=== PATIENT | male | born 1985 | race African-American/Black ===

== ENCOUNTER 2017-11-03 01:10 | Emergency (ER) | payer SELFPAY ==
[~2017-11-03] VITALS: Ht 175.3 cm; Wt 83.9 kg
[2017-11-03 01:15] VITALS: BP 115/83
--- NOTE | 2017-11-03 01:21 | NUR ---
PT TO BED 9
--- NOTE | 2017-11-03 01:40 | NUR ---
31/M CAME IN ED, C/O 10/10 BL FEET PRESSURE-LIKE PAIN AND SWELLING, X3 WEEKS, WORSENING X1 DAY. PT REPORTS PAIN ON TOP OF L FOOT WHEN AMBULATING. SLIGHT SWELLING AND SLIGHT REDNESS NOTED ON TOE, +TENDERNESS, CAP REFILL<3S. APPROXIMATELY 1 INCH CUT NOTED ON L FOOT. PT WENT TO [facility] TODAY, WAS DX WITH DERMATITIS, RX BACITRACIN WHICH PT DID NOT FILL YET. PT DENIES MED HX, RX. NKA. ER MD MADE AWARE.
--- NOTE | 2017-11-03 02:40 | NUR ---
DR EVALUATING AT BEDSIDE
[2017-11-03] MEDS ORDERED: KETOROLAC 30 MG/ML VIAL IM ONE (02:45)
--- NOTE | 2017-11-03 03:10 | NUR ---
PT PROVIDED WITH HOMELESS RESOURCE PACKET AND BUS PASS FOR TRANSPORTATION.
[2017-11-03 03:19] VITALS: BP 111/65
--- NOTE | 2017-11-03 03:19 | NUR ---
Patient discharged with v/s stable. Written and verbal after care instructions given and explained. Patient alert, oriented and verbalized understanding of instructions. Ambulatory with crutches. All questions addressed prior to discharge. ID band removed. Patient advised to follow up with PMD. Rx of NAPROSYN given. Patient educated on indication of medication including possible reaction and side effects. Opportunity to ask questions provided and answered.
== END 2017-11-03 03:19 | disposition home or self-care (01) ==
LOC: MED 01:10
DX: M79.671 Pain in right foot (principal); M79.672 Pain in left foot; M79.1 Myalgia; Z59.0 Homelessness
CPT/HCPCS: 96372; 99283; J1885

== ENCOUNTER 2017-11-20 18:47 | Emergency (ER) | payer SELFPAY ==
[~2017-11-20] VITALS: Ht 175.3 cm; Wt 90.3 kg
[2017-11-20 18:57] VITALS: BP 136/84
--- NOTE | 2017-11-20 20:04 | NUR ---
PT AMBULATED TO ER BED 01
--- NOTE | 2017-11-20 20:10 | NUR ---
CAME IN WITH C/O BILATERAL FOOT, ANKLES, TOES FOR A WEEK, NO TRAUMA NOR INJURY, HE WALKS ALL DAY.
[2017-11-20 21:06] VITALS: BP 119/75
--- NOTE | 2017-11-20 21:12 | NUR ---
Patient discharged with v/s stable. Written and verbal after care instructions given and explained. Patient alert, oriented and verbalized understanding of instructions. Ambulatory with steady gait. All questions addressed prior to discharge. ID band removed. Patient advised to follow up with PMD. Rx of COLCHICINE 0.6MG, ALLOPURINOL 300MG, given. Patient educated on indication of medication including possible reaction and side effects. Opportunity to ask questions provided and answered.
== END 2017-11-20 21:12 | disposition home or self-care (01) ==
LOC: MED 18:47
DX: M10.072 Idiopathic gout, left ankle and foot (principal); M10.071 Idiopathic gout, right ankle and foot; M10.062 Idiopathic gout, left knee; M10.061 Idiopathic gout, right knee
CPT/HCPCS: 99283

== ENCOUNTER 2017-12-05 17:45 | Emergency (ER) | payer SELFPAY ==
[~2017-12-05] VITALS: Ht 175.3 cm; Wt 96.6 kg
[2017-12-05 18:00] VITALS: BP 112/64
--- NOTE | 2017-12-05 18:05 | NUR ---
pt to lobby awaiting avaiable room with steady gait. vss. nad.
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
--- NOTE | 2017-12-05 19:14 | NUR ---
REPORT RECIEVED FROM BIENVENIDO KNAPP. ASSUMED CARE OF PT.
[2017-12-05] MEDS: SILVER SULFADIAZINE 1% 50 GM JAR TP ONE (19:34)
[2017-12-05 19:47] VITALS: BP 118/69
--- NOTE | 2017-12-05 19:48 | NUR ---
Patient discharged with v/s stable. Written and verbal after care instructions given and explained. Patient alert, oriented and verbalized understanding of instructions. Ambulatory with steady gait. All questions addressed prior to discharge. ID band removed. Patient advised to follow up with PMD. Rx of BACITRACIN, TYLENOL given. Patient educated on indication of medication including possible reaction and side effects. Opportunity to ask questions provided and answered.
== END 2017-12-05 19:48 | disposition home or self-care (01) ==
LOC: MED 17:45
DX: T23.271A Burn of second degree of right wrist, initial encounter (principal); E07.9 Disorder of thyroid, unspecified; Z88.8 Allergy status to other drugs, medicaments and biological substances; Z91.013 Allergy to seafood; X13.1XXA Other contact with steam and other hot vapors, initial encounter; Y93.89 Activity, other specified; Y92.89 Other specified places as the place of occurrence of the external cause; Y99.8 Other external cause status
CPT/HCPCS: 16020; 99284

== ENCOUNTER 2017-12-08 12:54 | Emergency (ER) | payer MEDICAID ==
[~2017-12-08] VITALS: Ht 175.3 cm; Wt 85.3 kg
[2017-12-08 13:08] VITALS: BP 129/92
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
--- NOTE | 2017-12-08 13:29 | NUR ---
PT GIVEN DOG BITE REPORT FORM AT THIS TIME
[2017-12-08] MEDS ORDERED: KETOROLAC 60 MG/2 ML VIAL IM ONE (13:45)
[2017-12-08 14:17] VITALS: BP 129/92
--- NOTE | 2017-12-08 14:17 | NUR ---
Patient discharged with v/s stable. Written and verbal after care instructions given and explained. Patient alert, oriented and verbalized understanding of instructions. Ambulatory with steady gait. All questions addressed prior to discharge. ID band removed. Patient advised to follow up with PMD. Rx of NORCO AND MOTRIN given. Patient educated on indication of medication including possible reaction and side effects. Opportunity to ask questions provided and answered.
== END 2017-12-08 14:15 | disposition home or self-care (01) ==
LOC: MED 12:54
DX: M25.561 Pain in right knee (principal); K21.9 Gastro-esophageal reflux disease without esophagitis; M10.9 Gout, unspecified; M19.90 Unspecified osteoarthritis, unspecified site; Z91.013 Allergy to seafood; Z91.041 Radiographic dye allergy status
CPT/HCPCS: 96372; 99283; J1885

== ENCOUNTER 2017-12-18 22:46 | Emergency (ER) | payer MEDICAID ==
[~2017-12-18] VITALS: Ht 175.3 cm; Wt 85.3 kg
[2017-12-18 22:57] VITALS: BP 120/74
[2017-12-18] MEDS ORDERED: KETOROLAC 30 MG/ML VIAL IM ONE (23:55)
[2017-12-19] MEDS ORDERED: IBUPROFEN 600 MG TAB PO ONE (00:10)
[2017-12-19 00:44] VITALS: BP 120/74
== END 2017-12-19 00:48 | disposition home or self-care (01) ==
LOC: MED 22:46
DX: S46.912A Strain of unspecified muscle, fascia and tendon at shoulder and upper arm level, left arm, initial encounter (principal); K21.9 Gastro-esophageal reflux disease without esophagitis; E07.9 Disorder of thyroid, unspecified; F17.200 Nicotine dependence, unspecified, uncomplicated; Z88.8 Allergy status to other drugs, medicaments and biological substances; X58.XXXA Exposure to other specified factors, initial encounter; Y93.89 Activity, other specified; Y92.89 Other specified places as the place of occurrence of the external cause; Y99.8 Other external cause status
CPT/HCPCS: 73030; 99284; J1885

== ENCOUNTER 2017-12-21 23:38 | Emergency (ER) | payer MEDICAID ==
[~2017-12-21] VITALS: Ht 175.3 cm; Wt 89.6 kg
[2017-12-21 23:40] VITALS: BP 119/92
[2017-12-22] MEDS: IBUPROFEN 800 MG TAB PO ONE (03:09)
[2017-12-22] MEDS: HYDROcodone/APAP 10/325 MG 1 TAB TAB PO ONE (03:10)
[2017-12-22 03:30] VITALS: BP 119/92
== END 2017-12-22 03:30 | disposition home or self-care (01) ==
LOC: MED 23:38
DX: M25.512 Pain in left shoulder (principal); K21.9 Gastro-esophageal reflux disease without esophagitis; E07.9 Disorder of thyroid, unspecified; Z88.8 Allergy status to other drugs, medicaments and biological substances
CPT/HCPCS: 73030; 99284; Q0092

== ENCOUNTER 2018-01-29 08:50 | Emergency (ER) | payer OTHER, MEDICAID ==
[~2018-01-29] VITALS: Ht 177.8 cm; Wt 90.3 kg
[2018-01-29 08:56] VITALS: BP 116/68
[2018-01-29 10:11] VITALS: BP 105/64
== END 2018-01-29 10:11 | disposition home or self-care (01) ==
LOC: MED 08:50
DX: S90.32XA Contusion of left foot, initial encounter (principal); Z91.013 Allergy to seafood; Z88.8 Allergy status to other drugs, medicaments and biological substances; X58.XXXA Exposure to other specified factors, initial encounter; Y93.89 Activity, other specified; Y92.89 Other specified places as the place of occurrence of the external cause; Y99.8 Other external cause status
CPT/HCPCS: 99283

== ENCOUNTER 2018-02-02 07:05 | Emergency (ER) | payer OTHER, MEDICAID ==
[~2018-02-02] VITALS: Ht 177.8 cm; Wt 88.5 kg
[2018-02-02 07:13] VITALS: BP 120/88
[2018-02-02] MEDS ORDERED: NEOMYCIN/POLYMYXIN/BACITRACIN 0.9 GM/1 PKT TP ONE (07:39)
[2018-02-02 07:47] VITALS: BP 120/88
== END 2018-02-02 07:47 | disposition home or self-care (01) ==
LOC: MED 07:05
DX: L85.3 Xerosis cutis (principal); K21.9 Gastro-esophageal reflux disease without esophagitis; R03.0 Elevated blood-pressure reading, without diagnosis of hypertension; Z91.013 Allergy to seafood; Z88.8 Allergy status to other drugs, medicaments and biological substances
CPT/HCPCS: 99283

== ENCOUNTER 2018-02-14 07:46 | Emergency (ER) | payer OTHER, MEDICAID ==
[~2018-02-14] VITALS: Ht 177.8 cm; Wt 88.5 kg
[2018-02-14 07:50] VITALS: BP 136/78
--- NOTE | 2018-02-14 07:54 | NUR ---
PT AMBULATES TO BED 2 WITHOUT DIFFICULTY
--- NOTE | 2018-02-14 08:00 | NUR ---
C/O ALL 10 DIGITS TOE PAIN STARTED TODAY 09/12; - INJURY, INFLMATION, OR DIFFORMITY; ABLE TO AMBULATE TO BED 2 WITHOUT DIFFICULTY. DENIES N/V/D; SKIN IS PINK/WARM/DRY; AAOX4 WITH EVEN AND STEADY GAIT; LUNGS CLEAR BL; HR EVEN AND REGULAR; PT DENIES ANY FEVER, CP, SOB, OR COUGH AT THIS TIME; VSS; PATIENT POSITIONED FOR COMFORT; HOB ELEVATED; BEDRAILS UP X2; BED DOWN. ER MD MADE AWARE OF PT STATUS.
[2018-02-14 08:22] VITALS: BP 136/78
--- NOTE | 2018-02-14 08:24 | NUR ---
Patient discharged with v/s stable. Written and verbal after care instructions given and explained. Patient verbalized understanding. Ambulatory with steady gait. All questions addressed prior to discharge. Advised to follow up with PMD. Patient left without discharge paperwork.
== END 2018-02-14 08:24 | disposition home or self-care (01) ==
LOC: MED 07:46
DX: M79.674 Pain in right toe(s) (principal); M79.675 Pain in left toe(s); K21.9 Gastro-esophageal reflux disease without esophagitis; E07.9 Disorder of thyroid, unspecified; Z88.8 Allergy status to other drugs, medicaments and biological substances; Z91.018 Allergy to other foods
CPT/HCPCS: 99281

== ENCOUNTER 2018-02-23 19:48 | Emergency (ER) | payer OTHER, MEDICAID ==
[~2018-02-23] VITALS: Ht 177.8 cm; Wt 90.3 kg
--- NOTE | 2018-02-23 19:48 | NUR ---
Patient BIB [place] [employer] for pre-booking medical screening exam, transferred to bed 9. RN evaluating patient at bedside.
[2018-02-23 19:50] VITALS: BP 111/83
--- NOTE | 2018-02-23 19:59 | NUR ---
32 YO M BIB [facility] FOR PRE-BOOK. PT WAS TACKLED TO THE GROUP HAS A SMALL LACERATION TO RIGHT FORHEARD. PT DENIES N/V, LOC OR PAIN AT THIS TIME. BED IN LOWER LOCKED POSITION. ER MD MADE AWARE OF PT STATUS. WILL CONTINUE TO MONITOR.
--- NOTE | 2018-02-23 20:03 | NUR ---
Dr. Hicsk evaluating patient at bedside.
[2018-02-23 20:21] VITALS: BP 119/88
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
== END 2018-02-23 20:22 ==
LOC: MED 19:48
DX: S00.81XA Abrasion of other part of head, initial encounter (principal); K21.9 Gastro-esophageal reflux disease without esophagitis; Z91.013 Allergy to seafood; Z88.8 Allergy status to other drugs, medicaments and biological substances; W45.8XXA Other foreign body or object entering through skin, initial encounter; Y93.89 Activity, other specified; Y92.89 Other specified places as the place of occurrence of the external cause; Y99.8 Other external cause status
CPT/HCPCS: 99283

== ENCOUNTER 2018-02-24 19:43 | Emergency (ER) | payer OTHER, MEDICAID ==
[~2018-02-24] VITALS: Ht 177.8 cm; Wt 90.3 kg
[2018-02-24 19:55] VITALS: BP 124/82
--- NOTE | 2018-02-24 19:55 | NUR ---
TO BED # 6 AMBULATORY, REPORT GIVEN TO JONELLE FARIA
--- NOTE | 2018-02-24 20:09 | NUR ---
PT BIB SELF FOR L GREAT TOE PAIN X2 DAYS. PT REPORTS PAIN AT 7/10. NO REDNESS, EDEMA, OR DEFORMITY PRESENT. PT HAS STEADY GAIT, PT REPORTS TINGLING/BURNING FEELING IN TOE. PT REPORTS HE WAS TRYING TO STOP, HE WAS WEARING SANDALS, AND HIS TOE BENT BACKWARDS. PT STATES THAT WEARING SHOES AND WALKING INCREASES THE PAIN. ER MD TO SEE PT. SAFETY PRECAUTIONS IN PLACE. WILL CONTINUE TO MONITOR.
--- NOTE | 2018-02-24 20:11 | NUR ---
X-RAY AT BEDSIDE
[2018-02-24 21:05] VITALS: BP 122/92
== END 2018-02-24 21:05 | disposition home or self-care (01) ==
LOC: MED 19:43
DX: S93.502A Unspecified sprain of left great toe, initial encounter (principal); K21.9 Gastro-esophageal reflux disease without esophagitis; Z91.013 Allergy to seafood; Z88.8 Allergy status to other drugs, medicaments and biological substances; V27.3XXA Person boarding or alighting a motorcycle injured in collision with fixed or stationary object, initial encounter; Y93.55 Activity, bike riding; Y92.488 Other paved roadways as the place of occurrence of the external cause; Y99.8 Other external cause status
CPT/HCPCS: 73630; 99283; Q0092

== ENCOUNTER 2018-03-15 03:35 | Emergency (ER) | payer OTHER, MEDICAID ==
[~2018-03-15] VITALS: Ht 177.8 cm; Wt 84.0 kg
[2018-03-15 03:46] VITALS: BP 126/73
--- NOTE | 2018-03-15 03:50 | NUR ---
AMBULATED TO ER BED 4
--- NOTE | 2018-03-15 03:54 | NUR ---
Patient being evaluated by physician at bedside.
--- NOTE | 2018-03-15 03:55 | NUR ---
32/M PRESENTS TO ED, C/O PAIN ON BL SOLES OF FEET. DRY NOTED, SKIN INTACT, +CIRCULATION, +SENSATION, +ROM. PT REQUESTING FOR "INSOLES FOR MY FEET." PT ALSO HAS 5 GANESH ON TOP OF HEAD, APPROXIMATED WELL, NO S/S OF INFECTION AT THIS TIME. PT IS HOMELESS, POOR HYGIENE NOTED, AOX4, GCS 15, RR EVEN AND UNLABORED. ER MD AT BEDSIDE. DENIES MED HX OR RX.
--- NOTE | 2018-03-15 03:56 | NUR ---
PT DENIES BEING HOMELESS, STATES THAT HE DOES HAVE A HOME.
[2018-03-15] MEDS ORDERED: IBUPROFEN 800 MG TAB PO ONE (04:00)
--- NOTE | 2018-03-15 04:30 | NUR ---
PT GIVEN SANDWICH AND SNACKS
--- NOTE | 2018-03-15 05:00 | NUR ---
PT DENIES BEING HOMELESS. PT WITH APPROPRIATE CLOTHING FOR WEATHER. PT REFUSED BUS PASS, PT TO ARRANGE OWN TRANSPORTATION.
[2018-03-15 05:05] VITALS: BP 130/70
== END 2018-03-15 05:05 | disposition home or self-care (01) ==
LOC: EDBD → MED 03:35
DX: M79.671 Pain in right foot (principal); M79.672 Pain in left foot; K21.9 Gastro-esophageal reflux disease without esophagitis; E07.9 Disorder of thyroid, unspecified; Z88.8 Allergy status to other drugs, medicaments and biological substances; Z91.018 Allergy to other foods; Z59.0 Homelessness
CPT/HCPCS: 99282

== ENCOUNTER 2018-03-16 12:25 | Emergency (ER) | payer OTHER, MEDICAID ==
[~2018-03-16] VITALS: Ht 177.8 cm; Wt 88.0 kg
[2018-03-16 12:54] VITALS: BP 117/71
[2018-03-16 14:49] VITALS: BP 116/72
== END 2018-03-16 14:51 | disposition home or self-care (01) ==
LOC: MED 12:25
DX: M25.512 Pain in left shoulder (principal); K21.9 Gastro-esophageal reflux disease without esophagitis; E07.9 Disorder of thyroid, unspecified; Z88.8 Allergy status to other drugs, medicaments and biological substances; Z91.013 Allergy to seafood; W18.39XA Other fall on same level, initial encounter; Y93.89 Activity, other specified; Y92.89 Other specified places as the place of occurrence of the external cause; Y99.8 Other external cause status
CPT/HCPCS: 73030; 99283

== ENCOUNTER 2018-03-18 15:57 | Emergency (ER) | payer MEDICAID, OTHER ==
--- NOTE | 2018-03-18 16:00 | NUR ---
PT CALLED, NO RESPONSE
--- NOTE | 2018-03-18 16:15 | NUR ---
PT CALLED, NO RESPONSE.
--- NOTE | 2018-03-18 16:27 | NUR ---
PT CALLED, NO RESPONSE. PT SEEN WALKING OUTSIDE THE HOSPITAL OVER BY [facility] OFF CAMPUS PROPERTY PER ADMITTING.
== END 2018-03-18 16:27 | disposition left against medical advice (07) ==
LOC: EDBD → MED 15:57
DX: Z53.21 Procedure and treatment not carried out due to patient leaving prior to being seen by health care provider (principal)

== ENCOUNTER 2018-03-18 16:43 | Emergency (ER) | payer MEDICAID, OTHER ==
--- NOTE | 2018-03-18 16:47 | NUR ---
PT CALLED NO RESPONSE
--- NOTE | 2018-03-18 17:00 | NUR ---
PT CALLED, NO RESPONSE
--- NOTE | 2018-03-18 17:25 | NUR ---
PT CALLED, NO RESPONSE
--- NOTE | 2018-03-18 17:48 | NUR ---
PT CALLED, NO RESPONSE
--- NOTE | 2018-03-18 17:57 | NUR ---
PT CALLED, NO REPSONSE
--- NOTE | 2018-03-18 18:15 | NUR ---
PT CALLED, NO RESPONSE
== END 2018-03-18 18:15 | disposition left against medical advice (07) ==
LOC: EDBD → MED 16:43
DX: Z53.21 Procedure and treatment not carried out due to patient leaving prior to being seen by health care provider (principal)

== ENCOUNTER 2018-03-19 01:00 | Emergency (ER) | payer OTHER, MEDICAID ==
[~2018-03-19] VITALS: Ht 177.8 cm; Wt 90.3 kg
--- NOTE | 2018-03-19 01:05 | NUR ---
TO BED # 4 AMBULATORY, REPORT GIVEN TO ONEAL FARIA
--- NOTE | 2018-03-19 01:07 | NUR ---
PT TAKEN TO BED 5
--- NOTE | 2018-03-19 01:10 | NUR ---
Dr. Vizcarra evaluating patient at bedside.
[2018-03-19] MEDS ORDERED: ONDANSETRON 4 MG TAB PO ONE (01:15)
--- NOTE | 2018-03-19 01:20 | NUR ---
32/M PRESENTS TO ED, C/O 9/10 EPIGASTRIC PAIN, X2 DAYS. PT REPORTS N/V. DENIES FEVER. PT AOX4, GCS 15, RR EVEN AND UNLABORED. LUNG SOUNDS CLEAR BL. BS ACTIVE X4, ABD SOFT ROUND NONTENDER. DENIES MED HX OR RX.
[2018-03-19] MEDS: KETOROLAC 30 MG/ML VIAL IM ONE ×2 (01:21→01:22)
--- NOTE | 2018-03-19 01:23 | NUR ---
PT REFUSED TORADOL IM DESPITE EDUCATION, PT STATED "I DON'T WANT THAT. MAKES ME SLEEPY." ER MADE AWARE.
[2018-03-19] MEDS ORDERED: IBUPROFEN 800 MG TAB PO ONE (01:25)
[2018-03-19 01:32] LABS: APPEARANCE,URINE CLEAR (CLEAR); BILIRUBIN,URINE NEGATIVE (NEGATIVE); BLOOD, URINE NEGATIVE (NEGATIVE); COLOR,URINE YELLOW (YELLOW); LEUKOCYTE ESTERASE ,URINE NEGATIVE (NEGATIVE); NITRITE, URINE NEGATIVE (NEGATIVE); UGLUCOSE NEGATIVE (NEGATIVE)
[2018-03-19 01:39] LABS: BASOPHILS % (AUTO) 0.5 % (0.0-2.0); EOSINOPHILS # (AUTO) 0.1 K/uL (0-0.4); EOSINOPHILS % (AUTO) 1.9 % (0.0-4.0); HEMATOCRIT 40.8 % (36-52); HEMOGLOBIN 13.2 g/dL (12.0-18.0); LYMPHOCYTES # (AUTO) 1.7 K/uL (2.0-11.5); LYMPHOCYTES % (AUTO) 27.4 % (20.5-51.1); MEAN CORPUSCULAR HEMOGLOBIN 30 pg (27-31); MEAN CORPUSCULAR HGB CONC 33 g/dL (33-37); MEAN CORPUSCULAR VOLUME 93.4 fL (80-94); MONOCYTES # (AUTO) 0.6 K/uL (0.8-1.0); MONOCYTES % (AUTO) 9.4 % (1.7-9.3); NEUTROPHILS # (AUTO) 3.7 K/uL (1.8-7.7); NEUTROPHILS % (AUTO) 60.8 % (42.2-75.2); PLATELET COUNT (AUTO) 237 K/uL (140-450); RED BLOOD CELL COUNT(AUTO) 4.36 MIL/uL (4.20-6.10); RED CELL DISTRIBUTION WIDTH 14.5 % (11.6-13.7); WHITE BLOOD COUNT (AUTO) 6.1 K/uL (4.8-10.8)
[2018-03-19 01:47] LABS: ALBUMIN 3.5 g/dL (3.4-5.0); CARBON DIOXIDE 30.5 mmol/L (21-32); TOTAL BILIRUBIN 0.3 mg/dL (0.0-1.0)
[2018-03-19 01:57] LABS: ANION GAP 7.6 (8-16); POTASSIUM 4.1 mmol/L (3.5-5.1)
--- NOTE | 2018-03-19 02:10 | NUR ---
DISCHARGE PAPERWORK READY, PT OK TO BE DISCHARGED IN EARLY AM PER ER MD
[2018-03-19 06:35] VITALS: BP 138/84
--- NOTE | 2018-03-19 06:35 | NUR ---
Patient given written and verbal discharge instructions and verbalizes understanding. Given copies of tests performed during visit. Patient is awake, alert and oriented. Ambulatory with steady gait. Refuses offer of nursing home placement. Given list of available shelters in surrounding areas.
== END 2018-03-19 06:35 | disposition home or self-care (01) ==
LOC: EDBD → MED 01:00
DX: R10.9 Unspecified abdominal pain (principal); R11.2 Nausea with vomiting, unspecified; K21.9 Gastro-esophageal reflux disease without esophagitis; E07.9 Disorder of thyroid, unspecified; Z88.8 Allergy status to other drugs, medicaments and biological substances; Z91.018 Allergy to other foods
CPT/HCPCS: 36415; 80053; 81003; 83690; 85025; 99283; J1885; Q0162

== ENCOUNTER 2018-03-19 15:09 | Emergency (ER) | payer OTHER, MEDICAID ==
[~2018-03-19] VITALS: Ht 177.8 cm; Wt 90.3 kg
[2018-03-19 15:24] VITALS: BP 122/76
--- NOTE | 2018-03-19 15:28 | NUR ---
PATIENT TO LOBBY FOR NEXT AVAIL. BED. XR ORDERED
--- NOTE | 2018-03-19 17:25 | NUR ---
CALLED PT FROM [facility] @ [phone]. NO ANSWER.
--- NOTE | 2018-03-19 17:58 | NUR ---
CALLED TO A BED, NO ANSWER.VIJAYA HURTADO AWARE/DR. CAN AWARE
== END 2018-03-19 17:58 | disposition left against medical advice (07) ==
LOC: EDBD → MED 15:09
DX: M54.2 Cervicalgia (principal); M25.511 Pain in right shoulder; Z53.21 Procedure and treatment not carried out due to patient leaving prior to being seen by health care provider; W01.0XXA Fall on same level from slipping, tripping and stumbling without subsequent striking against object, initial encounter; Y93.89 Activity, other specified; Y92.89 Other specified places as the place of occurrence of the external cause; Y99.8 Other external cause status
CPT/HCPCS: 72040; 73030; 99281

== ENCOUNTER 2018-03-20 08:18 | Emergency (ER) | payer OTHER, MEDICAID ==
[~2018-03-20] VITALS: Ht 172.7 cm; Wt 75.7 kg
[2018-03-20 08:23] VITALS: BP 128/77
[2018-03-20 08:34] VITALS: BP 121/75
== END 2018-03-20 08:34 | disposition home or self-care (01) ==
LOC: EDBD → MED 08:18
DX: S01.01XD Laceration without foreign body of scalp, subsequent encounter (principal); K21.9 Gastro-esophageal reflux disease without esophagitis; E07.9 Disorder of thyroid, unspecified; Z88.8 Allergy status to other drugs, medicaments and biological substances; Z91.018 Allergy to other foods; X58.XXXD Exposure to other specified factors, subsequent encounter
CPT/HCPCS: 99283

== ENCOUNTER 2018-03-23 01:27 | Emergency (ER) | payer OTHER, MEDICAID ==
[~2018-03-23] VITALS: Ht 177.8 cm; Wt 93.0 kg
--- NOTE | 2018-03-23 01:39 | NUR ---
NO ANSWER FOR TRIAGE AT THIS TIME.
[2018-03-23 01:54] VITALS: BP 121/83
--- NOTE | 2018-03-23 02:00 | NUR ---
Pt brought to Chair E. Pt demanding physical therapy for his back and leg. Dr De Leon ordered Torodol and pt refused it. Still argumentative and demanding PT despite informing pt that must be ordered by the doctor, possibly arrangement needed by case management which is here during the day, and PT is only here during the day.
--- NOTE | 2018-03-23 02:01 | NUR ---
PT TAKEN TO CHAIR E
[2018-03-23] MEDS ORDERED: KETOROLAC 60 MG/2 ML VIAL IM ONE (02:35)
[2018-03-23 02:55] VITALS: BP 121/83
--- NOTE | 2018-03-23 02:55 | NUR ---
Patient discharged with v/s stable. Written and verbal after care instructions given and explained. Patient verbalized understanding. Ambulatory with steady gait. All questions addressed prior to discharge. Advised to follow up with PMD. PT WAS GIVEN RECOMMENDATION REFFERAL TO DR. [facility]. PT UNDRSTOOD THE OUTPATIENT CARE.
== END 2018-03-23 02:55 | disposition home or self-care (01) ==
LOC: MED 01:27
DX: M79.605 Pain in left leg (principal); K21.9 Gastro-esophageal reflux disease without esophagitis; E07.9 Disorder of thyroid, unspecified; Z88.8 Allergy status to other drugs, medicaments and biological substances; Z91.018 Allergy to other foods
CPT/HCPCS: 96372; 99281; 99283

== ENCOUNTER 2018-03-25 11:20 | Emergency (ER) | payer OTHER, MEDICAID ==
[~2018-03-25] VITALS: Ht 177.8 cm; Wt 90.7 kg
--- NOTE | 2018-03-25 11:37 | NUR ---
PT AMBULATED TO ER BED 03
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
[2018-03-25 11:41] VITALS: BP 126/88
--- NOTE | 2018-03-25 13:00 | NUR ---
Patient being evaluated by physician at bedside.
[2018-03-25] MEDS ORDERED: BACITRACIN OINT 500 UNITS/GM PKT TP ONE ×2 (13:20→13:25)
--- NOTE | 2018-03-25 13:20 | NUR ---
bus voucher given to pt
--- NOTE | 2018-03-25 13:20 | NUR ---
pt given verbal order for bacitracin ointment
[2018-03-25 13:22] VITALS: BP 121/87
--- NOTE | 2018-03-25 13:22 | NUR ---
Patient discharged with v/s stable. Written and verbal after care instructions given and explained. Patient alert, oriented and verbalized understanding of instructions. Ambulatory with steady gait. All questions addressed prior to discharge. ID band removed. Patient advised to follow up with PMD. Rx of bactroban given. Patient educated on indication of medication including possible reaction and side effects. Opportunity to ask questions provided and answered.
== END 2018-03-25 13:22 | disposition home or self-care (01) ==
LOC: MED 11:20
DX: L73.9 Follicular disorder, unspecified (principal); K21.9 Gastro-esophageal reflux disease without esophagitis; E07.9 Disorder of thyroid, unspecified; Z88.8 Allergy status to other drugs, medicaments and biological substances; Z91.018 Allergy to other foods
CPT/HCPCS: 99283

== ENCOUNTER 2018-03-29 14:41 | Emergency (ER) | payer OTHER, MEDICAID ==
[~2018-03-29] VITALS: Ht 177.8 cm; Wt 88.0 kg
[2018-03-29 14:49] VITALS: BP 143/62
[2018-03-29] MEDS ORDERED: KETOROLAC 60 MG/2 ML VIAL IM ONE (15:10)
[2018-03-29 15:40] VITALS: BP 140/59
== END 2018-03-29 15:40 | disposition home or self-care (01) ==
LOC: MED 14:41
DX: S42.034A Nondisplaced fracture of lateral end of right clavicle, initial encounter for closed fracture (principal); K21.9 Gastro-esophageal reflux disease without esophagitis; E07.9 Disorder of thyroid, unspecified; Z88.8 Allergy status to other drugs, medicaments and biological substances; Z91.018 Allergy to other foods; X58.XXXA Exposure to other specified factors, initial encounter; Y93.89 Activity, other specified; Y92.89 Other specified places as the place of occurrence of the external cause; Y99.8 Other external cause status
CPT/HCPCS: 96372; 99283; J1885

== ENCOUNTER 2018-03-30 20:45 | Emergency (ER) | payer OTHER, MEDICAID ==
[~2018-03-30] VITALS: Ht 177.8 cm; Wt 87.2 kg
[2018-03-30 21:31] VITALS: BP 130/60
--- NOTE | 2018-03-30 21:34 | NUR ---
TO LOBBY A/W BED, AMBULATORY, VSS ERMD NOTED
--- NOTE | 2018-03-31 01:25 | NUR ---
PT TO ER BED 12
--- NOTE | 2018-03-31 01:30 | NUR ---
32/M PRESENTS TO ED, C/O HAVING REPORTED SEIZURE ACTIVITY TODAY. NO SEIZURE ACTIVITY NOTED THROUGHOUT STAY. PT STATED THAT HE IS HOMELESS AND HE JUST NEEDS A PLACE TO STAY TONIGHT. PT DENIES CP, SOB, N/V/D. PT AOX4, GCS 15, RR EVEN AND UNLABORED.
--- NOTE | 2018-03-31 01:30 | NUR ---
ER AT BEDSIDE
--- NOTE | 2018-03-31 06:07 | NUR ---
PT RESTING IN BED AT THIS TIME. VSS. NO SIGNS OF ACUTE DISTRESS NOTED. WILL CONTINUE TO MONITOR.
--- NOTE | 2018-03-31 06:08 | NUR ---
PT WITH A RESIDENTIAL ADDRESS BUT CHOOSES TO GO TO DESTINATION OF OWN CHOOSING. PT WITH ALL BELONGINGS. PT WITH CLOTHES APPROPRIATE FOR WEATHER. PT OFFERED TO HAVE BREAKFAST BUT PT REFUSED. HOMELESS RESOURCE PACKET PROVIDED TO PT.
--- NOTE | 2018-03-31 06:15 | NUR ---
Patient discharged with v/s stable. No signs of acute distress. Written and verbal after care instructions given and explained. Homeless resource paper given. Obtained bus pass for patient. Patient verbalized understanding. Ambulatory with steady gait. All questions addressed prior to discharge. Advised to follow up with PMD.
[2018-03-31 06:22] VITALS: BP 117/22
== END 2018-03-31 06:15 | disposition home or self-care (01) ==
LOC: MED 20:45
DX: R56.9 Unspecified convulsions (principal); K21.9 Gastro-esophageal reflux disease without esophagitis; E07.9 Disorder of thyroid, unspecified; Z59.0 Homelessness; Z88.8 Allergy status to other drugs, medicaments and biological substances; Z91.018 Allergy to other foods
CPT/HCPCS: 99283

== ENCOUNTER 2018-04-01 13:48 | Emergency (ER) | payer MEDICAID, OTHER ==
--- NOTE | 2018-04-01 13:50 | NUR ---
CALLED NO RESPONSE
--- NOTE | 2018-04-01 14:20 | NUR ---
PATIENT CALLED X 1, IN BATHROOM AT THIS TIME
--- NOTE | 2018-04-01 14:27 | NUR ---
pt called again at this time, no response
--- NOTE | 2018-04-01 14:29 | NUR ---
PT STILL IN THE RESTROOM AT THIS TIME
--- NOTE | 2018-04-01 14:35 | NUR ---
PT REMAINS IN THE RESTROOM AT THIS TIME
== END 2018-04-01 14:40 | disposition left against medical advice (07) ==
LOC: MED 13:48
DX: R06.02 Shortness of breath (principal); Z53.21 Procedure and treatment not carried out due to patient leaving prior to being seen by health care provider

== ENCOUNTER 2018-04-04 23:40 | Emergency (ER) | payer OTHER, MEDICAID ==
[~2018-04-04] VITALS: Ht 170.2 cm; Wt 86.6 kg
[2018-04-04 23:50] VITALS: BP 130/64
--- NOTE | 2018-04-04 23:51 | NUR ---
PT TAKEN TO CHAIR A
--- NOTE | 2018-04-04 23:51 | NUR ---
ASSUMED CARE OF PT AT THIS TIME. C/O LEFT GREAT TOE PAIN X 3 DAYS. PT DENIES ANY TRAUMA AT THIS TIME. AAOX4 WITH EVEN AND STEADY GAIT; PATIENT STATES PAIN OF 7/10; VSS; PATIENT POSITIONED FOR COMFORT; ER MD MADE AWARE OF PT STATUS. WILL CONTINUE TO MONITOR.
--- NOTE | 2018-04-04 23:53 | NUR ---
Dr. Hernandez evaluating patient
[2018-04-04] MEDS ORDERED: IBUPROFEN 600 MG TAB PO ONE (23:55)
[2018-04-05 00:04] VITALS: BP 130/64
== END 2018-04-05 00:03 | disposition home or self-care (01) ==
LOC: MED 23:40
DX: M79.675 Pain in left toe(s) (principal); K21.9 Gastro-esophageal reflux disease without esophagitis; E07.9 Disorder of thyroid, unspecified; Z88.8 Allergy status to other drugs, medicaments and biological substances; Z91.018 Allergy to other foods
CPT/HCPCS: 99282

== ENCOUNTER 2018-04-14 23:17 | Emergency (ER) | payer OTHER, MEDICAID ==
[~2018-04-14] VITALS: Ht 177.8 cm; Wt 86.4 kg
[2018-04-14 23:25] VITALS: BP 119/60
--- NOTE | 2018-04-14 23:28 | NUR ---
TO LOBBY A/W BED AMBULATORY, PARMINDER MODI NOTED
--- NOTE | 2018-04-15 02:00 | NUR ---
Pt sitting in waiting room sleeping. No changes.
--- NOTE | 2018-04-15 04:00 | NUR ---
Pt sitting in waiting room sleeping. No changes.
--- NOTE | 2018-04-15 05:53 | NUR ---
PT TAKEN TO CHAIR E
--- NOTE | 2018-04-15 05:57 | NUR ---
Dr. De Leon evaluating patient at bedside.
[2018-04-15] MEDS ORDERED: KETOROLAC 60 MG/2 ML VIAL IM ONE (06:00)
[2018-04-15 06:35] VITALS: BP 115/58
== END 2018-04-15 06:35 | disposition home or self-care (01) ==
LOC: MED 23:17
DX: R10.9 Unspecified abdominal pain (principal); M25.512 Pain in left shoulder; M79.672 Pain in left foot; M54.5 Low back pain; K21.9 Gastro-esophageal reflux disease without esophagitis; E07.9 Disorder of thyroid, unspecified; Z88.8 Allergy status to other drugs, medicaments and biological substances; Z91.013 Allergy to seafood
CPT/HCPCS: 81002; 96372; 99283; J1885

== ENCOUNTER 2018-04-25 21:01 | Emergency (ER) | payer OTHER, MEDICAID ==
[~2018-04-25] VITALS: Ht 175.3 cm; Wt 90.3 kg
[2018-04-25 21:01] VITALS: BP 137/76
--- NOTE | 2018-04-25 21:01 | NUR ---
Sim husain in [facility] - 04/25/18 at 2141 by MEDDCV PATIENT TAKEN TO IZZY Nicholson
--- NOTE | 2018-04-25 21:30 | NUR ---
PATIENT TAKEN TO ER CHAIR E.
[2018-04-25 21:35] VITALS: BP 137/76
--- NOTE | 2018-04-25 21:35 | NUR ---
PATIENT IS A 32 Y/O MALE WHO PRESENTS TO THE ED C/O MED REFILL. PT STATES THAT HE RAN OUT OF FLEXERIL. PT REPORTS 5/10 ACHING BODY PAIN AT THIS TIME. PT DENIES CP, SOB, N/V/D. PT AWAKE AND ALERT, RR EVEN/UNLABORED. PT REPOSITIONED FOR COMFORT, BED IN LOWEST POSITION. ER MD DR. COLBY NOTIFIED. WILL CONTINUE TO MONITOR.
--- NOTE | 2018-04-25 22:16 | NUR ---
Patient discharged with v/s stable. Written and verbal after care instructions given and explained. Patient alert, oriented and verbalized understanding of instructions. Ambulatory with steady gait. All questions addressed prior to discharge. ID band removed. Patient advised to follow up with PMD. Rx of FLEXERIL given. Patient educated on indication of medication including possible reaction and side effects. Opportunity to ask questions provided and answered.
== END 2018-04-25 22:16 | disposition home or self-care (01) ==
LOC: MED 21:01
DX: M79.10 Myalgia, unspecified site (principal); K21.9 Gastro-esophageal reflux disease without esophagitis; E07.9 Disorder of thyroid, unspecified; Z88.8 Allergy status to other drugs, medicaments and biological substances; Z91.012 Allergy to eggs; Z91.013 Allergy to seafood
CPT/HCPCS: 99283

== ENCOUNTER 2018-04-28 12:04 | Emergency (ER) | payer OTHER, MEDICAID ==
[~2018-04-28] VITALS: Ht 177.8 cm; Wt 90.3 kg
[2018-04-28 12:22] VITALS: BP 140/78
--- NOTE | 2018-04-28 13:20 | NUR ---
PATIENT PRESENTS TO ED FOR MEDICINE REFILL: FLEXERIL AND IBUPROFEN. DENIES ANY PROBLEM AT THIS TIME. SKIN IS PINK/WARM/DRY; AAOX4 WITH EVEN AND STEADY GAIT. PT DENIES ANY FEVER, CP, SOB, OR COUGH AT THIS TIME; PATIENT STATES PAIN OF 0/10 AT THIS TIME. VSS. PATIENT POSITIONED FOR COMFORT; HOB ELEVATED; BEDRAILS UP X2; BED DOWN. ER MD MADE AWARE OF PT STATUS.
[2018-04-28 13:43] VITALS: BP 132/73
--- NOTE | 2018-04-28 13:44 | NUR ---
Patient discharged with v/s stable. Written and verbal after care instructions given and explained. Patient alert, oriented and verbalized understanding of instructions. Ambulatory with steady gait. All questions addressed prior to discharge. ID band removed. Patient advised to follow up with PMD. Rx of FLEXERIL AND VALIUM given. Patient educated on indication of medication including possible reaction and side effects. Opportunity to ask questions provided and answered.
== END 2018-04-28 13:44 | disposition home or self-care (01) ==
LOC: MED 12:04
DX: K21.9 Gastro-esophageal reflux disease without esophagitis (principal); Z76.0 Encounter for issue of repeat prescription; E07.9 Disorder of thyroid, unspecified; Z91.013 Allergy to seafood; Z88.8 Allergy status to other drugs, medicaments and biological substances
CPT/HCPCS: 99283

== ENCOUNTER 2018-04-29 19:06 | Emergency (ER) | payer OTHER, MEDICAID ==
[~2018-04-29] VITALS: Ht 177.8 cm; Wt 90.3 kg
[2018-04-29 19:39] VITALS: BP 105/50
--- NOTE | 2018-04-29 21:11 | NUR ---
PT AMBULATED TO BED 12
--- NOTE | 2018-04-29 21:14 | NUR ---
PT GIVEN CUP FOR URINE SAMPLE AT THIS TIME
--- NOTE | 2018-04-29 21:41 | NUR ---
PT BIB SELF C/O EPIGASTRIC ABD PAIN 09/12 STARTING TODAY. DENIES NVD. STATES "I JUST WANT SOME FOOD AND A PLACE TO SLEEP". ABD SOFT, FLAT, NONTENDER. LBM TODAY. GIVEN HOMELESS PACKET AND MEAL.
--- NOTE | 2018-04-29 22:07 | NUR ---
PT MEGAN PO CHALLENGE
--- NOTE | 2018-04-29 22:37 | NUR ---
Patient discharged with v/s stable. Written and verbal after care instructions given and explained. Patient alert, oriented and verbalized understanding of instructions. Ambulatory with steady gait. All questions addressed prior to discharge. ID band removed. Patient advised to follow up with PMD. Rx of MYLANTA given. Patient educated on indication of medication including possible reaction and side effects. Opportunity to ask questions provided and answered. HOMELESS WAIVER SIGNED. MEAL AND HYGEINE PRODUCTS GIVEN TO PT.
== END 2018-04-29 22:07 | disposition home or self-care (01) ==
LOC: MED 19:06
DX: R10.13 Epigastric pain (principal); F10.10 Alcohol abuse, uncomplicated; F17.200 Nicotine dependence, unspecified, uncomplicated; K21.9 Gastro-esophageal reflux disease without esophagitis; Z91.013 Allergy to seafood; Z88.8 Allergy status to other drugs, medicaments and biological substances; Y90.9 Presence of alcohol in blood, level not specified
CPT/HCPCS: 99282

== ENCOUNTER 2018-05-03 01:58 | Emergency (ER) | payer OTHER, MEDICAID ==
[~2018-05-03] VITALS: Ht 177.8 cm; Wt 90.7 kg
[2018-05-03 02:02] VITALS: BP 124/77
--- NOTE | 2018-05-03 02:09 | NUR ---
PT TAKEN TO BED 11
--- NOTE | 2018-05-03 02:10 | NUR ---
ASSUMED CARE OF PT AT THIS TIME. C/O DEHYDRATION AND "NOT FEELING WELL" X 1 DAY. AAOX4 WITH EVEN AND STEADY GAIT; PATIENT STATES PAIN OF 0/10; VSS; PATIENT POSITIONED FOR COMFORT; HOB ELEVATED; BEDRAILS UP X2; BED DOWN. ER MD MADE AWARE OF PT STATUS. WILL CONTINUE TO MONITOR.
[2018-05-03 02:30] LABS: BASOPHILS % (AUTO) 0.4 % (0.0-2.0); EOSINOPHILS # (AUTO) 0.1 K/uL (0-0.4); HEMATOCRIT 43.2 % (36-52); HEMOGLOBIN 13.9 g/dL (12.0-18.0); LYMPHOCYTES # (AUTO) 1.4 K/uL (2.0-11.5); MEAN CORPUSCULAR HEMOGLOBIN 30 pg (27-31); MEAN CORPUSCULAR HGB CONC 32 g/dL (33-37); MEAN CORPUSCULAR VOLUME 93.8 fL (80-94); MONOCYTES # (AUTO) 0.4 K/uL (0.8-1.0); MONOCYTES % (AUTO) 5.8 % (1.7-9.3); NEUTROPHILS # (AUTO) 5.3 K/uL (1.8-7.7); NEUTROPHILS % (AUTO) 72.8 % (42.2-75.2); PLATELET COUNT (AUTO) 195 K/uL (140-450); RED CELL DISTRIBUTION WIDTH 14.2 % (11.6-13.7); WHITE BLOOD COUNT (AUTO) 7.2 K/uL (4.8-10.8)
[2018-05-03 02:40] VITALS: BP 124/77
--- NOTE | 2018-05-03 02:40 | NUR ---
Patient given written and verbal discharge instructions and verbalizes understanding. Given copies of tests performed during visit. Patient is awake, alert and oriented. Ambulatory with steady gait. Refuses offer of intermediate placement. PT REFUSES ALL RESOURCES; PT D/C IN CLEAN/DRY CLOTHES.
== END 2018-05-03 02:40 | disposition home or self-care (01) ==
LOC: MED 01:58
DX: E86.0 Dehydration (principal); K21.9 Gastro-esophageal reflux disease without esophagitis; Z91.013 Allergy to seafood; Z88.8 Allergy status to other drugs, medicaments and biological substances; Z59.0 Homelessness
CPT/HCPCS: 36415; 85025; 99283

== ENCOUNTER 2018-05-07 00:35 | Emergency (ER) | payer MEDICAID, OTHER ==
[~2018-05-07] VITALS: Ht 175.3 cm; Wt 84.0 kg
[2018-05-07 00:45] VITALS: BP 122/83
--- NOTE | 2018-05-07 00:49 | NUR ---
PT AMBULATED BACK TO THE LOBBY, PT VSS
--- NOTE | 2018-05-07 04:20 | NUR ---
PATIENT LEFT WITHOUT BEING SEEN BY DR. CAN. PT CALLED X3 IN LOBBY AND IN PARKING LOT. NO ANSWER. NO FURTHER CARE PROVIDED FOR PATIENT.
== END 2018-05-07 04:20 | disposition left against medical advice (07) ==
LOC: MED 00:35
DX: M79.671 Pain in right foot (principal); M79.672 Pain in left foot; Z53.21 Procedure and treatment not carried out due to patient leaving prior to being seen by health care provider

== ENCOUNTER 2018-05-09 13:07 | Emergency (ER) | payer OTHER, MEDICAID ==
[~2018-05-09] VITALS: Ht 177.8 cm; Wt 88.5 kg
--- NOTE | 2018-05-09 13:21 | NUR ---
PT TO ER BED 3
[2018-05-09 13:26] VITALS: BP 137/94
--- NOTE | 2018-05-09 13:30 | NUR ---
PATIENT PRESENTS TO ED WITH C/O LEFT SIDE OF TEETH ACHING AFTER ONE TOOTH PULLED OUT A WEEK AGO, TREATED WITH ANTIBIOTIC AND TYLENOL, DID NOT WORK, COULD NOT SLEEP DUE TO THE PAIN. PATIENT STATES PAIN OF 8/10 AT THIS TIME; VSS; PATIENT POSITIONED FOR COMFORT; HOB ELEVATED; BEDRAILS UP X2; BED DOWN. ER MD MADE AWARE OF PT STATUS.
--- NOTE | 2018-05-09 13:45 | NUR ---
Patient being evaluated by physician at bedside.
[2018-05-09] MEDS ORDERED: LIDOCAINE VISCOUS 2% 20 ML UDC PO ONE (14:05)
--- NOTE | 2018-05-09 14:10 | NUR ---
PT TOOK HIS OWN MEDICATION TYLENOL #3 BY HIMSELF, ED MD MADE AWARE.
[2018-05-09] MEDS ORDERED: LIDOCAINE VISCOUS 2% 20 ML UDC ONE (14:22)
[2018-05-09 15:25] VITALS: BP 137/94
--- NOTE | 2018-05-09 15:26 | NUR ---
Patient discharged with v/s stable. Written and verbal after care instructions given and explained. Patient alert, oriented and verbalized understanding of instructions. Ambulatory with steady gait. All questions addressed prior to discharge. ID band removed. Patient advised to follow up with PMD. Rx of VISCOUS LIDOCAINE 1% given. Patient educated on indication of medication including possible reaction and side effects. Opportunity to ask questions provided and answered.
--- NOTE | 2018-05-09 15:27 | NUR ---
PT ASKED FOR BUS TOKEN---HOUSE [facility] CALLED FOR REQUEST
== END 2018-05-09 15:26 | disposition home or self-care (01) ==
LOC: MED 13:07
DX: R51 Headache (principal); R22.0 Localized swelling, mass and lump, head; K21.9 Gastro-esophageal reflux disease without esophagitis; Z88.8 Allergy status to other drugs, medicaments and biological substances; Z91.013 Allergy to seafood
CPT/HCPCS: 99283

== ENCOUNTER 2018-05-20 21:09 | Emergency (ER) | payer OTHER, MEDICAID ==
[~2018-05-20] VITALS: Ht 175.3 cm; Wt 81.6 kg
[2018-05-20 22:12] VITALS: BP 138/87
--- NOTE | 2018-05-20 22:14 | NUR ---
PT AMBULATD TO CHAIR E WITH VSS.
[2018-05-20 22:20] VITALS: BP 138/87
--- NOTE | 2018-05-20 22:20 | NUR ---
PT IS A 32 Y/O MALE WHO PRESENTS TO THE ED C/O BILAT FOOT PAIN. PT STATES THAT IT HAS BEEN GOING ON X2 DAYS. PT REPORTS 10/10 ACHING BILAT FOOT PAIN THAT DOES NOT RADIATE. NO OBVIOUS TRAUMA/DEFORMITY, CMS INTACT. PT DENIES CP, SOB, N/V/D. PT AWAKE AND ALERT, RR EVEN/UNLABORED. PT REPOSITIONED FOR COMFORT, BED IN LOWEST POSITION. ER MD DR. RAE NOTIFIED. WILL CONTINUE TO MONITOR.
--- NOTE | 2018-05-20 22:45 | NUR ---
PATIENT EXPRESSING WISH TO GET BED. PT EDUCATED ON ED PROCESS ON ACUITY LEVEL.
--- NOTE | 2018-05-20 22:55 | NUR ---
PATIENT LEFT WITHOUT BEING SEEN BY ER PROVIDER. NO FURTHER CARE PROVIDED FOR PATIENT.
== END 2018-05-20 21:53 | disposition left against medical advice (07) ==
LOC: MED 21:09
DX: M79.671 Pain in right foot (principal); M79.672 Pain in left foot; Z53.21 Procedure and treatment not carried out due to patient leaving prior to being seen by health care provider

== ENCOUNTER 2018-05-30 15:38 | Emergency (ER) | payer OTHER, MEDICAID ==
[~2018-05-30] VITALS: Ht 175.3 cm; Wt 88.5 kg
[2018-05-30 15:41] VITALS: BP 134/92
--- NOTE | 2018-05-30 16:04 | NUR ---
Patient ambulated to bed 11.
--- NOTE | 2018-05-30 16:17 | NUR ---
PATIENT PRESENTS TO ED WITH C/O BILAT OUTER FOOT PAIN 10/10 SHARP/SPASM, NON RADIATING PAIN WHEN WALKING X +1 YEAR, AND LOWER BACK PAIN. DENIES FEVER, N/V/D, BURNING ON URINATION. NO INJURY OR SWELLING NOTED. HX OF TCA & SLIP AND FALL IN MARCH 2018 PER PT. AAOX4 WITH EVEN AND STEADY GAIT. VSS; PATIENT POSITIONED FOR COMFORT; HOB ELEVATED; BEDRAILS UP X1; BED DOWN. ER MD MADE AWARE OF PT STATUS.
--- NOTE | 2018-05-30 16:18 | NUR ---
SEEN BY LY
[2018-05-30 17:39] VITALS: BP 128/77
--- NOTE | 2018-05-30 17:40 | NUR ---
Patient discharged with v/s stable. Written and verbal after care instructions given and explained. Patient alert, oriented and verbalized understanding of instructions. Ambulatory with steady gait. All questions addressed prior to discharge. ID band removed. Patient advised to follow up with PMD. Rx of PEPCID given. Patient educated on indication of medication including possible reaction and side effects. Opportunity to ask questions provided and answered. HOMELESS PACKET, HYGIENE PACKET & HOMELESS RESOURCES PACKET GIVEN UPON DISCHARGE.
== END 2018-05-30 17:40 | disposition home or self-care (01) ==
LOC: MED 15:38
DX: M79.671 Pain in right foot (principal); M79.672 Pain in left foot; Z91.013 Allergy to seafood; Z88.8 Allergy status to other drugs, medicaments and biological substances
CPT/HCPCS: 99283

== ENCOUNTER 2018-06-02 04:20 | Emergency (ER) | payer OTHER, MEDICAID ==
[~2018-06-02] VITALS: Ht 175.3 cm; Wt 87.5 kg
[2018-06-02 04:31] VITALS: BP 117/56
--- NOTE | 2018-06-02 04:40 | NUR ---
C/O OF RIGHT HEAD LACERATION, BLEEDING CONTROLLED, LOC X 4, NO VISUAL DISTURBANCES, PATIENT IS STABLE AND ABLE TO AMBULATE. VSS. ED MD AT BEDSIDE.
[2018-06-02 05:05] VITALS: BP 117/56
--- NOTE | 2018-06-02 05:06 | NUR ---
Patient discharged with v/s stable. Written and verbal after care instructions given and explained. Patient verbalized understanding. Ambulatory with steady gait. All questions addressed prior to discharge. Advised to follow up with PMD.
== END 2018-06-02 05:06 | disposition home or self-care (01) ==
LOC: MED 04:20
DX: S01.81XA Laceration without foreign body of other part of head, initial encounter (principal); Z88.8 Allergy status to other drugs, medicaments and biological substances; W19.XXXA Unspecified fall, initial encounter; Y93.89 Activity, other specified; Y92.89 Other specified places as the place of occurrence of the external cause; Y99.8 Other external cause status
CPT/HCPCS: 90471; 90715; 99283

== ENCOUNTER 2018-06-04 20:37 | Emergency (ER) | payer OTHER, MEDICAID ==
[~2018-06-04] VITALS: Ht 175.3 cm; Wt 89.8 kg
[2018-06-04 20:58] VITALS: BP 128/80
--- NOTE | 2018-06-04 20:58 | NUR ---
TO CHAIR E, AMBULATORY.
--- NOTE | 2018-06-04 21:05 | NUR ---
PT IS A 32 Y/O MALE WHO PRESENTS TO THE ED C/O NUMBNESS. PT STATES THAT HE WAS WALKING WHEN HIS FEET STARTED TO HURT. PT REPORTS 10/10 ACHING PAIN THAT DOES NOT RADIATE. NUMBNESS ON HIS BILATERAL FEET AND TOES. PT DENIES TX/INJURY. PT AWAKE AND ALERT, RR EVEN/UNLABORED. PT REPOSITIONED FOR COMFORT, BED IN LOWEST POSITION. ER PROVIDER NOTIFIED. WILL CONTINUE TO MONITOR.
[2018-06-04 21:40] VITALS: BP 119/85
--- NOTE | 2018-06-04 21:40 | NUR ---
Patient left without discharge paperwork. Pt walked out of ED before being able to give RX. Unable to give homeless packet and food. ER provider notified. Rx of IBUPROFEN 600MG given.
== END 2018-06-04 21:40 | disposition home or self-care (01) ==
LOC: MED 20:37
DX: M79.672 Pain in left foot (principal); R20.2 Paresthesia of skin; Z91.013 Allergy to seafood; Z88.8 Allergy status to other drugs, medicaments and biological substances
CPT/HCPCS: 99282

== ENCOUNTER 2018-06-05 18:56 | Emergency (ER) | payer OTHER, MEDICAID ==
[~2018-06-05] VITALS: Ht 177.8 cm; Wt 89.8 kg
[2018-06-05 19:10] VITALS: BP 125/71
--- NOTE | 2018-06-05 19:13 | NUR ---
TO LOBBY A/W BED, PARMINDER MODI NOTED
--- NOTE | 2018-06-05 19:27 | NUR ---
PT AMBULATED TO ER BED 11
--- NOTE | 2018-06-05 19:30 | NUR ---
32 Y/O M PRESENTED TO ED WITH C/O ABDOMINAL PAIN. PER PT BELIEVES HE HAS THE STOAMCH FLU, JUST HAS STOAMCH CRAMPS WITH NO PAIN. DENIES N/V/D. SYMPTOMS HAS LASTED 15 HOURS. EPIGASTRIC AREA TENDER TO TOUCH. SIDERAIL X1 UP, FOR JEREMY. NOTIFIED. WILL CONTINUE TO MONITOR.
[2018-06-05] MEDS ORDERED: KETOROLAC 60 MG/2 ML VIAL IM ONE (20:25)
[2018-06-05] MEDS ORDERED: ONDANSETRON 4 MG ODT PO ONE (20:25)
--- NOTE | 2018-06-05 20:41 | NUR ---
PT RETURN FROM XRAY
--- NOTE | 2018-06-05 20:53 | NUR ---
PT REFUSED TORADOL, STATES " I DONT NEED IT".
--- NOTE | 2018-06-05 21:20 | NUR ---
Patient discharged with v/s stable. Written and verbal after care instructions given and explained. Patient alert, oriented and verbalized understanding of instructions. Ambulatory with steady gait. All questions addressed prior to discharge. ID band removed. Patient advised to follow up with PMD. Rx of ZOFRAN ODT, LACTULOSE, MOTRIN given. Patient educated on indication of medication including possible reaction and side effects. Opportunity to ask questions provided and answered.
[2018-06-05 21:22] VITALS: BP 103/54
== END 2018-06-05 21:20 | disposition home or self-care (01) ==
LOC: MED 18:56
DX: R10.9 Unspecified abdominal pain (principal); R51 Headache; Z91.013 Allergy to seafood; Z88.8 Allergy status to other drugs, medicaments and biological substances
CPT/HCPCS: 74022; 99283; J1885; Q0162

== ENCOUNTER 2018-06-09 04:26 | Emergency (ER) | payer OTHER, MEDICAID ==
[~2018-06-09] VITALS: Ht 175.3 cm; Wt 86.6 kg
[2018-06-09 04:33] VITALS: BP 135/90
--- NOTE | 2018-06-09 04:33 | NUR ---
PT AMBULATED TO BED 11.
--- NOTE | 2018-06-09 04:35 | NUR ---
PT C/O THROBBING HEADACHE ON THE LEFT SIDE, 5/10 PAIN, NO VISUAL DISTURBANCES, PERRLA 3MM, NO N/V. PT HAS NOT TAKEN ANY PREVIOUS MEDICATIONS. ALLERGY TO IODINE. ER MD AWARE. PATIENT SITTING CALMLY IN THE CHAIR. WILL CONTINUE TO MONITOR.
[2018-06-09] MEDS ORDERED: KETOROLAC 60 MG/2 ML VIAL IM ONE (04:45)
--- NOTE | 2018-06-09 05:11 | NUR ---
PT TAKEN TO GET A CT BY WHEELCHAIR BY RT.
--- NOTE | 2018-06-09 05:45 | NUR ---
PT REFUSED MEAL, BUS PASS. PT WEARING APPROPRIATE CLOTHING FOR WEATHER. REFUSED THE HOMELESS RESOURCE PACKET.
[2018-06-09 05:47] VITALS: BP 135/90
--- NOTE | 2018-06-09 05:47 | NUR ---
Patient discharged with v/s stable.Verbal after care instructions given and explained. Patient left without written paperwork and rx. Patient alert, oriented and verbalized understanding of instructions. Ambulatory with steady gait. All questions addressed prior to discharge. ID band removed. Patient advised to follow up with PMD.Opportunity to ask questions provided and answered.
== END 2018-06-09 05:47 | disposition home or self-care (01) ==
LOC: MED 04:26
DX: R51 Headache (principal); R03.0 Elevated blood-pressure reading, without diagnosis of hypertension; Z88.8 Allergy status to other drugs, medicaments and biological substances; Z91.013 Allergy to seafood
CPT/HCPCS: 70450; 96372; 99284; J1885

== ENCOUNTER 2018-06-09 20:58 | Emergency (ER) | payer MEDICAID, OTHER ==
--- NOTE | 2018-06-09 21:19 | NUR ---
PATIENT LEFT WITHOUT BEING SEEN BY DR. RAE. NO FURTHER CARE PROVIDED FOR PATIENT.
== END 2018-06-09 21:19 | disposition left against medical advice (07) ==
LOC: MED 20:58
DX: Z53.21 Procedure and treatment not carried out due to patient leaving prior to being seen by health care provider (principal)

== ENCOUNTER 2018-06-10 00:33 | Emergency (ER) | payer OTHER, MEDICAID ==
[~2018-06-10] VITALS: Ht 175.3 cm; Wt 90.7 kg
[2018-06-10 00:39] VITALS: BP 116/68
--- NOTE | 2018-06-10 00:41 | NUR ---
to chair E ambulatory.
--- NOTE | 2018-06-10 00:46 | NUR ---
PT C/O 03/15 ACHING HEADACHE STARTING TODAY. DENIES N/V/D. A/OX4, PERRLA 3 MM. DENIES TRAUMA TO HEAD.
--- NOTE | 2018-06-10 00:46 | NUR ---
PT REFUSING HOMELESS RESOURCES. Refuses offer of [facility] placement. Given list of available shelters in surrounding areas.
--- NOTE | 2018-06-10 00:46 | NUR ---
Dr. Hicks evaluating patient
[2018-06-10] MEDS ORDERED: KETOROLAC 30 MG/ML VIAL IM ONE (00:50)
[2018-06-10 01:00] VITALS: BP 116/68
[2018-06-10] MEDS ORDERED: IBUPROFEN 800 MG TAB PO ONE (01:00)
== END 2018-06-10 01:10 | disposition home or self-care (01) ==
LOC: MED 00:33
DX: R51 Headache (principal); Z91.013 Allergy to seafood; Z88.8 Allergy status to other drugs, medicaments and biological substances
CPT/HCPCS: 99282; J1885

== ENCOUNTER 2018-06-10 15:54 | Emergency (ER) | payer OTHER, MEDICAID ==
[~2018-06-10] VITALS: Ht 175.3 cm; Wt 88.1 kg
[2018-06-10 16:00] VITALS: BP 101/83
--- NOTE | 2018-06-10 16:06 | NUR ---
PT AMBULATED TO LOBBY AT THIS TIME.
--- NOTE | 2018-06-10 16:33 | NUR ---
PATIENT PRESENTS TO ED WITH AMBULATORY WITH STEADY GAIT; C/O BILATERAL FEET PAIN X "LONG TIME" THROAT PAIN WELL BOTH 10/10 FULL CLEAR SPEECH, NO DROOLING, NO MUFFLED VOICE NOTED .. DENIES N/V/D; SKIN IS PINK/WARM/DRY; AAOX4 WITH EVEN AND STEADY GAIT; LUNGS CLEAR BL; HR EVEN AND REGULAR; PT DENIES ANY FEVER, CP, SOB, OR COUGH AT THIS TIME; PATIENT STATES PAIN OF 10/10 AT THIS TIME; VSS; PATIENT POSITIONED FOR COMFORT; HOB ELEVATED; BEDRAILS UP X2; BED DOWN. ER MD MADE AWARE OF PT STATUS.
[2018-06-10] MEDS ORDERED: FAMOTIDINE 20 MG TAB PO ONE (17:00)
[2018-06-10] MEDS ORDERED: DICYCLOMINE HCL LIQUID 20 MG, ALUMINUM HYD/MAG/SIMETHICONE 30 ML, LIDOCAINE VISCOUS 2% ... PO ONE ×3 (17:00)
--- NOTE | 2018-06-10 17:44 | NUR ---
PT AMBULATED TO BED 9
--- NOTE | 2018-06-10 17:45 | NUR ---
LABS COMPLETED BY PHLEBOTOMY
[2018-06-10 17:46] LABS: BASOPHILS % (AUTO) 0.5 % (0.0-2.0); EOSINOPHILS # (AUTO) 0.1 K/uL (0-0.4); EOSINOPHILS % (AUTO) 0.9 % (0.0-4.0); HEMATOCRIT 39.5 % (36-52); LYMPHOCYTES # (AUTO) 2.1 K/uL (2.0-11.5); LYMPHOCYTES % (AUTO) 37.2 % (20.5-51.1); MEAN CORPUSCULAR HEMOGLOBIN 31 pg (27-31); MEAN CORPUSCULAR HGB CONC 33 g/dL (33-37); MEAN CORPUSCULAR VOLUME 93.8 fL (80-94); MONOCYTES # (AUTO) 0.4 K/uL (0.8-1.0); MONOCYTES % (AUTO) 6.5 % (1.7-9.3); NEUTROPHILS # (AUTO) 3.1 K/uL (1.8-7.7); NEUTROPHILS % (AUTO) 54.9 % (42.2-75.2); PLATELET COUNT (AUTO) 209 K/uL (140-450); RED BLOOD CELL COUNT(AUTO) 4.21 MIL/uL (4.20-6.10); RED CELL DISTRIBUTION WIDTH 14.1 % (11.6-13.7); WHITE BLOOD COUNT (AUTO) 5.6 K/uL (4.8-10.8)
[2018-06-10 18:00] VITALS: BP 105/85
--- NOTE | 2018-06-10 18:01 | NUR ---
AMBULATORY TO AND FROM RESTROOM---PT WILL NOT REMAIN IN ROOM ; OCCASIONAL REDIRECTION REQUIRED
[2018-06-10 18:20] LABS: POTASSIUM 3.5 mmol/L (3.5-5.1)
[2018-06-10 18:24] LABS: ANION GAP 15.9 (8-16); CARBON DIOXIDE 25.6 mmol/L (21-32)
[2018-06-10 18:25] LABS: ALBUMIN 3.6 g/dL (3.4-5.0); CREATININE 0.9 mg/dL (0.7-1.3); TOTAL BILIRUBIN 0.3 mg/dL (0.0-1.0)
--- NOTE | 2018-06-10 18:30 | NUR ---
PT LEFT AND STATES HE WOULD BE BACK LATER FOR HIS RESULTS. PT ADVISED NOT TO LEAVE
--- NOTE | 2018-06-10 18:33 | NUR ---
PT AMBULATED OUT OF THE ER WITH STEADY GAIT---WHEN ASKED IF HE WAS LEAVING PT RESPONDED HE WILL RETURN FOR RESULTS. NOTIFIED
--- NOTE | 2018-06-10 21:57 | NUR ---
PATIENT ELOPED FROM FACILITY. DISCHARGE INSTRUCTIONS NOT GIVEN TO PATIENT. DR. RAE NOTIFIED.
== END 2018-06-10 21:57 | disposition left against medical advice (07) ==
LOC: MED 15:54
DX: J02.9 Acute pharyngitis, unspecified (principal); G89.29 Other chronic pain; R07.89 Other chest pain; R10.9 Unspecified abdominal pain; R05 Cough; M79.671 Pain in right foot; M79.672 Pain in left foot
CPT/HCPCS: 36415; 71045; 73630; 80053; 83690; 84484; 85025; 87081; 93005; 99284; Q0092

== ENCOUNTER 2018-06-13 18:04 | Emergency (ER) | payer OTHER, MEDICAID ==
[~2018-06-13] VITALS: Ht 175.3 cm; Wt 89.8 kg
[2018-06-13 18:10] VITALS: BP 141/83
--- NOTE | 2018-06-13 18:14 | NUR ---
Patient ambulated to chair E. RN evaluating patient at bedside.
--- NOTE | 2018-06-13 18:20 | NUR ---
PT IS A 32 Y/O MALE WHO PRESENTS TO THE ED C/O BILATERAL SHOULDER PAIN X2 MONTHS. NO OBVIOUS TRAUMA/DEFORMITY. PT REPORTS 8/10 ACHING BILATERAL SHOULDER PAIN, CMS INTACT. PT DENIES CP, SOB, N/V/D. PT AWAKE AND ALERT, RR EVEN/UNLABORED. PT REPOSITIONED FOR COMFORT, SITTING IN CHAIR E. ER PROVIDER NOTIFIED. WILL CONTINUE TO MONITOR. PT STATES THAT HE HAS A HOME. HX DENIES
--- NOTE | 2018-06-13 18:30 | NUR ---
IZZY TINSLEY EVALUATING PATIENT.
[2018-06-13 18:42] VITALS: BP 152/82
--- NOTE | 2018-06-13 18:42 | NUR ---
Patient discharged with v/s stable. Written and verbal after care instructions given and explained. Patient alert, oriented and verbalized understanding of instructions. Ambulatory with steady gait. All questions addressed prior to discharge. ID band removed. Patient advised to follow up with PMD. Rx of TYENOL WITH CODEINE NO.3 given. Patient educated on indication of medication including possible reaction and side effects. Opportunity to ask questions provided and answered.
== END 2018-06-13 18:42 | disposition home or self-care (01) ==
LOC: MED 18:04
DX: M25.512 Pain in left shoulder (principal); M25.511 Pain in right shoulder; Z91.013 Allergy to seafood; Z88.8 Allergy status to other drugs, medicaments and biological substances
CPT/HCPCS: 99283

== ENCOUNTER 2018-06-14 17:25 | Emergency (ER) | payer OTHER, MEDICAID ==
[~2018-06-14] VITALS: Ht 175.3 cm; Wt 89.8 kg
[2018-06-14 17:48] VITALS: BP 138/90
--- NOTE | 2018-06-14 17:55 | NUR ---
WAIT IN LOBBY.VSS
--- NOTE | 2018-06-14 18:13 | NUR ---
PT TO CHAIR D
--- NOTE | 2018-06-14 18:24 | NUR ---
PT MOVED TO BED 7
--- NOTE | 2018-06-14 18:30 | NUR ---
PT BIB SELF TO THE ED WITH THE CHIEF C/O ABDOMINAL PAIN X TODAY. DENIES ANY N/V/D. DENIES BURNING OR FREQUENCY OF URINATION. HAD BM YESTERDAY. ABDOMEN SOFT, ROUND AND NON-TENDER. ACTIVE BOWEL SOUND. DENIES ANY OTHER POBLEM. REPORTS ABD PAIN OF 8/10 AT THIS TIME. ER MD AWARE.
--- NOTE | 2018-06-14 19:03 | NUR ---
REPORT GIVEN TO CHANNEL REBUILDER RN FOR CONTINUITY OF CARE.
--- NOTE | 2018-06-14 19:07 | NUR ---
RECEIVED REPORT FROM BIENVENIDO ESTRADA.
[2018-06-14] MEDS ORDERED: ALUMINUM HYD/MAG/SIMETHICONE 30 ML UDC PO ONE (19:45)
--- NOTE | 2018-06-14 19:50 | NUR ---
LAB AT BEDSIDE.
[2018-06-14 20:12] LABS: BASOPHILS % (AUTO) 0.5 % (0.0-2.0); EOSINOPHILS # (AUTO) 0.1 K/uL (0-0.4); EOSINOPHILS % (AUTO) 1.6 % (0.0-4.0); HEMATOCRIT 42.3 % (36-52); HEMOGLOBIN 14.3 g/dL (12.0-18.0); LYMPHOCYTES # (AUTO) 2.6 K/uL (2.0-11.5); LYMPHOCYTES % (AUTO) 34.3 % (20.5-51.1); MEAN CORPUSCULAR HEMOGLOBIN 32 pg (27-31); MEAN CORPUSCULAR HGB CONC 34 g/dL (33-37); MEAN CORPUSCULAR VOLUME 93.4 fL (80-94); MONOCYTES # (AUTO) 0.6 K/uL (0.8-1.0); MONOCYTES % (AUTO) 8.1 % (1.7-9.3); NEUTROPHILS # (AUTO) 4.1 K/uL (1.8-7.7); NEUTROPHILS % (AUTO) 55.5 % (42.2-75.2); PLATELET COUNT (AUTO) 208 K/uL (140-450); RED BLOOD CELL COUNT(AUTO) 4.53 MIL/uL (4.20-6.10); RED CELL DISTRIBUTION WIDTH 13.7 % (11.6-13.7); WHITE BLOOD COUNT (AUTO) 7.4 K/uL (4.8-10.8)
[2018-06-14 20:22] LABS: ANION GAP 10.6 (8-16); CARBON DIOXIDE 27.3 mmol/L (21-32); POTASSIUM 3.9 mmol/L (3.5-5.1)
[2018-06-14 20:28] LABS: ALBUMIN 3.6 g/dL (3.4-5.0); TOTAL BILIRUBIN 0.3 mg/dL (0.0-1.0)
[2018-06-14 21:00] VITALS: BP 127/74
--- NOTE | 2018-06-14 21:00 | NUR ---
Patient discharged with v/s stable. Written and verbal after care instructions given and explained. Patient alert, oriented and verbalized understanding of instructions. Ambulatory with steady gait. All questions addressed prior to discharge. ID band removed. Patient advised to follow up with PMD. Rx of TYLENOL given. Patient educated on indication of medication including possible reaction and side effects. Opportunity to ask questions provided and answered.
== END 2018-06-14 21:00 | disposition home or self-care (01) ==
LOC: MED 17:25
DX: R10.9 Unspecified abdominal pain (principal); Z88.8 Allergy status to other drugs, medicaments and biological substances; Z91.013 Allergy to seafood
CPT/HCPCS: 36415; 80053; 81002; 83690; 85025; 99283

== ENCOUNTER 2018-06-16 16:04 | Emergency (ER) | payer OTHER, MEDICAID ==
[~2018-06-16] VITALS: Ht 172.7 cm; Wt 90.7 kg
--- NOTE | 2018-06-16 16:07 | NUR ---
PT CALLED FOR TRIAGE, NOT IN ER LOBBY.
[2018-06-16 16:24] VITALS: BP 147/96
--- NOTE | 2018-06-16 16:27 | NUR ---
PT SENT TO LOBBY TO WAIT FOR AVAILABLE BED.
--- NOTE | 2018-06-16 18:45 | NUR ---
PT AMBULATED TO BED 01.
--- NOTE | 2018-06-16 18:55 | NUR ---
BIB SELF. PT C/O "FUNGAL" RASH ON HANDS AND FEET X 6 DAYS. PT STATES SHARP PAIN TO FEET WHEN AMBULATING. DENIES TRAUMA OR INJURY. AFEBRILE. NO N/V/D. HOB UP. BED SIDE RAILS UP X1. ON LOW BED POSITION, LOCKED. ER MADE AWARE OF PT STATUS.
--- NOTE | 2018-06-16 19:08 | NUR ---
RECEIVED REPORT FROM BIENVENIDO HERNANDEZ.
--- NOTE | 2018-06-16 19:28 | NUR ---
PATIENT MOVED TO ER CHAIR E.
--- NOTE | 2018-06-16 20:44 | NUR ---
PATIENT STATES THAT HE HAS A HOME ADDRESS.
[2018-06-16 20:45] VITALS: BP 142/84
--- NOTE | 2018-06-16 20:45 | NUR ---
Patient discharged with v/s stable. Written and verbal after care instructions given and explained. Patient alert, oriented and verbalized understanding of instructions. Ambulatory with steady gait. All questions addressed prior to discharge. ID band removed. Patient advised to follow up with PMD. Rx of WHITE PETROLEUM TOPICAL OINTMENT given. Patient educated on indication of medication including possible reaction and side effects. Opportunity to ask questions provided and answered.
== END 2018-06-16 20:45 | disposition home or self-care (01) ==
LOC: MED 16:04
DX: L85.3 Xerosis cutis (principal); Z88.8 Allergy status to other drugs, medicaments and biological substances; Z91.013 Allergy to seafood
CPT/HCPCS: 99283

== ENCOUNTER 2018-06-18 03:03 | Emergency (ER) | payer OTHER, MEDICAID ==
[~2018-06-18] VITALS: Ht 175.3 cm; Wt 88.6 kg
[2018-06-18 03:12] VITALS: BP 124/76
--- NOTE | 2018-06-18 03:28 | NUR ---
PT TO ED C/O ABD PAIN X TODAY WITH NAUSEA. PER PT "I PASSED GAS AND THEN IT STARTED HURTING I JUST WOKE UP" ABD IS SOFT NON TENDER. BOWEL SOUNDS ACTIVE. PT PLACED INTO CHAIR, PENDING MD FUNK.
--- NOTE | 2018-06-18 03:45 | NUR ---
PT TOLERATED PO CHALLENGE WELL. NO EPISODES OF VOMITTING.
[2018-06-18 04:35] VITALS: BP 126/81
== END 2018-06-18 04:35 | disposition home or self-care (01) ==
LOC: MED 03:03
DX: R10.30 Lower abdominal pain, unspecified (principal); Z59.0 Homelessness; Z88.8 Allergy status to other drugs, medicaments and biological substances; Z91.013 Allergy to seafood
CPT/HCPCS: 74018; 99283

== ENCOUNTER 2018-06-20 14:51 | Emergency (ER) | payer OTHER, MEDICAID ==
[~2018-06-20] VITALS: Ht 175.3 cm; Wt 89.1 kg
[2018-06-20 15:07] VITALS: BP 133/63
--- NOTE | 2018-06-20 15:12 | NUR ---
PATIENT AMBULATED TO BED 9 AT THIS TIME.
--- NOTE | 2018-06-20 15:26 | NUR ---
32 Y MALE BIB SELF C/O LT FOOT PAIN X2 DAYS. PT REPORTS CONSTANT SHARP PAIN AT 10/10 THAT RADIATES TO TOES WHEN AMBULATING. PALPABLE PEDAL PULSE, -ECCHYMOSIS, -SWELLING -REDNESS. +ROM WITH PAIN. VSS AT THIS TIME. AA0X4. BED IS DOWN, LOCKED, BED RAIL X1, ERMD NOTIFIED. MEDHX:DENIES RX:DENIES
--- NOTE | 2018-06-20 16:10 | NUR ---
ROOPA WRAP PLACED, ORTHO IMMOBILIZER PLACED BY MACK ALEGRE. PT VERBALIZES UNDERSTANDING OF USE. CAP REFILL <3 SECONDS.
[2018-06-20 16:20] VITALS: BP 134/62
== END 2018-06-20 16:20 | disposition home or self-care (01) ==
LOC: MED 14:51
DX: M79.672 Pain in left foot (principal); M79.675 Pain in left toe(s); Z91.013 Allergy to seafood; Z88.8 Allergy status to other drugs, medicaments and biological substances
CPT/HCPCS: 99282; 99283

== ENCOUNTER 2018-06-22 15:56 | Emergency (ER) | payer OTHER, MEDICAID ==
[~2018-06-22] VITALS: Ht 175.3 cm; Wt 88.5 kg
[2018-06-22 16:00] VITALS: BP 118/93
--- NOTE | 2018-06-22 16:07 | NUR ---
PT BIB SELF COMPLAINING OF RT SHOULDER PAIN X2 HOURS. PT STATES THAT DOOR CLOSED ON SHOULDER. PT REPORTS CONSTANT NON-RADIATING SHARP PAIN IN RT SHOULDER AT 9/10. +CMS, NO SWELLING, BRUISING, EYRTHEMA, OR DEFORMITY PRESENT. VSS. ER MD TO SEE PY.
[2018-06-22] MEDS ORDERED: ACETAMINOPHEN 325 MG TAB PO ONE (16:35)
[2018-06-22 16:53] VITALS: BP 134/78
== END 2018-06-22 16:53 | disposition home or self-care (01) ==
LOC: MED 15:56
DX: M25.511 Pain in right shoulder (principal); Z91.013 Allergy to seafood; Z88.8 Allergy status to other drugs, medicaments and biological substances; W20.8XXA Other cause of strike by thrown, projected or falling object, initial encounter; Y93.89 Activity, other specified; Y92.89 Other specified places as the place of occurrence of the external cause; Y99.8 Other external cause status
CPT/HCPCS: 99282

== ENCOUNTER 2018-06-25 18:49 | Emergency (ER) | payer OTHER, MEDICAID ==
[~2018-06-25] VITALS: Ht 175.3 cm; Wt 88.5 kg
[2018-06-25 19:15] VITALS: BP 145/71
--- NOTE | 2018-06-25 19:15 | NUR ---
VISUAL ACUITY BOTH EYE 20/30 , RT EYE 20/30 , LEFT EYE 20/40
--- NOTE | 2018-06-25 19:17 | NUR ---
TO LOBBY A/W BED, AMBULATORY.
--- NOTE | 2018-06-25 19:30 | NUR ---
PT AMBULATED TO ED BED 07.
[2018-06-25] MEDS ORDERED: KETOROLAC 60 MG/2 ML VIAL IM ONE (21:20)
[2018-06-25] MEDS ORDERED: IBUPROFEN 800 MG TAB PO ONE (21:25)
[2018-06-25 21:55] VITALS: BP 140/70
--- NOTE | 2018-06-25 21:55 | NUR ---
Patient discharged with v/s stable. Written and verbal after care instructions given and explained. Patient alert, oriented and verbalized understanding of instructions. Ambulatory with steady gait. All questions addressed prior to discharge. ID band removed. Patient advised to follow up with PMD. Rx of MOTRIN AND KETORALAC given. Patient educated on indication of medication including possible reaction and side effects. Opportunity to ask questions provided and answered.
== END 2018-06-25 21:55 | disposition home or self-care (01) ==
LOC: MED 18:49
DX: H10.9 Unspecified conjunctivitis (principal); R51 Headache; Z91.013 Allergy to seafood; Z88.8 Allergy status to other drugs, medicaments and biological substances
CPT/HCPCS: 99283; J1885

== ENCOUNTER 2018-07-04 04:42 | Emergency (ER) | payer OTHER, MEDICAID ==
[~2018-07-04] VITALS: Ht 175.3 cm; Wt 90.3 kg
[2018-07-04 04:47] VITALS: BP 127/80
--- NOTE | 2018-07-04 04:52 | NUR ---
PT TAKEN TO CHAIR E
--- NOTE | 2018-07-04 04:55 | NUR ---
PT BIB SELF C/O SOAR THROAT. PT STATES 7/10 SHARP PAIN, CONSTANTLY X24 HOURS. NO REDNESS, SWELLING OR DISCHARGE NOTED TO TONSILS. AIRWAY PATENT. PT SPEAKING IN COMPLETE SENTENCES, CLEAR SPEECH. DENIES N/V/D, PT ACTING APPROPRIATLY. ER MD AWARE OF PT STATUS. SAFETY PRECAUTIONS IN PLACE. PMH: DENIES RX: DENIES
--- NOTE | 2018-07-04 05:00 | NUR ---
Dr. Vizcarra evaluating patient
--- NOTE | 2018-07-04 05:05 | NUR ---
Patient discharged with v/s stable. Written and verbal after care instructions given and explained. Patient alert, oriented and verbalized understanding of instructions. Ambulatory with steady gait. All questions addressed prior to discharge. ID band removed. Patient advised to follow up with PMD. Rx of Cepacol Sensations Cooling Lozenge given. Patient educated on indication of medication including possible reaction and side effects. Opportunity to ask questions provided and answered.
[2018-07-04 05:09] VITALS: BP 125/78
== END 2018-07-04 05:05 | disposition home or self-care (01) ==
LOC: MED 04:42
DX: J02.8 Acute pharyngitis due to other specified organisms (principal); B97.89 Other viral agents as the cause of diseases classified elsewhere; Z88.8 Allergy status to other drugs, medicaments and biological substances; Z91.018 Allergy to other foods
CPT/HCPCS: 99282

== ENCOUNTER 2018-07-06 17:29 | Emergency (ER) | payer OTHER, MEDICAID ==
[~2018-07-06] VITALS: Ht 175.3 cm; Wt 90.7 kg
[2018-07-06 17:46] VITALS: BP 119/74
--- NOTE | 2018-07-06 18:20 | NUR ---
CALLED PT, NOT IN LOBBY, PER ADMITTING STAFF PT STATED HE WOULD RETURN IN 7 OR 8 MINUTES
--- NOTE | 2018-07-06 18:23 | NUR ---
PT AMBULATED TO CHAIR C AT THIS TIME
--- NOTE | 2018-07-06 18:24 | NUR ---
C/O RT SHOULDER PAIN, AND NECK PAIN SINCE APRIL. PT REPORTS ACHY PAIN AT 10/10 THAT TURNS INTO SHARP PAIN WITH HEAD MOVEMENT. THINKS IT MIGHT BE FROM FALL HE HAD IN APRIL. FULL ROM, +CMS MEDHX:DENIES RX:DENIES
--- NOTE | 2018-07-06 19:00 | NUR ---
PATIENT LEFT WITHOUT BEING SEEN BY ER PROVIDER. NO FURTHER CARE PROVIDED FOR PATIENT.
== END 2018-07-06 19:00 | disposition left against medical advice (07) ==
LOC: MED 17:29
DX: M25.511 Pain in right shoulder (principal); M54.2 Cervicalgia; Z53.21 Procedure and treatment not carried out due to patient leaving prior to being seen by health care provider

== ENCOUNTER 2018-07-17 23:11 | Emergency (ER) | payer OTHER, MEDICAID ==
[~2018-07-17] VITALS: Ht 175.3 cm; Wt 86.2 kg
[2018-07-17 23:19] VITALS: BP 131/83
--- NOTE | 2018-07-17 23:19 | NUR ---
PT TAKEN TO BED 12
--- NOTE | 2018-07-17 23:56 | NUR ---
Dr. Hicks evaluating patient at bedside.
--- NOTE | 2018-07-18 00:40 | NUR ---
PT IS HOMELESS, 2 SANDWICHES PROVIDED, BUS PASS PROVIDED, PT WITH CLOTHING APPROPRIATE FOR WEATHER. HOMELESS RESOURCE PACKET PROVIDED.
[2018-07-18 00:41] VITALS: BP 123/79
--- NOTE | 2018-07-18 00:41 | NUR ---
PT DISCHARGED WITH VSS, WRITTEN AND VERBAL INSTRUCTIONS EXPLAINED AND GIVEN. RX TYLENOL WITH CODEINE #3 GIVEN WITH EDUCATION. NO ADDITIONAL QUESTIONS. ID BAND REMOVED. PT VERBALIZED UNDERSTANDING. PT AMBULATORY WITH STEADY GAIT.
== END 2018-07-18 00:41 | disposition home or self-care (01) ==
LOC: MED 23:11
DX: M54.5 Low back pain (principal); Z91.013 Allergy to seafood; Z88.8 Allergy status to other drugs, medicaments and biological substances
CPT/HCPCS: 99283

== ENCOUNTER 2018-07-18 19:45 | Emergency (ER) | payer OTHER, MEDICAID ==
[~2018-07-18] VITALS: Ht 175.3 cm; Wt 86.2 kg
[2018-07-18 20:01] VITALS: BP 122/61
--- NOTE | 2018-07-18 20:03 | NUR ---
PT AMBULATED TO CHAIR C WITH VSS.
--- NOTE | 2018-07-18 20:07 | NUR ---
PT IS A 32 Y/O MALE WHO PRESENTS TO THE ED C/O LOW BACK PAIN X1 DAY. PT STATEST THAT PAIN IS ON AMBULATION AND POSITION CHANGE. PT DENIES TX/INJURY. PT REPORTS 10/10 ACHING LOW BACK PAIN THAT DOES NOT RADIATE. PT DENIES CP, SOB, N/V/D. PT AWAKE AND ALERT, RR EVEN/UNLABORED. PT REPOSITIONED FOR COMFORT, SITTING IN CHAIR. ER PROVIDER NOTIFIED. WILL CONTINUE TO MONITOR.
[2018-07-18] MEDS ORDERED: KETOROLAC 30 MG/ML VIAL IM ONE (20:50)
[2018-07-18 21:00] VITALS: BP 119/72
--- NOTE | 2018-07-18 21:00 | NUR ---
Patient discharged with v/s stable. Written and verbal after care instructions given and explained. Patient alert, oriented and verbalized understanding of instructions. Ambulatory with steady gait. All questions addressed prior to discharge. ID band removed. Patient advised to follow up with PMD. Rx of FLEXERIL 10MG AND IBUPROFEN 600MG given. Patient educated on indication of medication including possible reaction and side effects. Opportunity to ask questions provided and answered.
== END 2018-07-18 21:00 | disposition home or self-care (01) ==
LOC: MED 19:45
DX: M54.5 Low back pain (principal); Z91.013 Allergy to seafood; Z88.8 Allergy status to other drugs, medicaments and biological substances
CPT/HCPCS: 99283; J1885

== ENCOUNTER 2018-07-22 06:51 | Emergency (ER) | payer OTHER, MEDICAID ==
[~2018-07-22] VITALS: Ht 172.7 cm; Wt 91.8 kg
[2018-07-22 07:10] VITALS: BP 139/89
[2018-07-22] MEDS ORDERED: IBUPROFEN 600 MG TAB PO ONE (07:25)
--- NOTE | 2018-07-22 07:43 | NUR ---
PT BIB SELF C/O COUGH AND SORE THROAT X1 DAY. PT REPORTS 5/10 THROAT PAIN THAT INCREASES WITH SWALLOWING AND COUGHING. PT REPORTS DRY COUGH. RR EVEN, NON-LABORED, BREATH SOUNDS CLEAR THROUGHOUT. VSS. ER MD TO SEE PT. MEDHX:DENIES RX:DENIES
[2018-07-22 07:47] VITALS: BP 139/89
--- NOTE | 2018-07-22 07:47 | NUR ---
Patient discharged with v/s stable. Written and verbal after care instructions given and explained. Patient alert, oriented and verbalized understanding of instructions. Ambulatory with steady gait. All questions addressed prior to discharge. ID band removed. Patient advised to follow up with PMD. Rx of ACETAMINOPHEN AND CHLORASEPTIC SPRAY given. Patient educated on indication of medication including possible reaction and side effects. Opportunity to ask questions provided and answered. Addendum: 07/22/18 at 0757 by DORIAN PT PROVIDED FOOD IN TO GO BAG, BUS PASS, AND PRESCRIPTION SAVINGS CARD. PT IN WHEATHER APPROPRIATE CLOTHING.
== END 2018-07-22 07:47 | disposition home or self-care (01) ==
LOC: MED 06:51
DX: J02.9 Acute pharyngitis, unspecified (principal); Z91.013 Allergy to seafood; Z88.8 Allergy status to other drugs, medicaments and biological substances
CPT/HCPCS: 99282

== ENCOUNTER 2018-07-23 18:04 | Emergency (ER) | payer OTHER, MEDICAID ==
[~2018-07-23] VITALS: Ht 175.3 cm; Wt 90.7 kg
[2018-07-23 19:02] VITALS: BP 127/74
--- NOTE | 2018-07-23 19:09 | NUR ---
ORDERED XR LT. TOE. PATIENT TO LOBBY
--- NOTE | 2018-07-23 20:25 | NUR ---
PATIENT AMBULATED TO ER CHAIR A.
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
--- NOTE | 2018-07-23 20:45 | NUR ---
PATIENT MEDICATED WITH TYLENOL 500MG PER ORDER FROM YOLANDE PINON PT TOLERATED WELL.
[2018-07-23] MEDS ORDERED: ACETAMINOPHEN EXTRA STRENGTH 500 MG TAB PO ONE (20:55)
[2018-07-23 21:04] VITALS: BP 128/88
--- NOTE | 2018-07-23 21:04 | NUR ---
Patient discharged with v/s stable. Patient given homeless resources/packet, food and bus pass from housekeeper head. Written and verbal after care instructions given and explained. Patient alert, oriented and verbalized understanding of instructions. Ambulatory with steady gait. All questions addressed prior to discharge. ID band removed. Patient advised to follow up with PMD. Rx of ACETAMINOPHEN 325MG given. Patient educated on indication of medication including possible reaction and side effects. Opportunity to ask questions provided and answered.
[2018-07-23] MEDS ORDERED: ACETAMINOPHEN EXTRA STRENGTH 500 MG TAB ONE (21:06)
== END 2018-07-23 21:04 | disposition home or self-care (01) ==
LOC: MED 18:04
DX: S90.112A Contusion of left great toe without damage to nail, initial encounter (principal); Z88.8 Allergy status to other drugs, medicaments and biological substances; Z91.013 Allergy to seafood; W22.8XXA Striking against or struck by other objects, initial encounter; Y93.89 Activity, other specified; Y92.89 Other specified places as the place of occurrence of the external cause; Y99.8 Other external cause status
CPT/HCPCS: 73660; 99283

== ENCOUNTER 2018-07-25 01:00 | Emergency (ER) | payer OTHER, MEDICAID ==
[~2018-07-25] VITALS: Ht 175.3 cm; Wt 95.3 kg
[2018-07-25 01:09] VITALS: BP 142/84
--- NOTE | 2018-07-25 01:15 | NUR ---
PT TO ED WITH C/O ABD PAIN X "A FEW HOURS''. PT DENIES N/V. BOWEL SOUNDS ACTIVE. ABD IS SOFT NON TENDER. NO DEFORMITES OR OBVIOUS MASSES OR DISTENTION NOTED. PT PLACED INTO CHAIR, PENDING MD FUNK.
[2018-07-25] MEDS ORDERED: DICYCLOMINE 20 MG/2 ML VIAL IM ONE (01:35)
[2018-07-25] MEDS ORDERED: LIDOCAINE VISCOUS 2% 20 ML UDC PO ONE (01:35)
[2018-07-25] MEDS ORDERED: ACETAMINOPHEN 325 MG TAB PO ONE (01:35)
[2018-07-25] MEDS ORDERED: ALUMINUM HYD/MAG/SIMETHICONE 30 ML UDC PO ONE (01:35)
--- NOTE | 2018-07-25 01:44 | NUR ---
PT DECLINED BENTYL ADMIN. ER AWARE.
[2018-07-25 02:00] LABS: BASOPHILS % (AUTO) 0.8 % (0.0-2.0); EOSINOPHILS # (AUTO) 0.1 K/uL (0-0.4); EOSINOPHILS % (AUTO) 1.3 % (0.0-4.0); HEMATOCRIT 42.3 % (36-52); LYMPHOCYTES # (AUTO) 1.6 K/uL (2.0-11.5); LYMPHOCYTES % (AUTO) 29.3 % (20.5-51.1); MEAN CORPUSCULAR HEMOGLOBIN 31 pg (27-31); MEAN CORPUSCULAR HGB CONC 33 g/dL (33-37); MEAN CORPUSCULAR VOLUME 93.8 fL (80-94); MONOCYTES # (AUTO) 0.5 K/uL (0.8-1.0); MONOCYTES % (AUTO) 9.3 % (1.7-9.3); NEUTROPHILS # (AUTO) 3.2 K/uL (1.8-7.7); NEUTROPHILS % (AUTO) 59.3 % (42.2-75.2); PLATELET COUNT (AUTO) 208 K/uL (140-450); RED BLOOD CELL COUNT(AUTO) 4.51 MIL/uL (4.20-6.10); RED CELL DISTRIBUTION WIDTH 14.3 % (11.6-13.7); WHITE BLOOD COUNT (AUTO) 5.5 K/uL (4.8-10.8)
[2018-07-25 02:17] LABS: ALBUMIN 3.6 g/dL (3.4-5.0); ANION GAP 13.7 (8-16); CARBON DIOXIDE 25.1 mmol/L (21-32); CREATININE 0.9 mg/dL (0.7-1.3); POTASSIUM 3.8 mmol/L (3.5-5.1); TOTAL BILIRUBIN 0.3 mg/dL (0.0-1.0)
[2018-07-25 02:33] VITALS: BP 134/76
== END 2018-07-25 02:33 | disposition home or self-care (01) ==
LOC: MED 01:00
DX: R10.13 Epigastric pain (principal); Z88.8 Allergy status to other drugs, medicaments and biological substances; Z91.013 Allergy to seafood
CPT/HCPCS: 36415; 80053; 83690; 85025; 99284; J0500

== ENCOUNTER 2018-07-26 19:11 | Emergency (ER) | payer OTHER, MEDICAID ==
[~2018-07-26] VITALS: Ht 172.7 cm; Wt 90.7 kg
[2018-07-26 19:18] VITALS: BP 134/100
--- NOTE | 2018-07-26 19:18 | NUR ---
PT TAKEN TO CHAIR E
--- NOTE | 2018-07-26 19:20 | NUR ---
PT CAME INTO ER WITH C/O DIARRHEA X 1 DAY. PT STATED HE HAS SOME ABDOMINAL DISCOMFORT. PT WAS IN ER YESTERDAY FOR THE SAME CHIEF COMPLAINT. PT STATES HE HAS NO RELIEF. PT IS A/OX4. ER MD MADE AWARE OF STATUS, SAFETY MEASURES IN PLACE.
--- NOTE | 2018-07-26 19:29 | NUR ---
PA GENESIS WITH PT
[2018-07-26] MEDS ORDERED: LOPERAMIDE 2 MG CAP PO ONE (19:35)
[2018-07-26 19:55] VITALS: BP 134/100
--- NOTE | 2018-07-26 19:55 | NUR ---
Patient discharged with v/s stable. Written and verbal after care instructions given and explained. Patient alert, oriented and verbalized understanding of instructions. Ambulatory with steady gait. All questions addressed prior to discharge. ID band removed. Patient advised to follow up with PMD. Rx of LOPERAMIDE WAS given. Patient educated on indication of medication including possible reaction and side effects. Opportunity to ask questions provided and answered.
--- NOTE | 2018-07-26 19:55 | NUR ---
PT RECIEVED A BUS PASS, AND A MEAL.
== END 2018-07-26 19:55 | disposition home or self-care (01) ==
LOC: MED 19:11
DX: R19.7 Diarrhea, unspecified (principal); R10.9 Unspecified abdominal pain; Z91.013 Allergy to seafood; Z88.8 Allergy status to other drugs, medicaments and biological substances
CPT/HCPCS: 99282

== ENCOUNTER 2018-07-27 22:40 | Emergency (ER) | payer OTHER, MEDICAID ==
[~2018-07-27] VITALS: Ht 175.3 cm; Wt 90.3 kg
[2018-07-27 22:45] VITALS: BP 129/84
--- NOTE | 2018-07-27 22:49 | NUR ---
TO LOBBY AWAITING BED IN ED. VSS.
--- NOTE | 2018-07-28 04:50 | NUR ---
PT ambulated to room 12.
--- NOTE | 2018-07-28 04:51 | NUR ---
32 y/o M presented to ED with c/o chronic lower back pain since year 2012. denies injury. 10/13 sharp and intermintent. Per pt "when i lift boxes it hurts." denies hematuria and dysuira. no follow up with PCP for chronic pain. denies n/v/d. ERMD made aware. Will continue to monitor.
--- NOTE | 2018-07-28 04:57 | NUR ---
DR. CAN BEDSIDE EVALUATING PT
[2018-07-28 05:06] VITALS: BP 125/82
--- NOTE | 2018-07-28 05:06 | NUR ---
Patient discharged with v/s stable. Written and verbal after care instructions given and explained. Patient alert, oriented and verbalized understanding of instructions. Ambulatory with steady gait. All questions addressed prior to discharge. ID band removed. Patient advised to follow up with PMD. Rx of MOTRIN AND VALIUM WAS given. Patient educated on indication of medication including possible reaction and side effects. Opportunity to ask questions provided and answered.
== END 2018-07-28 05:06 | disposition home or self-care (01) ==
LOC: MED 22:40
DX: M54.5 Low back pain (principal); Z91.013 Allergy to seafood; Z88.8 Allergy status to other drugs, medicaments and biological substances
CPT/HCPCS: 81002; 99283

== ENCOUNTER 2018-07-29 18:03 | Emergency (ER) | payer OTHER, MEDICAID ==
[~2018-07-29] VITALS: Ht 172.7 cm; Wt 90.7 kg
[2018-07-29 18:22] VITALS: BP 116/87
--- NOTE | 2018-07-29 21:45 | NUR ---
NO ANSWER @ [id number]. PATIENT LEFT WITHOUT BEING SEEN BY DR. WARREN. NO FURTHER CARE PROVIDED FOR PATIENT.
--- NOTE | 2018-07-29 21:45 | NUR ---
CALLED FOR PT IN THE LOBBY AND OUTSIDE AND HE DID NOT RESPOND.
--- NOTE | 2018-07-29 22:09 | NUR ---
CALLED FOR PT SECOND TIME WITH NO RESPONSE.
== END 2018-07-29 21:44 | disposition left against medical advice (07) ==
LOC: MED 18:03
DX: R10.9 Unspecified abdominal pain (principal); Z53.21 Procedure and treatment not carried out due to patient leaving prior to being seen by health care provider

== ENCOUNTER 2018-07-30 23:18 | Emergency (ER) | payer OTHER, MEDICAID ==
[~2018-07-30] VITALS: Ht 172.7 cm; Wt 90.7 kg
[2018-07-30 23:30] VITALS: BP 126/77
--- NOTE | 2018-07-31 00:02 | NUR ---
PT TAKEN TO BED 12
--- NOTE | 2018-07-31 00:26 | NUR ---
32/M c/o abdominal pain starting today. Pt also c/o N/V/D today. No active vomiting noted. Pt states diarrhea started today. Pt AOX4, abd soft, non tender, active bowel sounds x 4 quadrants.
--- NOTE | 2018-07-31 01:28 | NUR ---
DR WARREN AT BEDSIDE.
[2018-07-31] MEDS ORDERED: NACL 0.9% 1,000 ML IV ONE (02:15)
[2018-07-31] MEDS ORDERED: DICYCLOMINE HCL LIQUID 10 MG/5 ML UDC PO ONE (02:15)
[2018-07-31] MEDS ORDERED: KETOROLAC 30 MG/ML VIAL IVP ONE (02:15)
[2018-07-31 02:27] LABS: BASOPHILS % (AUTO) 0.6 % (0.0-2.0); EOSINOPHILS # (AUTO) 0.1 K/uL (0-0.4); EOSINOPHILS % (AUTO) 1.4 % (0.0-4.0); HEMATOCRIT 43.6 % (36-52); HEMOGLOBIN 14.6 g/dL (12.0-18.0); LYMPHOCYTES # (AUTO) 1.7 K/uL (2.0-11.5); LYMPHOCYTES % (AUTO) 32.9 % (20.5-51.1); MEAN CORPUSCULAR HEMOGLOBIN 31 pg (27-31); MEAN CORPUSCULAR HGB CONC 34 g/dL (33-37); MEAN CORPUSCULAR VOLUME 93.6 fL (80-94); MONOCYTES # (AUTO) 0.3 K/uL (0.8-1.0); MONOCYTES % (AUTO) 6.1 % (1.7-9.3); NEUTROPHILS # (AUTO) 3.1 K/uL (1.8-7.7); PLATELET COUNT (AUTO) 212 K/uL (140-450); RED BLOOD CELL COUNT(AUTO) 4.65 MIL/uL (4.20-6.10); RED CELL DISTRIBUTION WIDTH 14.3 % (11.6-13.7); WHITE BLOOD COUNT (AUTO) 5.2 K/uL (4.8-10.8)
[2018-07-31 02:37] LABS: ANION GAP 16.6 (8-16); CARBON DIOXIDE 23.5 mmol/L (21-32); POTASSIUM 4.1 mmol/L (3.5-5.1)
[2018-07-31 02:43] LABS: ALBUMIN 3.6 g/dL (3.4-5.0); TOTAL BILIRUBIN 0.3 mg/dL (0.0-1.0)
[2018-07-31 03:05] VITALS: BP 132/82
--- NOTE | 2018-07-31 03:05 | NUR ---
Patient discharged with v/s stable. Written and verbal after care instructions given and explained. Patient alert, oriented and verbalized understanding of instructions. Ambulatory with steady gait. All questions addressed prior to discharge. ID band removed. Patient advised to follow up with PMD. Rx of BENTYL given. Patient educated on indication of medication including possible reaction and side effects. Opportunity to ask questions provided and answered.
== END 2018-07-31 03:05 | disposition home or self-care (01) ==
LOC: MED 23:18
DX: A08.4 Viral intestinal infection, unspecified (principal); Z91.013 Allergy to seafood; Z88.8 Allergy status to other drugs, medicaments and biological substances
CPT/HCPCS: 36415; 80053; 83690; 85025; 96361; 96374; 99283; J1885; J7030

== ENCOUNTER 2018-08-01 14:26 | Emergency (ER) | payer OTHER, MEDICAID ==
[~2018-08-01] VITALS: Ht 170.2 cm; Wt 91.7 kg
--- NOTE | 2018-08-01 14:33 | NUR ---
PT TO ER BED 4
--- NOTE | 2018-08-01 14:35 | NUR ---
PATIENT PRESENTS TO ED WITH C/O SOB AND NON RADIATING MID CHEST PAIN 7/10 X THIS MORNING. DENIES N/V. LUNGS CLEAR BL; NO ACCESSORY MUSCLE USE 96% ON RA. PATIENT STATES PAIN OF 7/10 AT THIS TIME; VSS; PATIENT POSITIONED FOR COMFORT; HOB ELEVATED; BEDRAILS UP X1; BED DOWN. PENDING ER MD EVALUATION.
[2018-08-01 14:36] VITALS: BP 147/76
--- NOTE | 2018-08-01 14:42 | NUR ---
vss. pt resting comfortably in bed. Respirations even and unlabored. Denies any pain at this time.
--- NOTE | 2018-08-01 15:00 | NUR ---
Patient given written and verbal discharge instructions and verbalizes understanding. Patient is awake, alert and oriented. Ambulatory with steady gait. Given list of available shelters in surrounding areas. Food bag given. Bus pass provided.
[2018-08-01 15:08] VITALS: BP 127/86
== END 2018-08-01 15:00 | disposition home or self-care (01) ==
LOC: MED 14:26
DX: J30.9 Allergic rhinitis, unspecified (principal); J45.909 Unspecified asthma, uncomplicated; Z76.0 Encounter for issue of repeat prescription; Z88.8 Allergy status to other drugs, medicaments and biological substances; Z91.013 Allergy to seafood
CPT/HCPCS: 99283

== ENCOUNTER 2018-08-02 18:26 | Emergency (ER) | payer OTHER, MEDICAID ==
--- NOTE | 2018-08-02 18:45 | NUR ---
PATIENT LEFT WITHOUT BEING SEEN BY DR. AGEE. PT CALLED AT 18:45, 18:55, AND 19:05 NO FURTHER CARE PROVIDED FOR PATIENT.
== END 2018-08-02 18:55 | disposition left against medical advice (07) ==
LOC: MED 18:26
DX: R06.02 Shortness of breath (principal); R07.89 Other chest pain; Z53.21 Procedure and treatment not carried out due to patient leaving prior to being seen by health care provider

== ENCOUNTER 2018-08-02 19:42 | Emergency (ER) | payer OTHER, MEDICAID ==
[~2018-08-02] VITALS: Ht 172.7 cm; Wt 90.7 kg
[2018-08-02 19:54] VITALS: BP 144/87
--- NOTE | 2018-08-02 19:56 | NUR ---
PT AMBULATED TO LOBBY.
--- NOTE | 2018-08-02 20:16 | NUR ---
PATIENT LEFT WITHOUT BEING SEEN BY DR. RAMIREZ. NO FURTHER CARE PROVIDED FOR PATIENT.
== END 2018-08-02 20:17 | disposition left against medical advice (07) ==
LOC: MED 19:42
DX: R07.1 Chest pain on breathing (principal); Z76.0 Encounter for issue of repeat prescription; Z53.21 Procedure and treatment not carried out due to patient leaving prior to being seen by health care provider

== ENCOUNTER 2018-08-05 04:45 | Emergency (ER) | payer OTHER, MEDICAID ==
[~2018-08-05] VITALS: Ht 175.3 cm; Wt 90.7 kg
[2018-08-05 04:49] VITALS: BP 111/76
--- NOTE | 2018-08-05 04:49 | NUR ---
to bed # 12 ambulatory
--- NOTE | 2018-08-05 04:50 | NUR ---
32 YO MALE COMES TO ED FOR C/O BILAT FLANK PAIN. PT STATES PAIN IS 10/10 RADIATING TO ELBOWS. PT DENIES FEVER CHILLS. PT IRRITABLE STATES, "READ MY ID BAND THAT IS MY NAME, ISN'T THAT WHAT YOU GET PAID FOR?" PT VOIDING, STATES PAIN UPON URINATION WELL. LUNGS CLEAR EVEN UNLABORED, ABD SOFT NON DISTENDED. PT DENIES N/V/D. SKIN WARM DRY INTACT. NO OTHER S/S OF DISTRESS NOTED. WILL CONTINUE TO OBSERVE. ALLERGY: SHELLFISH Addendum: 08/05/18 at 0558 by MNGEMMAUT DRESSING TO R FOREARM NOTED, X3 STITCHES IN PLACE SEROSANG DRAINAGE NOTED.
--- NOTE | 2018-08-05 05:33 | NUR ---
Dr. De Leon evaluating patient at bedside.
[2018-08-05] MEDS ORDERED: IBUPROFEN 800 MG TAB PO ONE (05:40)
[2018-08-05] MEDS ORDERED: NACL 0.9% 1,000 ML IV SCH (05:48)
[2018-08-05] MEDS ORDERED: KETOROLAC 30 MG/ML VIAL IVP ONE (05:50)
--- NOTE | 2018-08-05 05:58 | NUR ---
Labs drawn and walked down to lab.
[2018-08-05 06:04] LABS: BASOPHILS % (AUTO) 0.4 % (0.0-2.0); EOSINOPHILS % (AUTO) 0.2 % (0.0-4.0); HEMATOCRIT 41.5 % (36-52); HEMOGLOBIN 13.8 g/dL (12.0-18.0); LYMPHOCYTES # (AUTO) 1.4 K/uL (2.0-11.5); LYMPHOCYTES % (AUTO) 19.2 % (20.5-51.1); MEAN CORPUSCULAR HEMOGLOBIN 31 pg (27-31); MEAN CORPUSCULAR HGB CONC 33 g/dL (33-37); MEAN CORPUSCULAR VOLUME 93.6 fL (80-94); MONOCYTES # (AUTO) 0.4 K/uL (0.8-1.0); MONOCYTES % (AUTO) 6.2 % (1.7-9.3); NEUTROPHILS # (AUTO) 5.3 K/uL (1.8-7.7); PLATELET COUNT (AUTO) 184 K/uL (140-450); RED BLOOD CELL COUNT(AUTO) 4.43 MIL/uL (4.20-6.10); RED CELL DISTRIBUTION WIDTH 14.3 % (11.6-13.7); WHITE BLOOD COUNT (AUTO) 7.2 K/uL (4.8-10.8)
--- NOTE | 2018-08-05 06:09 | NUR ---
PT TAKEN TO CT
--- NOTE | 2018-08-05 06:09 | NUR ---
Sim husain in [facility] - 08/05/18 at 0609 by GABRIELLA PT TAKEN TO BED 12
[2018-08-05 06:14] LABS: CARBON DIOXIDE 26.1 mmol/L (21-32); POTASSIUM 4.1 mmol/L (3.5-5.1)
[2018-08-05 06:19] LABS: TOTAL BILIRUBIN 0.6 mg/dL (0.0-1.0)
--- NOTE | 2018-08-05 06:19 | NUR ---
PT RETURN FROM CT
[2018-08-05 07:12] VITALS: BP 132/68
== END 2018-08-05 07:18 | disposition home or self-care (01) ==
LOC: MED 04:45
DX: S30.1XXA Contusion of abdominal wall, initial encounter (principal); J45.909 Unspecified asthma, uncomplicated; Z88.8 Allergy status to other drugs, medicaments and biological substances; Z91.013 Allergy to seafood; V03.99XA Pedestrian with other conveyance injured in collision with car, pick-up truck or van, unspecified whether traffic or nontraffic accident, initial encounter; Y93.89 Activity, other specified; Y92.89 Other specified places as the place of occurrence of the external cause; Y99.8 Other external cause status
CPT/HCPCS: 36415; 74176; 80053; 83690; 85025; 96374; 99284; J1885; J7030

== ENCOUNTER 2018-08-06 07:17 | Emergency (ER) | payer OTHER, MEDICAID ==
[~2018-08-06] VITALS: Ht 175.3 cm; Wt 91.6 kg
[2018-08-06 07:23] VITALS: BP 135/87
--- NOTE | 2018-08-06 07:58 | NUR ---
pt stating left forearm lac repair wants cleaned; pruritus also left hip/ llq ecchymosis has not noticed at time of incident denies blood in stool
[2018-08-06 08:30] VITALS: BP 135/87
--- NOTE | 2018-08-06 08:30 | NUR ---
Patient discharged with v/s stable. Written and verbal after care instructions given and explained. Patient alert, oriented and verbalized understanding of instructions. Ambulatory with steady gait. All questions addressed prior to discharge. ID band removed. Patient advised to follow up with PMD. Rx of BACITRACIN OINTMENT given. Patient educated on indication of medication including possible reaction and side effects. Opportunity to ask questions provided and answered. PT ADMITS WILL F/U WITH [facility] FOR SUTURE REMOVAL; REQUESTED BUS PASS--HOUSE SUP NOTIFIED
== END 2018-08-06 08:30 | disposition home or self-care (01) ==
LOC: MED 07:17
DX: S50.812A Abrasion of left forearm, initial encounter (principal); J45.909 Unspecified asthma, uncomplicated; Z88.8 Allergy status to other drugs, medicaments and biological substances; Z91.013 Allergy to seafood; V89.2XXA Person injured in unspecified motor-vehicle accident, traffic, initial encounter; Y93.89 Activity, other specified; Y92.89 Other specified places as the place of occurrence of the external cause; Y99.8 Other external cause status
CPT/HCPCS: 99283

== ENCOUNTER 2018-08-08 07:00 | Emergency (ER) | payer OTHER, MEDICAID ==
[~2018-08-08] VITALS: Ht 175.3 cm; Wt 91.6 kg
[2018-08-08 07:09] VITALS: BP 148/88
--- NOTE | 2018-08-08 07:14 | NUR ---
PT AMBULATED TO ED BED 04
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
[2018-08-08] MEDS ORDERED: BACITRACIN OINT 500 UNITS/GM PKT TP ONE (07:50)
--- NOTE | 2018-08-08 08:11 | NUR ---
PT'S WOUND HAS BEEN CLEANED AND PLACED BACITRACIN OINTMENT ON WITH NON-ADHERENT PADS COVERED.
[2018-08-08 08:13] VITALS: BP 135/78
--- NOTE | 2018-08-08 08:14 | NUR ---
Patient discharged with v/s stable. Written and verbal after care instructions given and explained. Patient verbalized understanding. Ambulatory with steady gait. All questions addressed prior to discharge.
== END 2018-08-08 08:14 | disposition home or self-care (01) ==
LOC: MED 07:00
DX: S51.812A Laceration without foreign body of left forearm, initial encounter (principal); S30.1XXA Contusion of abdominal wall, initial encounter; J45.909 Unspecified asthma, uncomplicated; Z91.013 Allergy to seafood; Z88.8 Allergy status to other drugs, medicaments and biological substances; V03.99XA Pedestrian with other conveyance injured in collision with car, pick-up truck or van, unspecified whether traffic or nontraffic accident, initial encounter; Y93.89 Activity, other specified; Y92.89 Other specified places as the place of occurrence of the external cause; Y99.8 Other external cause status
CPT/HCPCS: 99283

== ENCOUNTER 2018-08-11 05:02 | Emergency (ER) | payer OTHER, MEDICAID ==
[~2018-08-11] VITALS: Ht 175.3 cm; Wt 91.6 kg
[2018-08-11 05:03] VITALS: BP 132/78
--- NOTE | 2018-08-11 05:03 | NUR ---
TO BED # 09 AMBULATORY
--- NOTE | 2018-08-11 05:05 | NUR ---
PT BIB SELF C/O LEFT INNER ARM WOUND. PT STATES HE NEEDS A DRESSING CHANGED. --CLEAR GREEN DISCHARGE, MILD REDNESS AND PINK, NO SWELLING. STRONG RADIAL PULSES WNL BL. CAP REFIL <2. PT IN BED; POSITIONED FOR COMFORT. PENDING ER MD FUNK.
[2018-08-11] MEDS ORDERED: BACITRACIN OINT 500 UNITS/GM PKT TP ONE (05:40)
--- NOTE | 2018-08-11 06:00 | NUR ---
WOUND DRESSING TO LEFT INNER FOREARM, TOPICAL BACITRACIN, NON-ADHERENT PAD, GAUZE ROLL, AND ROOPA WARPPING. STRONG RADIAL PULSES WNL BL. PT STATES "IT FEELS CLEAN". +AROM.
[2018-08-11 06:05] VITALS: BP 142/65
--- NOTE | 2018-08-11 06:05 | NUR ---
Patient discharged with v/s stable. Patient states he is ready to go home now, states 0/10 pain to left arm after dressing was applied. Written and verbal after care instructions given and explained. Patient alert, oriented and verbalized understanding of instructions. Ambulatory with steady gait. All questions addressed prior to discharge. ID band removed. Patient advised to follow up with PMD. Rx of Tylenol with Codeine given. Patient educated on indication of medication including possible reaction and side effects. Opportunity to ask questions provided and answered.
== END 2018-08-11 06:05 | disposition home or self-care (01) ==
LOC: MED 05:02
DX: S51.802D Unspecified open wound of left forearm, subsequent encounter (principal); R10.9 Unspecified abdominal pain; Z91.013 Allergy to seafood; Z88.8 Allergy status to other drugs, medicaments and biological substances; X58.XXXD Exposure to other specified factors, subsequent encounter
CPT/HCPCS: 99283

== ENCOUNTER 2018-08-11 20:01 | Emergency (ER) | payer OTHER, MEDICAID ==
[~2018-08-11] VITALS: Ht 175.3 cm; Wt 90.7 kg
[2018-08-11 20:05] VITALS: BP 144/65
--- NOTE | 2018-08-11 20:05 | NUR ---
TO BED # 01 AMBULATORY
[2018-08-11 21:30] VITALS: BP 138/66
== END 2018-08-11 21:30 | disposition home or self-care (01) ==
LOC: MED 20:01
DX: S51.812D Laceration without foreign body of left forearm, subsequent encounter (principal); Z91.013 Allergy to seafood; Z88.8 Allergy status to other drugs, medicaments and biological substances; X58.XXXD Exposure to other specified factors, subsequent encounter
CPT/HCPCS: 99281

== ENCOUNTER 2018-08-15 02:10 | Emergency (ER) | payer OTHER, MEDICAID ==
[~2018-08-15] VITALS: Ht 175.3 cm; Wt 89.8 kg
[2018-08-15 02:22] VITALS: BP 127/78
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
--- NOTE | 2018-08-15 02:43 | NUR ---
X-Ray at bedside.
[2018-08-15] MEDS ORDERED: PANTOPRAZOLE 40 MG TABEC PO ONE (02:45)
[2018-08-15] MEDS ORDERED: IBUPROFEN 600 MG TAB PO ONE (03:20)
--- NOTE | 2018-08-15 03:46 | NUR ---
US AT BEDSIDE.
--- NOTE | 2018-08-15 04:20 | NUR ---
Patient discharged with v/s stable. Patient states he feels ready to go home, and pain is 2/10 at this time; states coping. Written and verbal after care instructions given and explained. Patient alert, oriented and verbalized understanding of instructions. Ambulatory with steady gait. All questions addressed prior to discharge. ID band removed. Patient advised to follow up with PMD. Rx of Prilosec, and Tylenol given. Patient educated on indication of medication including possible reaction and side effects. Opportunity to ask questions provided and answered.
[2018-08-15 04:22] VITALS: BP 134/69
== END 2018-08-15 04:20 | disposition home or self-care (01) ==
LOC: MED 02:10
DX: K21.9 Gastro-esophageal reflux disease without esophagitis (principal); R05 Cough; M25.532 Pain in left wrist; Z59.0 Homelessness; Z91.013 Allergy to seafood; Z88.8 Allergy status to other drugs, medicaments and biological substances
CPT/HCPCS: 71045; 73110; 93971; 99284; Q0092

== ENCOUNTER 2018-08-15 22:37 | Emergency (ER) | payer OTHER, MEDICAID ==
--- NOTE | 2018-08-15 23:10 | NUR ---
PATIENT LEFT WITHOUT BEING SEEN BY DR. RAE. NO FURTHER CARE PROVIDED FOR PATIENT.
== END 2018-08-15 23:09 | disposition left against medical advice (07) ==
LOC: MED 22:37
DX: Z53.21 Procedure and treatment not carried out due to patient leaving prior to being seen by health care provider (principal)

== ENCOUNTER 2018-08-29 21:36 | Emergency (ER) | payer OTHER, MEDICAID ==
[~2018-08-29] VITALS: Ht 175.3 cm; Wt 88.5 kg
[2018-08-29 21:40] VITALS: BP 152/76
--- NOTE | 2018-08-29 21:45 | NUR ---
PT AMBULATED W/ STEADY GAIT TO CHAIR D.
[2018-08-29] MEDS ORDERED: BACITRACIN OINT 500 UNITS/GM PKT TP ONE (21:55)
--- NOTE | 2018-08-29 22:08 | NUR ---
pts wound was covered on bacitracin then a non adherent gauze pad was placed on pts wound roll gauze was placed to wrap wound
--- NOTE | 2018-08-29 22:14 | NUR ---
Patient discharged with v/s stable. Written and verbal after care instructions given and explained. Patient alert, oriented and verbalized understanding of instructions. Ambulatory with steady gait. All questions addressed prior to discharge. ID band removed. Patient advised to follow up with PMD. Rx of BACITRACIN given. Patient educated on indication of medication including possible reaction and side effects. Opportunity to ask questions provided and answered. PT PROVIDED WITH SANDWICH, BUS PASS AND NOTE TO BE CLEARED FOR WORK PER PT REQUEST.
[2018-08-29 22:17] VITALS: BP 145/75
== END 2018-08-29 22:17 | disposition home or self-care (01) ==
LOC: MED 21:36
DX: R23.4 Changes in skin texture (principal); Z91.013 Allergy to seafood; Z88.8 Allergy status to other drugs, medicaments and biological substances
CPT/HCPCS: 99283

== ENCOUNTER 2018-09-01 22:16 | Emergency (ER) | payer OTHER, MEDICAID ==
[~2018-09-01] VITALS: Ht 175.3 cm; Wt 90.7 kg
[2018-09-01 22:20] VITALS: BP 106/69
--- NOTE | 2018-09-01 22:22 | NUR ---
TO LOBBY A/W BED AMBULATORY
--- NOTE | 2018-09-01 22:53 | NUR ---
PT PRESENTS TO ED REQUESTING A DRESSING TO HEALING LEFT ARM ABRASION. PT STATES "I JUST STARTED A JOB, IT'S INDUSTRIAL WITH A LOT OF DUST AND I THINK THE BANDAGE HELPS ME SO I DON'T GET AN INFECTION." PT HAS NO OTHER MEDICAL COMPLAINTS AT THIS TIME. DENIES PAIN.
--- NOTE | 2018-09-01 23:00 | NUR ---
Dr. Hernandez examining patient.
[2018-09-01 23:04] VITALS: BP 106/69
--- NOTE | 2018-09-01 23:04 | NUR ---
Patient discharged by Dr. Hernandez with v/s stable. Written and verbal after care instructions given and explained by Dr. Hernandez. Ambulatory with steady gait.
== END 2018-09-01 23:04 | disposition home or self-care (01) ==
LOC: MED 22:16
DX: S50.312D Abrasion of left elbow, subsequent encounter (principal); V03.90XD Pedestrian on foot injured in collision with car, pick-up truck or van, unspecified whether traffic or nontraffic accident, subsequent encounter; Z91.013 Allergy to seafood; Z88.8 Allergy status to other drugs, medicaments and biological substances
CPT/HCPCS: 99281

== ENCOUNTER 2018-09-02 21:54 | Emergency (ER) | payer OTHER, MEDICAID ==
[~2018-09-02] VITALS: Ht 175.3 cm; Wt 90.7 kg
[2018-09-02 22:06] VITALS: BP 125/67
--- NOTE | 2018-09-02 22:06 | NUR ---
TO BED # 07 AMBULATORY
--- NOTE | 2018-09-02 22:15 | NUR ---
PT VERBALLY DISCHARGED FROM BED [address] URIAS. PT WAS VERBALLY COMBATIVE TOWARD PATIENTS IN ADJACENT ROOMS. HE WAS INSTRUCTED TO LEAVE ER. PT WALKED TO LOBBY AND TOOK FOOD FROM ANOTHER PT THAT WAS LEAVING. PD CALLED. NO FURTHER TREATMENT.
== END 2018-09-02 22:15 | disposition home or self-care (01) ==
LOC: MED 21:54
DX: R10.9 Unspecified abdominal pain (principal); M79.602 Pain in left arm; Z53.21 Procedure and treatment not carried out due to patient leaving prior to being seen by health care provider; V03.99XA Pedestrian with other conveyance injured in collision with car, pick-up truck or van, unspecified whether traffic or nontraffic accident, initial encounter; Y93.89 Activity, other specified; Y92.89 Other specified places as the place of occurrence of the external cause; Y99.8 Other external cause status
CPT/HCPCS: 99281

== ENCOUNTER 2018-09-16 22:27 | Emergency (ER) | payer OTHER, MEDICAID ==
[~2018-09-16] VITALS: Ht 175.3 cm; Wt 90.7 kg
[2018-09-16 22:39] VITALS: BP 121/81
--- NOTE | 2018-09-16 22:39 | NUR ---
TO CHAIR E AMBULATORY
--- NOTE | 2018-09-16 22:55 | NUR ---
Dr. Hicks examining patient.
--- NOTE | 2018-09-16 22:55 | NUR ---
PT BIB SELF C/O "SEIZURE IN MY SLEEP A LONG TIME AGO AND NOW I FEEL SLEEPY". PT IS AWAKE AND ALERT X4, NO OBVIOUS SIGNS OF TRAUMA, PERRL. PT SITTING IN CHAIR, VSS, ER MD AWARE OF PT STATUS.
--- NOTE | 2018-09-16 23:00 | NUR ---
PT STANDING UP AND DANCING, AWAKE AND ALERT.
[2018-09-16 23:12] VITALS: BP 121/81
--- NOTE | 2018-09-16 23:12 | NUR ---
Patient discharged with v/s stable. Written and verbal after care instructions given and explained. Patient verbalized understanding. Ambulatory with steady gait. All questions addressed prior to discharge. Advised to follow up with PMD. PROVIDED WITH PSYCHIATRIC AND PCP FOLLOW UP.
== END 2018-09-16 23:12 | disposition home or self-care (01) ==
LOC: MED 22:27
DX: R56.9 Unspecified convulsions (principal); F12.10 Cannabis abuse, uncomplicated; Z91.013 Allergy to seafood; Z88.8 Allergy status to other drugs, medicaments and biological substances
CPT/HCPCS: 99281

== ENCOUNTER 2018-09-21 01:47 | Emergency (ER) | payer OTHER, MEDICAID ==
--- NOTE | 2018-09-21 02:14 | NUR ---
NO ANSWER FOR SRINIVASAN AT 0214.
--- NOTE | 2018-09-21 02:50 | NUR ---
PATIENT LEFT WITHOUT BEING SEEN BY DR. DYER. CALLED X3. NO RESPONSE. NO FURTHER CARE PROVIDED FOR PATIENT.
== END 2018-09-21 02:50 | disposition left against medical advice (07) ==
LOC: MED 01:47
DX: R10.9 Unspecified abdominal pain (principal); Z53.21 Procedure and treatment not carried out due to patient leaving prior to being seen by health care provider

== ENCOUNTER 2018-09-24 22:58 | Emergency (ER) | payer OTHER, MEDICAID ==
[~2018-09-24] VITALS: Ht 175.3 cm; Wt 90.7 kg
[2018-09-24 23:19] VITALS: BP 126/80
--- NOTE | 2018-09-24 23:24 | NUR ---
PT WAS SEEN LEAVING THE PREMESIS AT THIS TIME. PATIENT LEFT WITHOUT BEING SEEN BY DR. RAE. NO FURTHER CARE PROVIDED FOR PATIENT.
== END 2018-09-24 23:24 | disposition left against medical advice (07) ==
LOC: MED 22:58
DX: R07.9 Chest pain, unspecified (principal); Z53.21 Procedure and treatment not carried out due to patient leaving prior to being seen by health care provider
CPT/HCPCS: 71045; 99281; Q0092

== ENCOUNTER 2018-09-24 23:55 | Emergency (ER) | payer OTHER, MEDICAID ==
[~2018-09-24] VITALS: Ht 175.3 cm; Wt 90.7 kg
[2018-09-25 00:01] VITALS: BP 133/56
--- NOTE | 2018-09-25 00:59 | NUR ---
PT AMBULATED TO BED 9
--- NOTE | 2018-09-25 01:00 | NUR ---
ASSUMED CARE OF PT AT THIS TIME. C/O SUB-STERNAL, NON-RADIATING CP X 12 DAYS. NO RESPIRATORY DISTRESS NOTED...PT EATING A MEAL AT THIS TIME. AAOX4 WITH EVEN AND STEADY GAIT; PATIENT STATES PAIN OF 9/10; VSS; PATIENT POSITIONED FOR COMFORT; HOB ELEVATED; BEDRAILS UP X2; BED DOWN. ER MD MADE AWARE OF PT STATUS. WILL CONTINUE TO MONITOR.
[2018-09-25] MEDS ORDERED: IBUPROFEN 800 MG TAB PO ONE (01:25)
[2018-09-25 02:30] VITALS: BP 132/56
== END 2018-09-25 02:29 | disposition home or self-care (01) ==
LOC: MED 23:55
DX: R07.89 Other chest pain (principal); Z88.8 Allergy status to other drugs, medicaments and biological substances; Z91.013 Allergy to seafood
CPT/HCPCS: 71045; 99283; Q0092

== ENCOUNTER 2018-09-26 03:03 | Emergency (ER) | payer OTHER, MEDICAID ==
[~2018-09-26] VITALS: Ht 170.2 cm; Wt 99.8 kg
[2018-09-26 03:08] VITALS: BP 120/67
--- NOTE | 2018-09-26 03:13 | NUR ---
PT PRESENTS W/C/O "I CAN'T BREATH." PT SPEAKING IN FULL SENTENCES. NAD NOTED. RR EVEN/UNLABORED. LUNGS CLEAR BILAT. SKIN WARM AND DRY TO TOUCH. PT STATES HE DID NOT FILL RX HE GOT EARLIER. PT AMBULATORY. NO ACCESSORRY MUSCLE USE. DR. ALEXIS ASSESSED PT. ALL NEEDS MET AT THIS TIME.
[2018-09-26 03:15] VITALS: BP 120/67
--- NOTE | 2018-09-26 03:15 | NUR ---
Patient discharged with v/s stable. Written and verbal after care instructions given and explained. Patient alert, oriented and verbalized understanding of instructions. Ambulatory with steady gait. All questions addressed prior to discharge. ID band removed. Patient advised to follow up with PMD. Rx of FLONASE given. Patient educated on indication of medication including possible reaction and side effects. Opportunity to ask questions provided and answered.
== END 2018-09-26 03:15 | disposition home or self-care (01) ==
LOC: MED 03:03
DX: J30.9 Allergic rhinitis, unspecified (principal); R07.89 Other chest pain; Z91.013 Allergy to seafood; Z88.8 Allergy status to other drugs, medicaments and biological substances
CPT/HCPCS: 99283

== ENCOUNTER 2018-09-30 21:50 | Emergency (ER) | payer OTHER, MEDICAID ==
[~2018-09-30] VITALS: Ht 175.3 cm; Wt 88.5 kg
[2018-09-30 21:52] VITALS: BP 125/77
--- NOTE | 2018-09-30 21:55 | NUR ---
TO LOBBY A/W BED, AMBULATORY
--- NOTE | 2018-09-30 22:03 | NUR ---
PT RETURN FROM [facility] TO IZZY HARKINS
--- NOTE | 2018-09-30 22:24 | NUR ---
PT TAKEN TO CHAIR E
--- NOTE | 2018-09-30 22:25 | NUR ---
ASSUMED CARE OF PT AT THIS TIME. C/O DIFFICULTY BREATHING X 2 DAYS. NO RESPIRATORY DISTRESS NOTED AT THIS TIME...PT SPEAKS IN FULL SENTENCES. AAOX4 WITH EVEN AND STEADY GAIT; PATIENT STATES PAIN OF 0/10; VSS; PATIENT POSITIONED FOR COMFORT; HOB ELEVATED; BEDRAILS UP X2; BED DOWN. ER MD MADE AWARE OF PT STATUS. WILL CONTINUE TO MONITOR.
[2018-09-30 22:35] VITALS: BP 125/77
== END 2018-09-30 22:35 | disposition home or self-care (01) ==
LOC: MED 21:50
DX: R06.02 Shortness of breath (principal); J45.909 Unspecified asthma, uncomplicated; Z76.0 Encounter for issue of repeat prescription; Z91.013 Allergy to seafood; Z88.8 Allergy status to other drugs, medicaments and biological substances
CPT/HCPCS: 71046; 99283

== ENCOUNTER 2018-10-01 23:57 | Emergency (ER) | payer OTHER, MEDICAID ==
[~2018-10-01] VITALS: Ht 175.3 cm; Wt 88.5 kg
--- NOTE | 2018-10-01 23:57 | NUR ---
PT WAS AGITATED AND YELLING IN THE LOBBY, DISTURBING PEOPLE IN THE LOBBY, WHEN STAFF TRIED TO TALK TO HIM, PT BECAME UPSET, USING [place] AND THREATENING THEM. PT'S AGITATION INCREASED AND LEFT OUT THE BUILDING. PT REFUSED TO TALK TO ANY FURTHER PERSONAL AT THIS TIME. SECURITY WAS NOTIFIED.
[2018-10-02 00:15] VITALS: BP 132/72
--- NOTE | 2018-10-02 00:22 | NUR ---
PT TRIAGED, SENT BACK TO LOBBY AWAITING BED AVAILABILITY. SPOKE TO DR MAE REGARDING PT, NO NEED FOR EKG AT THIS TIME.
[2018-10-02] MEDS ORDERED: DICYCLOMINE HCL LIQUID 20 MG, ALUMINUM HYD/MAG/SIMETHICONE 30 ML, LIDOCAINE VISCOUS 2% ... PO ONE ×3 (00:35)
--- NOTE | 2018-10-02 01:15 | NUR ---
PT CALLED IN TO CHAIR B TO BE GIVEN MEDICATION ORDERED, PT REFUSED MEDICATION UNLESS SEEN BY MD FIRST. EXPLAINED TO PT THAT THIS IS MD ORDER AND PT STARTED YELLING INAPPROPRIATE WORDS TOWARDS STAFF. ASKED TO GO BACK TO LOBBY AND CONTINUED TO YELL. SECURITY CALLED AT THIS TIME.
--- NOTE | 2018-10-02 01:30 | NUR ---
PATIENT LEFT WITHOUT BEING SEEN BY DR. MAE. NO FURTHER CARE PROVIDED FOR PATIENT.
--- NOTE | 2018-10-02 01:34 | NUR ---
Sim husain in [facility] - 10/02/18 at 0143 by [email or web address] SILVINO BARRON REQUEST A BUS PASS, TURNER OFF MADE AWARE
== END 2018-10-01 23:59 | disposition left against medical advice (07) ==
LOC: MED 23:57
DX: R10.13 Epigastric pain (principal); Z53.21 Procedure and treatment not carried out due to patient leaving prior to being seen by health care provider

== ENCOUNTER 2018-10-02 20:31 | Emergency (ER) | payer OTHER, MEDICAID ==
[~2018-10-02] VITALS: Ht 170.2 cm; Wt 81.6 kg
[2018-10-02 20:35] VITALS: BP 134/82
--- NOTE | 2018-10-02 20:35 | NUR ---
PATIENT TRIAGED AT THIS TIME. PT KEPT IN TRIAGE PER ER MD AND LINING SETTER.
--- NOTE | 2018-10-02 20:36 | NUR ---
DR. URIAS EVALUATING PATIENT.
[2018-10-02 20:40] VITALS: BP 134/82
--- NOTE | 2018-10-02 20:40 | NUR ---
PT IS A 32 Y/O MALE WHO PRESENTS TO THE ED C/O ATYPICAL CHEST PAIN. PER PATIENT SYMPTOMS STARTED X1 DAY TODAY. .PT REPORTS 10/10 ACHING PAIN WITH HICCUPS THAT DO NOT STOP. PT DENIES SOB, N/V/D. PT AWAKE AND ALERT, RR EVEN/UNLABORED. PT REPOSITIONED FOR COMFORT, PT SITTING IN TRIAGE. ER MD DR. URIAS NOTIFIED. WILL CONTINUE TO MONITOR. DENIES PMH ALLERGIES--IODINE, SHELLFISH
--- NOTE | 2018-10-02 20:45 | NUR ---
PATIENT D/C BY DR. URIAS. GIVEN RX OF PEPCID 20MG. ALL QUESTIONS ADDDRESSED, ID BAND REMOVED. ESCORTED BY SECURITY OUT OF ED.
== END 2018-10-02 20:45 | disposition home or self-care (01) ==
LOC: MED 20:31
DX: R07.89 Other chest pain (principal); K21.9 Gastro-esophageal reflux disease without esophagitis; J45.909 Unspecified asthma, uncomplicated; Z91.013 Allergy to seafood; Z88.8 Allergy status to other drugs, medicaments and biological substances
CPT/HCPCS: 93005; 99283

== ENCOUNTER 2018-11-10 20:37 | Emergency (ER) | payer OTHER, MEDICAID ==
[~2018-11-10] VITALS: Ht 175.3 cm; Wt 83.9 kg
[2018-11-10 21:01] VITALS: BP 124/84
--- NOTE | 2018-11-10 21:05 | NUR ---
PT AMBULATED TO BED 12.
[2018-11-10 21:15] VITALS: BP 115/77
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
--- NOTE | 2018-11-10 22:40 | NUR ---
Dr. Gutiérrez examining patient.
[2018-11-10] MEDS ORDERED: ONDANSETRON 4 MG ODT PO ONE (22:55)
[2018-11-10 23:43] LABS: BASOPHILS % (AUTO) 0.6 % (0.0-2.0); EOSINOPHILS % (AUTO) 0.8 % (0.0-4.0); HEMATOCRIT 44.8 % (36-52); HEMOGLOBIN 14.8 g/dL (12.0-18.0); LYMPHOCYTES # (AUTO) 1.3 K/uL (2.0-11.5); LYMPHOCYTES % (AUTO) 24.3 % (20.5-51.1); MEAN CORPUSCULAR HEMOGLOBIN 31 pg (27-31); MEAN CORPUSCULAR HGB CONC 33 g/dL (33-37); MEAN CORPUSCULAR VOLUME 94.4 fL (80-94); MONOCYTES # (AUTO) 0.4 K/uL (0.8-1.0); MONOCYTES % (AUTO) 7.7 % (1.7-9.3); NEUTROPHILS # (AUTO) 3.6 K/uL (1.8-7.7); NEUTROPHILS % (AUTO) 66.6 % (42.2-75.2); PLATELET COUNT (AUTO) 209 K/uL (140-450); RED BLOOD CELL COUNT(AUTO) 4.75 MIL/uL (4.20-6.10); RED CELL DISTRIBUTION WIDTH 13.6 % (11.6-13.7); WHITE BLOOD COUNT (AUTO) 5.5 K/uL (4.8-10.8)
[2018-11-10 23:44] LABS: ANION GAP 14.3 (8-16); CARBON DIOXIDE 24.4 mmol/L (21-32); CHLORIDE 103 mmol/L (98-107); CREATININE 1.1 mg/dL (0.7-1.3); GFR ARICAN-AMERICAN 99 mL/min (>90); GLUCOSE 97 mg/dL (74-106); POTASSIUM 3.7 mmol/L (3.5-5.1); SODIUM SERUM 138 mmol/L (136-145); UREA NITROGEN, BLOOD 13 mg/dL (7-18)
[2018-11-10 23:50] LABS: ALBUMIN 3.8 g/dL (3.4-5.0); ASPARTATE AMINOTRANSFERASE 22 U/L (15-37); TOTAL BILIRUBIN 0.4 mg/dL (0.0-1.0)
[2018-11-10 23:51] LABS: ACETAMINOPHEN < 0.5 ug/ml (10-30); SALICYLATE < 2.8 mg/dL (2.8-20.0)
--- NOTE | 2018-11-11 01:10 | NUR ---
PATIENT ELOPED FROM FACILITY. DISCHARGE INSTRUCTIONS NOT GIVEN TO PATIENT. DR. LANDA NOTIFIED.
== END 2018-11-11 01:10 | disposition left against medical advice (07) ==
LOC: MED 20:37
DX: T18.9XXA Foreign body of alimentary tract, part unspecified, initial encounter (principal); J45.909 Unspecified asthma, uncomplicated; Z88.8 Allergy status to other drugs, medicaments and biological substances; Z91.013 Allergy to seafood; X58.XXXA Exposure to other specified factors, initial encounter; Y93.89 Activity, other specified; Y92.89 Other specified places as the place of occurrence of the external cause; Y99.8 Other external cause status
CPT/HCPCS: 36415; 74022; 80053; 85025; 93005; 99284; G0480; G0482; Q0162

== ENCOUNTER 2018-11-14 21:51 | Emergency (ER) | payer OTHER, MEDICAID ==
[~2018-11-14] VITALS: Ht 172.7 cm; Wt 83.9 kg
[2018-11-14 22:20] VITALS: BP 136/75
--- NOTE | 2018-11-14 22:24 | NUR ---
PT AMBULATED TO LOBBY. STATES UNBALE TO GIVE URINE AT THIS TIME.
--- NOTE | 2018-11-14 23:25 | NUR ---
CALLED PT FROM LOBBY, NO RESPONSE, LWBS
--- NOTE | 2018-11-14 23:35 | NUR ---
PT CALLED FROM THE LOBBY,NO RESPONSE. LWBS
--- NOTE | 2018-11-14 23:36 | NUR ---
PATIENT LEFT WITHOUT BEING SEEN BY DR. RAE. NO FURTHER CARE PROVIDED FOR PATIENT.
== END 2018-11-14 23:25 | disposition left against medical advice (07) ==
LOC: MED 21:51
DX: F14.90 Cocaine use, unspecified, uncomplicated (principal); Z53.21 Procedure and treatment not carried out due to patient leaving prior to being seen by health care provider

== ENCOUNTER 2018-11-14 23:41 | Emergency (ER) | payer OTHER, MEDICAID ==
[~2018-11-14] VITALS: Ht 172.7 cm; Wt 83.9 kg
[2018-11-14 23:51] VITALS: BP 138/64
--- NOTE | 2018-11-14 23:55 | NUR ---
PT AMBULATED TO LOBBY.
--- NOTE | 2018-11-15 00:44 | NUR ---
Dr. Hicks examining patient.
--- NOTE | 2018-11-15 00:47 | NUR ---
PT C/O CHEST PAIN, DENIES ANY OTHER PAIN. NO RESPIRATORY DISTRESS, VSS. PT LAYING IN BED WITH EYES CLOSED.
--- NOTE | 2018-11-15 01:18 | NUR ---
RECEIVED REPORT FROM BIENVENIDO COVINGTON. PT IN BED RESTING, VSS, NO C/O PAIN AT THIS TIME. WILL CONTINUE TO MONITOR.
[2018-11-15 03:25] VITALS: BP 138/64
== END 2018-11-15 03:25 | disposition home or self-care (01) ==
LOC: MED 23:43
DX: R11.10 Vomiting, unspecified (principal); F15.90 Other stimulant use, unspecified, uncomplicated; J45.909 Unspecified asthma, uncomplicated; Z76.5 Malingerer [conscious simulation]; Z88.8 Allergy status to other drugs, medicaments and biological substances; Z91.013 Allergy to seafood
CPT/HCPCS: 99281

== ENCOUNTER 2018-11-18 23:31 | Emergency (ER) | payer OTHER, MEDICAID ==
[~2018-11-18] VITALS: Ht 172.7 cm; Wt 83.9 kg
[2018-11-18 23:40] VITALS: BP 109/72
--- NOTE | 2018-11-18 23:40 | NUR ---
PT AMBULATED TO BED #1
--- NOTE | 2018-11-18 23:52 | NUR ---
PT DENIES THAT HE IS HAVING GENITAL ITCHING
--- NOTE | 2018-11-18 23:52 | NUR ---
33/M PRESENTS TO ED, C/O BUE ITCHING, X2 DAYS. MINIMAL AMOUNT SMALL PAPULAR BUMPS NOTED ON BUE, WITHOUT ERYTHEMA. PT DENIES PAIN. DENIES FEVER. PT AWAKE AND ALERT, SKIN NORMAL WARM AND DRY, RR EVEN AND UNLABORED. HX ARTHRITIS
--- NOTE | 2018-11-19 00:17 | NUR ---
RECEIVED REPORT FROM BIENVENIDO NO. PT IN BED RESTING, STABLE AT THIS TIME, WILL CONTINEU TO MONITOR.
--- NOTE | 2018-11-19 01:00 | NUR ---
Patient discharged with v/s stable. Written and verbal after care instructions given and explained. Patient alert, oriented and verbalized understanding of instructions. Ambulatory with steady gait. All questions addressed prior to discharge. ID band removed. Patient advised to follow up with PMD. Rx of prednisone and benadryl given. Patient educated on indication of medication including possible reaction and side effects. Opportunity to ask questions provided and answered.
[2018-11-21 06:11] LABS: CHLAMYDIA TRACHOMATIS AMP DNA Negative (Negative)
== END 2018-11-19 01:00 | disposition home or self-care (01) ==
LOC: MED 23:31
DX: R21 Rash and other nonspecific skin eruption (principal); J45.909 Unspecified asthma, uncomplicated; M19.90 Unspecified osteoarthritis, unspecified site; Z88.8 Allergy status to other drugs, medicaments and biological substances; Z91.013 Allergy to seafood
CPT/HCPCS: 36415; 81002; 87491; 99283

== ENCOUNTER 2018-11-22 19:48 | Emergency (ER) | payer OTHER, MEDICAID ==
[~2018-11-22] VITALS: Ht 172.7 cm; Wt 88.0 kg
[2018-11-22 20:04] VITALS: BP 122/80
--- NOTE | 2018-11-22 20:08 | NUR ---
PT AA0X4. VSS
--- NOTE | 2018-11-22 23:42 | NUR ---
PT AMBULATED TO CHAIR B.
--- NOTE | 2018-11-22 23:50 | NUR ---
PT CAME INTO ER WITH C/O NOT BEING ABLE TO SLEEP X 2 NIGHTS. PATIENT STATES "I DONT WANT TO EXPLAIN WHY BECAUSE NO ONE EVER UNDERSTANDS"AND CONTINOUS BODY ACHES. PAIN 7/10 AT THIS TIME. ER MD MADE AWARE OF STATUS. SAFETY MEASURES IN PLACE. PMH- ASTHMA
[2018-11-23] VITALS: BP 122/80
--- NOTE | 2018-11-23 | NUR ---
Patient discharged with v/s stable. Written and verbal after care instructions given and explained. Patient alert, oriented and verbalized understanding of instructions. Ambulatory with steady gait. All questions addressed prior to discharge. ID band removed. Patient advised to follow up with PMD. Rx of DIPHENHYDRAMINE WAS given. Patient educated on indication of medication including possible reaction and side effects. Opportunity to ask questions provided and answered. PT WAS GIVEN INFORMATION/RESOURCES TO FOLLOW UP WITH PER PT REQUEST.
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
--- NOTE | 2018-11-23 00:06 | NUR ---
DAVON BARRON WAS CALLED. IZZY CHAVEZ AND [place] SUPERVSOR MADE AWARE,
--- NOTE | 2018-11-23 00:10 | NUR ---
PT LEFT ER TO DAVON HARKINS IN ROUTE.
== END 2018-11-23 | disposition home or self-care (01) ==
LOC: MED 19:48
DX: G47.00 Insomnia, unspecified (principal); J45.909 Unspecified asthma, uncomplicated; Z91.013 Allergy to seafood; Z88.8 Allergy status to other drugs, medicaments and biological substances
CPT/HCPCS: 99282

== ENCOUNTER 2018-11-25 05:26 | Emergency (ER) | payer OTHER, MEDICAID ==
[~2018-11-25] VITALS: Ht 172.7 cm; Wt 86.2 kg
--- NOTE | 2018-11-25 06:06 | NUR ---
Dr. Hicks examining patient.
--- NOTE | 2018-11-25 06:06 | NUR ---
DR RAE IN TRIAGE WITH PT EVALUATING.
[2018-11-25 06:21] VITALS: BP 124/83
--- NOTE | 2018-11-25 06:21 | NUR ---
51 Y/O MALE PRESENTS TO ED WITH C/O ATYPICAL CP. NON-RADIATING. NO N/V. NO SOB. VSS. DR RAE AT CHAIRSIDE IN TRIAGE EVALUATING.
[2018-11-25 06:30] VITALS: BP 124/83
--- NOTE | 2018-11-25 06:30 | NUR ---
DISCHARGE PAPERS GIVEN TO PT. VSS, NO DISTRESS OF ANY TYPE NOTED. INSTRUCTED TO F/U WITH PCP AND WHEN TO RETURN TO ER. ALL QUESTIONS ANSWERED.
== END 2018-11-25 06:06 | disposition home or self-care (01) ==
LOC: MED 05:26
DX: R07.9 Chest pain, unspecified (principal); J45.909 Unspecified asthma, uncomplicated; F17.210 Nicotine dependence, cigarettes, uncomplicated; Z88.8 Allergy status to other drugs, medicaments and biological substances; Z91.013 Allergy to seafood
CPT/HCPCS: 99281

== ENCOUNTER 2018-12-01 19:28 | Emergency (ER) | payer OTHER, MEDICAID ==
[~2018-12-01] VITALS: Ht 175.3 cm; Wt 89.8 kg
[2018-12-01 19:41] VITALS: BP 147/87
[2018-12-01] MEDS ORDERED: HYDROcodone/APAP 5/325 MG 1 TAB TAB PO ONE (20:00)
[2018-12-01 20:58] VITALS: BP 147/87
== END 2018-12-01 20:58 | disposition home or self-care (01) ==
LOC: MED 19:28
DX: M19.041 Primary osteoarthritis, right hand (principal); M19.042 Primary osteoarthritis, left hand; J45.909 Unspecified asthma, uncomplicated; F17.210 Nicotine dependence, cigarettes, uncomplicated; F12.90 Cannabis use, unspecified, uncomplicated; Z91.013 Allergy to seafood; Z88.8 Allergy status to other drugs, medicaments and biological substances
CPT/HCPCS: 99283

== ENCOUNTER 2018-12-02 03:40 | Emergency (ER) | payer OTHER, MEDICAID ==
[~2018-12-02] VITALS: Ht 175.3 cm; Wt 85.7 kg
[2018-12-02 04:41] VITALS: BP 121/88
[2018-12-02 06:22] VITALS: BP 118/84
== END 2018-12-02 07:05 | disposition left against medical advice (07) ==
LOC: MED 03:40
DX: J02.9 Acute pharyngitis, unspecified (principal); Z53.21 Procedure and treatment not carried out due to patient leaving prior to being seen by health care provider

== ENCOUNTER 2018-12-08 14:47 | Emergency (ER) | payer OTHER, MEDICAID ==
[~2018-12-08] VITALS: Ht 175.3 cm; Wt 83.9 kg
[2018-12-08 14:50] VITALS: BP 105/80
[2018-12-08] MEDS ORDERED: KETOROLAC 60 MG/2 ML VIAL IM ONE (16:10)
[2018-12-08 17:05] VITALS: BP 120/76
== END 2018-12-08 17:05 | disposition home or self-care (01) ==
LOC: MED 14:47
DX: R07.89 Other chest pain (principal); R05 Cough; M79.651 Pain in right thigh; M79.652 Pain in left thigh; J45.909 Unspecified asthma, uncomplicated; F14.10 Cocaine abuse, uncomplicated; F15.10 Other stimulant abuse, uncomplicated; Z88.8 Allergy status to other drugs, medicaments and biological substances; Z91.013 Allergy to seafood
CPT/HCPCS: 96372; 99283; J1885

== ENCOUNTER 2018-12-09 16:31 | Emergency (ER) | payer OTHER, MEDICAID ==
[~2018-12-09] VITALS: Ht 172.7 cm; Wt 86.6 kg
[2018-12-09 16:36] VITALS: BP 102/67
--- NOTE | 2018-12-09 16:40 | NUR ---
PT TAKEN TO CHAIR B.
--- NOTE | 2018-12-09 16:48 | NUR ---
PT WAS SEEN YESTERDAY FOR SAME SYMPTOMS AND WAS PRESCRIBED MOTRIN. PT REQUESTING MUSCLE RELAXERS BECAUSE HE IS HAVING "MUSCLE SPASMS." PT DENIES ANY INJURY OR TRAUMA. C/O BILATERAL LEG PAIN. VSS.
[2018-12-09 16:51] VITALS: BP 102/67
--- NOTE | 2018-12-09 16:51 | NUR ---
PT DISCHARGED BY DR. URIAS AND WAS GIVEN RX OF NAPROSYN 500MG. NO FURHTER CARE PROVIDED.
== END 2018-12-09 16:50 | disposition home or self-care (01) ==
LOC: MED 16:31
DX: M79.661 Pain in right lower leg (principal); M79.662 Pain in left lower leg; J45.909 Unspecified asthma, uncomplicated; F17.210 Nicotine dependence, cigarettes, uncomplicated; Z76.5 Malingerer [conscious simulation]; Z91.013 Allergy to seafood; Z88.8 Allergy status to other drugs, medicaments and biological substances
CPT/HCPCS: 99282

== ENCOUNTER 2018-12-11 21:11 | Emergency (ER) | payer OTHER, MEDICAID ==
[~2018-12-11] VITALS: Ht 175.3 cm; Wt 83.9 kg
[2018-12-11 21:47] VITALS: BP 118/74
--- NOTE | 2018-12-11 21:53 | NUR ---
PT AMBULATES BACK TO LOBBY WITH STEADY GAIT.
--- NOTE | 2018-12-11 22:30 | NUR ---
PT CALLED. NO RESPONSE.
--- NOTE | 2018-12-11 22:45 | NUR ---
PT CALLED. NO RESPONSE.
--- NOTE | 2018-12-11 23:00 | NUR ---
PT CALLED NO RESPONSE. PT LWBS AT 2239
== END 2018-12-11 22:30 | disposition left against medical advice (07) ==
LOC: MED 21:11
DX: M79.674 Pain in right toe(s) (principal); M79.675 Pain in left toe(s); Z53.21 Procedure and treatment not carried out due to patient leaving prior to being seen by health care provider

== ENCOUNTER 2018-12-12 18:38 | Emergency (ER) | payer OTHER, MEDICAID ==
[~2018-12-12] VITALS: Ht 175.3 cm; Wt 83.9 kg
[2018-12-12 18:56] VITALS: BP 134/91
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
--- NOTE | 2018-12-12 19:09 | NUR ---
ENDORSE CARE TO PM SHIFT RN.
[2018-12-12] MEDS ORDERED: DICYCLOMINE HCL LIQUID 20 MG, ALUMINUM HYD/MAG/SIMETHICONE 30 ML, LIDOCAINE VISCOUS 2% ... PO ONE ×3 (19:35)
[2018-12-12] MEDS ORDERED: ONDANSETRON 4 MG ODT PO ONE (19:35)
--- NOTE | 2018-12-12 20:27 | NUR ---
PT MOVED TO CHAIR B
[2018-12-12 20:56] LABS: BASOPHILS % (AUTO) 0.5 % (0.0-2.0); EOSINOPHILS # (AUTO) 0.1 K/uL (0-0.4); EOSINOPHILS % (AUTO) 1.9 % (0.0-4.0); HEMATOCRIT 42.9 % (36-52); HEMOGLOBIN 14.2 g/dL (12.0-18.0); LYMPHOCYTES # (AUTO) 1.8 K/uL (2.0-11.5); LYMPHOCYTES % (AUTO) 26.4 % (20.5-51.1); MEAN CORPUSCULAR HEMOGLOBIN 31 pg (27-31); MEAN CORPUSCULAR HGB CONC 33 g/dL (33-37); MONOCYTES # (AUTO) 0.5 K/uL (0.8-1.0); MONOCYTES % (AUTO) 6.9 % (1.7-9.3); NEUTROPHILS # (AUTO) 4.5 K/uL (1.8-7.7); NEUTROPHILS % (AUTO) 64.3 % (42.2-75.2); PLATELET COUNT (AUTO) 211 K/uL (140-450); RED BLOOD CELL COUNT(AUTO) 4.51 MIL/uL (4.20-6.10); RED CELL DISTRIBUTION WIDTH 14.1 % (11.6-13.7)
[2018-12-12] MEDS ORDERED: ACETAMINOPHEN 325 MG TAB PO ONE (21:15)
[2018-12-12 21:20] LABS: POTASSIUM 3.9 mmol/L (3.5-5.1)
[2018-12-12 21:21] LABS: ALBUMIN 3.7 g/dL (3.4-5.0); ANION GAP 10.8 (8-16); CARBON DIOXIDE 30.1 mmol/L (21-32); CREATININE 0.8 mg/dL (0.7-1.3); TOTAL BILIRUBIN 0.2 mg/dL (0.0-1.0)
[2018-12-12 22:06] VITALS: BP 131/96
--- NOTE | 2018-12-12 22:06 | NUR ---
PT DISCHARGED WITH PAPERWORK. RX GABAPENTIN. EDUCATED PT REGARDING MEDICATIONS AND S/E. EDUCATED PT REGARDING D/C DIAGNOSIS AND INSTRUCTIONS. PT VERBALIZED UNDERSTANDING OF TEACHING. TOLD PT TO FOLLOW UP WITH PCP AND WHEN TO RETURN TO ED. PT VSS. ALL QUESTIONS ANSWERED.
== END 2018-12-12 22:06 | disposition home or self-care (01) ==
LOC: MED 18:38
DX: M79.671 Pain in right foot (principal); M79.672 Pain in left foot; K08.89 Other specified disorders of teeth and supporting structures; R11.0 Nausea; J45.909 Unspecified asthma, uncomplicated; Z91.013 Allergy to seafood; Z88.8 Allergy status to other drugs, medicaments and biological substances
CPT/HCPCS: 36415; 80053; 83690; 85025; 99284; Q0162

== ENCOUNTER 2018-12-15 22:24 | Emergency (ER) | payer OTHER, MEDICAID ==
[~2018-12-15] VITALS: Ht 172.7 cm; Wt 83.9 kg
--- NOTE | 2018-12-15 22:44 | NUR ---
PT WAS CALLED, NO ANSWER, LWBS
[2018-12-15 22:53] VITALS: BP 162/102
--- NOTE | 2018-12-15 22:54 | NUR ---
PT GIVEN CUPS OF WATER AND JUICE.
--- NOTE | 2018-12-15 22:55 | NUR ---
PT TRIAGED, SENT BACK TO LOBBY, AWAITING FOR BED
--- NOTE | 2018-12-15 23:58 | NUR ---
CALLED FOR PT IN ER LOBBY, NO ANSWER IN ER LOBBY, OUTSIDE OF ER LOBBY AND IN ER RESTROOMS.
--- NOTE | 2018-12-16 | NUR ---
PATIENT LEFT WITHOUT BEING SEEN BY DR. RAE. NO FURTHER CARE PROVIDED FOR PATIENT.
--- NOTE | 2018-12-16 | NUR ---
CALLED FOR PT IN ER LOBBY, NO ANSWER IN ER LOBBY, OUTSIDE OF ER LOBBY AND IN ER RESTROOMS.
--- NOTE | 2018-12-16 00:08 | NUR ---
CALLED FOR PT IN ER LOBBY, NO ANSWER IN ER LOBBY, OUTSIDE OF ER LOBBY AND IN ER RESTROOMS.
--- NOTE | 2018-12-16 00:15 | NUR ---
PT CAME BACK TO THE ERMEGENCY DEPARTMENT. ERMD MADE AWARE OF STATUS.
--- NOTE | 2018-12-16 00:20 | NUR ---
PT CAME INTO ER WITH C/O OF DEHYDRATION TODAY.0/10 PAIN LEVEL AT THIS TIME. PT IS A/OX4. ERMD MADE AWARE OF STATUS. SAFETY MEASURES IN PLACE.
[2018-12-16 00:28] VITALS: BP 162/102
--- NOTE | 2018-12-16 00:28 | NUR ---
Patient discharged with v/s stable. Written and verbal after care instructions given and explained. Patient verbalized understanding. Ambulatory with steady gait. All questions addressed prior to discharge. Advised to follow up with PMD. PT WAS EDUCATED TO MAKE SURE TO DRINK PLENTY OF FLUIDS, INCLUDING WATER.
== END 2018-12-16 00:28 | disposition home or self-care (01) ==
LOC: MED 22:24
DX: Z00.00 Encounter for general adult medical examination without abnormal findings (principal); J45.909 Unspecified asthma, uncomplicated; F17.210 Nicotine dependence, cigarettes, uncomplicated; Z88.8 Allergy status to other drugs, medicaments and biological substances; Z91.013 Allergy to seafood
CPT/HCPCS: 99281

== ENCOUNTER 2018-12-17 21:01 | Emergency (ER) | payer OTHER, MEDICAID ==
--- NOTE | 2018-12-17 21:14 | NUR ---
PT CALLED IN LOBBY AND OUTSIDE WITH NO ANSWER.
--- NOTE | 2018-12-17 21:32 | NUR ---
PT CALLED IN LOBBY AND OUTSIDE WITH NO ANSWER.
--- NOTE | 2018-12-17 21:32 | NUR ---
PATIENT LEFT WITHOUT BEING SEEN BY DR. COLBY. NO FURTHER CARE PROVIDED FOR PATIENT.
== END 2018-12-17 21:32 | disposition left against medical advice (07) ==
LOC: MED 21:01
DX: J34.89 Other specified disorders of nose and nasal sinuses (principal); Z53.21 Procedure and treatment not carried out due to patient leaving prior to being seen by health care provider

== ENCOUNTER 2018-12-20 11:08 | Emergency (ER) | payer OTHER, MEDICAID ==
[~2018-12-20] VITALS: Ht 175.3 cm; Wt 90.3 kg
[2018-12-20 11:12] VITALS: BP 131/79
[2018-12-20] MEDS ORDERED: hydrOXYzine HCL 25 MG TAB PO ONE (11:25)
[2018-12-20] MEDS ORDERED: ALBUTEROL SULFATE/IPRATROPIU 3 ML SOL IH ONE (11:25)
[2018-12-20 12:40] VITALS: BP 127/71
== END 2018-12-20 12:40 | disposition home or self-care (01) ==
LOC: MED 11:08
DX: R05 Cough (principal); R11.10 Vomiting, unspecified; F17.210 Nicotine dependence, cigarettes, uncomplicated; F14.90 Cocaine use, unspecified, uncomplicated; F15.90 Other stimulant use, unspecified, uncomplicated; J45.909 Unspecified asthma, uncomplicated; Z59.0 Homelessness; Z91.013 Allergy to seafood; Z88.8 Allergy status to other drugs, medicaments and biological substances
CPT/HCPCS: 71046; 94640; 99283; J7620

== ENCOUNTER 2018-12-22 12:57 | Emergency (ER) | payer OTHER, MEDICAID ==
[~2018-12-22] VITALS: Ht 175.3 cm; Wt 90.7 kg
[2018-12-22 13:07] VITALS: BP 124/88
== END 2018-12-22 13:48 | disposition home or self-care (01) ==
LOC: MED 12:57
DX: R05 Cough (principal); R11.0 Nausea; R68.83 Chills (without fever); Z76.0 Encounter for issue of repeat prescription; Z91.013 Allergy to seafood; Z88.8 Allergy status to other drugs, medicaments and biological substances
CPT/HCPCS: 99281

== ENCOUNTER 2018-12-24 18:51 | Emergency (ER) | payer OTHER, MEDICAID ==
[~2018-12-24] VITALS: Ht 175.3 cm; Wt 90.7 kg
[2018-12-24 19:25] VITALS: BP 140/80
--- NOTE | 2018-12-24 19:35 | NUR ---
PT TRIAGED, SENT BACK TO LOBBY AWAITING FOR BED
--- NOTE | 2018-12-24 19:55 | NUR ---
33 Y/O MALE PRESENTS TO ED WITH C/O BILAT FOOT PAIN >6 MONTHS. 08/13 PAIN. VSS. SITTING IN CHAIR WIHOUT DISTRESS OF ANY KIND AT THIS TIME. BILAT FEET, NO REDNESS, NO EDEMA, NO BRUISING, NO OPEN MARY. ER MD AWARE. CONTINUE TO MONITOR.
--- NOTE | 2018-12-24 19:55 | NUR ---
PT AMBULATED TO [facility].
[2018-12-24 21:08] VITALS: BP 135/81
--- NOTE | 2018-12-24 21:08 | NUR ---
DISCHARGE PAPERS GIVEN TO PT. RX OF IBUPROFEN GIVEN. SIDE EFFECTS EXPLAINED. PT STATES RELIEFE. 0/10 PAIN WITH VSS. INSTRUCTED TO F/U WITH A PCP. PROVIDED WITH NUMBER TO CALL AND SET UP A PRIMARY CARE PROVIDER. INSTRUCTED ON WHEN TO RETURN TO ER. PT VERBALLIZED UNDERSTANDING OF DC INSTRUCTIONS. ALL QUESTIONS ANSWERED.
== END 2018-12-24 21:08 | disposition home or self-care (01) ==
LOC: MED 18:51
DX: M79.672 Pain in left foot (principal); M79.671 Pain in right foot; G89.29 Other chronic pain; Z88.8 Allergy status to other drugs, medicaments and biological substances; Z91.013 Allergy to seafood
CPT/HCPCS: 82948; 99282

== ENCOUNTER 2018-12-26 16:21 | Emergency (ER) | payer OTHER, MEDICAID ==
[~2018-12-26] VITALS: Ht 175.3 cm; Wt 90.3 kg
[2018-12-26 16:22] VITALS: BP 128/83
--- NOTE | 2018-12-26 16:36 | NUR ---
33/M PRESENTS TO ED, C/O FEELING OF "GREASY STOMACH" AFTER EATING GREASY PIZZA AND CHICKEN, STARTED 2 HRS AGO. PT ALSO C/O FEELING DEHYDRATED. DENIES ABD PAIN. REPORTS NAUSEA, DENIES VOMITING. PT AWAKE AND ALERT, SKIN NORMAL COLOR WARM AND DRY, MUCUOUS MEMBRANE MOIST, RR EVEN AND UNLABORED. ABD SOFT ROUND NONTENDER. DENIES MED HX OR RX.
--- NOTE | 2018-12-26 16:37 | NUR ---
Dr. De Leon evaluating patient.
[2018-12-26] MEDS ORDERED: ONDANSETRON 4 MG ODT PO ONE (16:40)
[2018-12-26] MEDS ORDERED: DICYCLOMINE HCL LIQUID 20 MG, ALUMINUM HYD/MAG/SIMETHICONE 30 ML, LIDOCAINE VISCOUS 2% ... PO ONE ×3 (16:40)
--- NOTE | 2018-12-26 16:40 | NUR ---
PT PROVIDED WITH CUPS OF WATER
[2018-12-26 17:11] VITALS: BP 128/83
== END 2018-12-26 17:12 | disposition home or self-care (01) ==
LOC: MED 16:21
DX: R11.0 Nausea (principal); Z88.8 Allergy status to other drugs, medicaments and biological substances; Z91.013 Allergy to seafood
CPT/HCPCS: 99283; Q0162

== ENCOUNTER 2018-12-27 21:15 | Emergency (ER) | payer OTHER, MEDICAID ==
[~2018-12-27] VITALS: Ht 172.7 cm; Wt 90.7 kg
[2018-12-27 21:35] VITALS: BP 140/83
--- NOTE | 2018-12-27 21:38 | NUR ---
TO LOBBY A/W BED AMBULATORY
--- NOTE | 2018-12-27 21:50 | NUR ---
EKG PERFORMED IN TRIAGE ROOM
--- NOTE | 2018-12-27 21:51 | NUR ---
VISUAL ACUITY TEST PERFORMED, 20/20 BILATERAL EYES
--- NOTE | 2018-12-27 22:30 | NUR ---
PT CALLED. NO RESPONSE.
--- NOTE | 2018-12-27 23:30 | NUR ---
PT CALLED. NO RESPONSE.
--- NOTE | 2018-12-28 | NUR ---
PT CALLED. NO RESPONSE. PT LWBS AT 2230.
== END 2018-12-27 22:30 | disposition left against medical advice (07) ==
LOC: MED 21:15
DX: H57.13 Ocular pain, bilateral (principal); R07.9 Chest pain, unspecified; Z53.21 Procedure and treatment not carried out due to patient leaving prior to being seen by health care provider
CPT/HCPCS: 93005; 99281; 99283

== ENCOUNTER 2018-12-29 15:10 | Emergency (ER) | payer OTHER, MEDICAID ==
[~2018-12-29] VITALS: Ht 175.3 cm; Wt 90.3 kg
[2018-12-29 15:14] VITALS: BP 100/49
--- NOTE | 2018-12-29 15:23 | NUR ---
PT MOVED TO CHAIR B.
--- NOTE | 2018-12-29 15:23 | NUR ---
PT AMBULATED TO ER BED 07
--- NOTE | 2018-12-29 15:32 | NUR ---
33/M PRESENTS TO ED, C/O MIDCHEST PAIN RADIATING TO EPIGASTRIC REGION TO THROAT, SINCE THIS AM. PT REPORTS EXACERBATION WITH DEEP INSPIRATION AND EXHALATION. REPORTS COUGH ONLY IN AM. DENIES FEVER, SOB, N/V. PT AWAKE AND ALERT, SKIN NORMAL COLOR WARM AND DRY, RR EVEN AND UNLABORED. DENIES MED HX, RX OR OTC.
[2018-12-29] MEDS ORDERED: LIDOCAINE VISCOUS 2% 20 ML UDC PO ONE (16:20)
[2018-12-29] MEDS ORDERED: ALUMINUM HYD/MAG/SIMETHICONE 30 ML UDC PO ONE (16:20)
[2018-12-29 16:28] VITALS: BP 100/49
--- NOTE | 2018-12-29 16:28 | NUR ---
RECENT VS STABLE, OK FOR DISCHARGE PER ER MD. REPORTS RELIEF IN PAIN AFTER MEDS.
--- NOTE | 2018-12-29 16:29 | NUR ---
Patient discharged with v/s stable. Written and verbal after care instructions given and explained. Patient alert, oriented and verbalized understanding of instructions. Ambulatory with steady gait. All questions addressed prior to discharge. ID band removed. Patient advised to follow up with PMD. Rx of PRILOSEC given. Patient educated on indication of medication including possible reaction and side effects. Opportunity to ask questions provided and answered.
--- NOTE | 2018-12-29 16:29 | NUR ---
PT WITH ADDRESS BUT CHOOSES TO RETURN TO PREVIOUS LIVING ARRANGEMENT IN STREETS . CALLED DIRECT SUPPORT WORKER FOR [employer] MEAL PACKET AND BUS PASS. PT WAITING IN LOBBY. PT WITH APPROPRIATE CLOTHES FOR WEATHER. OFFERED HOMELESS RESOURCE PACKET, PT REFUSED, REFUSED TO SIGN HOMELESS RESOURCE WAIVER FORM.
== END 2018-12-29 16:29 | disposition home or self-care (01) ==
LOC: MED 15:10
DX: R07.89 Other chest pain (principal); J02.9 Acute pharyngitis, unspecified; F17.210 Nicotine dependence, cigarettes, uncomplicated; F14.90 Cocaine use, unspecified, uncomplicated; F15.90 Other stimulant use, unspecified, uncomplicated; Z88.8 Allergy status to other drugs, medicaments and biological substances; Z91.018 Allergy to other foods; Z59.0 Homelessness
CPT/HCPCS: 93005; 99283

== ENCOUNTER 2018-12-30 17:11 | Emergency (ER) | payer OTHER, MEDICAID ==
[~2018-12-30] VITALS: Ht 175.3 cm; Wt 91.2 kg
[2018-12-30 18:17] VITALS: BP 157/98
--- NOTE | 2018-12-30 18:22 | NUR ---
ASSISTED PT TO WAIT IN THE LOBBY.
--- NOTE | 2018-12-30 20:53 | NUR ---
NO CHANGE IN PT CONDITION. VSS. NO BED AVAILABLE. PT SENT TO LOBBY.
--- NOTE | 2018-12-30 21:43 | NUR ---
33/M PRESENTS TO ED, REQUESTING FOR SECOND MEDICAL OPINION/EVALUATION OF UMBILICAL HERNIA, WAS DIAGNOSED TODAY AT [facility]. PT DENIES ABD PAIN, FEVER, N/V/D, CONSTIPATION. PT AWAKE AND ALERT, SKIN NORMAL COLOR WARM AND DRY, RR EVEN AND UNLABORED. ABD SOFT ROUND NONTENDER. PALPABLE MASS NOTED ON UMBILICAL REGION. DENIES MED HX OR RX.
[2018-12-30 22:06] VITALS: BP 145/89
== END 2018-12-30 22:06 | disposition home or self-care (01) ==
LOC: MED 17:11
DX: K46.9 Unspecified abdominal hernia without obstruction or gangrene (principal); Z88.8 Allergy status to other drugs, medicaments and biological substances; Z91.013 Allergy to seafood
CPT/HCPCS: 99283

== ENCOUNTER 2018-12-31 23:54 | Emergency (ER) | payer OTHER, MEDICAID ==
[~2018-12-31] VITALS: Ht 172.7 cm; Wt 81.6 kg
[2019-01-01] VITALS: BP 123/79
--- NOTE | 2019-01-01 | NUR ---
Dr. Hernandez examining patient.
--- NOTE | 2019-01-01 | NUR ---
PT CAME INTO ER WITH C/O ABDOMINAL PAIN. PT STATES THAT HE HAS A HERNIA. PT WAS HERE IN ER THE LAST 3 DAYS PER PT. PT STATES THAT HE IS IN NEED OF PASSING GAS. PT IS A/OX4. ERMD MADE AWARE OF STATUS. PAIN LEVEL IS 3/10 AT THIS TIME. PT DENIES WANTING PAIN MEDICATION AT THIS TIME. SAFETY MEASURES IN PLACE.
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
--- NOTE | 2019-01-01 00:10 | NUR ---
PT WAS INSTRUCTED TO LEAVE THE TRIAGE ROOM, PT STATED HE WANTED US TO CALL THE POLICE AND STARTED CURSING AT ALL STAFF AND SECURITY. DAVON BARRON WAS NOTIFIED. ASHLID MADE AWARE
--- NOTE | 2019-01-01 00:12 | NUR ---
STAFF WAS ABLE TO ASSIST PT TO THE LOBBY, PT WAS ARGUMENTIVE AND CURSING AT STAFF. PT REFUSED TO LEAVE THE HOSPITAL. SECURITY IS AT CHAIR SIDE WITH PT.
--- NOTE | 2019-01-01 00:12 | NUR ---
DAVON BARRON CALLED BY [place] MAKERBIENVENIDO GEORGE
--- NOTE | 2019-01-01 00:18 | NUR ---
Patient discharged with v/s stable. Written and verbal after care instructions given and explained. Patient verbalized understanding. Ambulatory with steady gait. All questions addressed prior to discharge. Advised to follow up with PMD. PT WAS INSTRUCTED TO FOLLOW UP WITH A PCP. PT STATED HE WILL. PT STATED PAIN WAS 2/10 AT TIME OF D/C
--- NOTE | 2019-01-01 00:21 | NUR ---
[employer] [employer] OFFICERS WITH PATIENT
[2019-01-01 00:30] VITALS: BP 123/79
--- NOTE | 2019-01-01 00:30 | NUR ---
[employer] OFFICER [facility] [facility] TOOK PT IN CUSTODY. OK TO BOOK WAS SIGNED BY .
== END 2019-01-01 00:18 | disposition home or self-care (01) ==
LOC: MED 23:54
DX: R10.9 Unspecified abdominal pain (principal); Z76.5 Malingerer [conscious simulation]; Z91.018 Allergy to other foods; Z88.8 Allergy status to other drugs, medicaments and biological substances
CPT/HCPCS: 99283

== ENCOUNTER 2019-01-20 23:23 | Emergency (ER) | payer OTHER, MEDICAID ==
[~2019-01-20] VITALS: Ht 175.3 cm; Wt 90.3 kg
[2019-01-20 23:27] VITALS: BP 124/68
--- NOTE | 2019-01-21 00:13 | NUR ---
PATIENT INFORMED ADMITTING STAFF THAT HE WAS LEAVING AND NOT PLANNING ON RETURNING.
== END 2019-01-21 00:13 | disposition left against medical advice (07) ==
LOC: MED 23:23
DX: M79.604 Pain in right leg (principal); M79.605 Pain in left leg; Z53.21 Procedure and treatment not carried out due to patient leaving prior to being seen by health care provider

== ENCOUNTER 2019-01-23 04:15 | Emergency (ER) | payer OTHER, MEDICAID ==
[~2019-01-23] VITALS: Ht 175.3 cm; Wt 90.3 kg
[2019-01-23 04:31] VITALS: BP 131/101
--- NOTE | 2019-01-23 04:33 | NUR ---
DR RAE EXAMINING PT.
[2019-01-23] MEDS ORDERED: IBUPROFEN 800 MG TAB PO ONE (04:35)
--- NOTE | 2019-01-23 04:39 | NUR ---
33 Y/O MALE WITH C/O BILATERAL LEG PAIN POSTERIOR KNEE AND CALF PAIN X1 DAY. PT ABLE TO AMBULATE. +CMS. 10/10 ACHING PAIN. PT SITTING IN CHAIR CALM AND PLEASANT. VSS.
--- NOTE | 2019-01-23 04:44 | NUR ---
pt was demonstrated on how to wrap his legs with out assistance.
[2019-01-23 04:46] VITALS: BP 131/101
--- NOTE | 2019-01-23 04:47 | NUR ---
Patient discharged with v/s stable. Written and verbal after care instructions given and explained. Patient alert, oriented and verbalized understanding of instructions. Ambulatory with steady gait. All questions addressed prior to discharge. ID band removed. Patient advised to follow up with PMD. Rx of MOTRIN 800MG given. Patient educated on indication of medication including possible reaction and side effects. Opportunity to ask questions provided and answered. PT EDUCATED ON USE OF ROOPA WRAP.
== END 2019-01-23 04:47 | disposition home or self-care (01) ==
LOC: MED 04:15
DX: S86.811A Strain of other muscle(s) and tendon(s) at lower leg level, right leg, initial encounter (principal); S86.812A Strain of other muscle(s) and tendon(s) at lower leg level, left leg, initial encounter; X58.XXXA Exposure to other specified factors, initial encounter; Y93.89 Activity, other specified; Y92.89 Other specified places as the place of occurrence of the external cause; Y99.8 Other external cause status; F15.10 Other stimulant abuse, uncomplicated; Z88.8 Allergy status to other drugs, medicaments and biological substances
CPT/HCPCS: 99283

== ENCOUNTER 2019-01-25 19:02 | Emergency (ER) | payer OTHER, MEDICAID ==
[~2019-01-25] VITALS: Ht 175.3 cm; Wt 90.3 kg
[2019-01-25 19:32] VITALS: BP 126/86
--- NOTE | 2019-01-25 19:40 | NUR ---
PT AMBULATED TO THE LOBBY WITH VSS.
[2019-01-25 21:50] VITALS: BP 130/83
--- NOTE | 2019-01-25 21:50 | NUR ---
PT SEEN IN LOBBY, CONDITION UNCHANGED.
--- NOTE | 2019-01-26 00:35 | NUR ---
PT AMBULATED TO BED #11
--- NOTE | 2019-01-26 01:00 | NUR ---
33 Y/O MALE PRESENTS TO ED, C/O RIGHT LEG PAIN X1 DAY. PT STATES PAIN IS 9/10. ABLE TO AMBULATE WITH SLOW STEADY GAIT. FULL ROM. PT DENIES ANY TRAUMA. BILAT STRONG PEDAL PULSES. PT DENIES TAKING MEDICATIONS FOR PAIN. PT STABLE. ERMD AWARE. WILL CONTINUE TO MONITOR.
[2019-01-26] MEDS ORDERED: KETOROLAC 60 MG/2 ML VIAL IM ONE (01:45)
== END 2019-01-26 03:04 | disposition home or self-care (01) ==
LOC: MED 19:02
DX: M25.571 Pain in right ankle and joints of right foot (principal); Z91.013 Allergy to seafood; Z88.8 Allergy status to other drugs, medicaments and biological substances
CPT/HCPCS: 73610; 96372; 99283; J1885; Q0092

== ENCOUNTER 2019-01-28 17:57 | Emergency (ER) | payer OTHER, MEDICAID ==
[~2019-01-28] VITALS: Ht 172.7 cm; Wt 90.3 kg
[2019-01-28 18:00] VITALS: BP 133/87
--- NOTE | 2019-01-28 18:04 | NUR ---
PT TAKEN TO CHAIR B
--- NOTE | 2019-01-28 19:11 | NUR ---
Patient discharged with v/s stable. Written and verbal after care instructions given and explained. Patient alert, oriented and verbalized understanding of instructions. Ambulatory with steady gait. All questions addressed prior to discharge. ID band removed. Patient advised to follow up with PMD. Rx of naprosyn and voltaren given. Patient educated on indication of medication including possible reaction and side effects. Opportunity to ask questions provided and answered.
== END 2019-01-28 19:11 | disposition home or self-care (01) ==
LOC: MED 17:57
DX: M25.571 Pain in right ankle and joints of right foot (principal); Z88.1 Allergy status to other antibiotic agents; Z91.013 Allergy to seafood
CPT/HCPCS: 99283

== ENCOUNTER 2019-01-29 23:13 | Emergency (ER) | payer OTHER, MEDICAID ==
[~2019-01-29] VITALS: Ht 172.7 cm; Wt 75.3 kg
--- NOTE | 2019-01-30 00:06 | NUR ---
PT TAKEN TO BED 2
[2019-01-30 00:11] VITALS: BP 115/81
--- NOTE | 2019-01-30 00:20 | NUR ---
PT MOVED TO CHAIR B
--- NOTE | 2019-01-30 00:20 | NUR ---
33 Y/O MALE C/O RT LEG PAIN X2 WEEKS. PT DENIES TRAUMA TO LEG. STATES ACHING 8/10 PAIN. PT ABLE TO AMBULATE. +CMS. PT UNCOOPERATIVE AT THIS TIME. VSS. MEDHX: DENIES ALLERGIES: IODINE
--- NOTE | 2019-01-30 03:18 | NUR ---
Patient discharged with v/s stable. Written and verbal after care instructions given ABOUT PERIPHERAL EDEMA and explained. Patient alert, oriented and verbalized understanding of instructions. Ambulatory with steady gait. All questions addressed prior to discharge. ID band removed. Patient advised to follow up with PMD. Rx of IBUPROFEN given. Patient educated on indication of medication including possible reaction and side effects. Opportunity to ask questions provided and answered.
== END 2019-01-30 03:18 | disposition home or self-care (01) ==
LOC: MED 23:13
DX: R60.0 Localized edema (principal); Z91.013 Allergy to seafood; Z88.8 Allergy status to other drugs, medicaments and biological substances
CPT/HCPCS: 99282

== ENCOUNTER 2019-01-31 16:45 | Emergency (ER) | payer OTHER, MEDICAID ==
[~2019-01-31] VITALS: Ht 172.7 cm; Wt 92.5 kg
[2019-01-31 17:11] VITALS: BP 123/87
--- NOTE | 2019-01-31 17:11 | NUR ---
Dr. Hernandez evaluating patient.
--- NOTE | 2019-01-31 17:20 | NUR ---
ADPT C/O LOSING OF PRESCRIPTIONS. PT C/O SPASMS IN BACK OF KNEES AND BILATERAL ANKLE SWELLING. PATIENT STATES PAIN OF 7/10 AT THIS TIME; VSS; PATIENT POSITIONED FOR COMFORT. ER MD MADE AWARE OF PT STATUS.
--- NOTE | 2019-01-31 17:30 | NUR ---
BUS PASS AND HOT WATER GIVEN PER PT REQUEST. DENIES NEED FOR CLOTHING.
[2019-01-31 17:32] VITALS: BP 119/85
== END 2019-01-31 17:18 | disposition home or self-care (01) ==
LOC: MED 16:45
DX: M25.562 Pain in left knee (principal); M25.561 Pain in right knee; Z91.013 Allergy to seafood; Z88.8 Allergy status to other drugs, medicaments and biological substances; Z76.0 Encounter for issue of repeat prescription
CPT/HCPCS: 99283

== ENCOUNTER 2019-02-08 11:03 | Emergency (ER) | payer OTHER, MEDICAID | END 2019-02-08 12:45 | disposition home or self-care (01) | LOC: MED 11:03 | DX: L25.9 Unspecified contact dermatitis, unspecified cause (principal) | CPT/HCPCS: 99282 ==

== ENCOUNTER 2019-02-26 19:41 | Emergency (ER) | payer OTHER, MEDICAID ==
[~2019-02-26] VITALS: Ht 175.3 cm; Wt 90.3 kg
[2019-02-26 19:45] VITALS: BP 142/71
--- NOTE | 2019-02-26 19:45 | NUR ---
TO CHAIR A AMBULATORY
--- NOTE | 2019-02-26 19:50 | NUR ---
33 Y/O MALE BIB SELF C/O COUGH X 30 DAYS. PT STATES DRY, NON PRODUCTIVE COUGH. 5/10 CHEST PAIN PROVOKED BY COUGH. COUGH OCCURS ONLY IN THE MORNING WHEN HE WAKES UP. RR EVEN AND UNLABORED. NO ACCESSORY MUSCLE USE. PT ABLE TO SPEAK IN FULL SENTENSE. PT SITTING IN RACIEL, CALM AND PLESANT. VSS MEDHX: DENIES ALLERGIES: IODINE
--- NOTE | 2019-02-26 19:54 | NUR ---
Dr. Hernandez examining patient.
--- NOTE | 2019-02-26 20:08 | NUR ---
PT RETURNED BACK FROM XR VIA W/C.
--- NOTE | 2019-02-26 20:08 | NUR ---
Sim husain in ED - 02/26/19 at 2042 by GABRIELLA PT RETURN FROM XRAY
[2019-02-26 20:42] VITALS: BP 142/71
--- NOTE | 2019-02-26 20:43 | NUR ---
Patient discharged with v/s stable. Written and verbal after care instructions given and explained. Patient alert, oriented and verbalized understanding of instructions. Ambulatory with steady gait. All questions addressed prior to discharge. ID band removed. Patient advised to follow up with PMD. Rx of AUGMENTIN AND TESSALON PERLES given. Patient educated on indication of medication including possible reaction and side effects. Opportunity to ask questions provided and answered.
== END 2019-02-26 20:43 | disposition home or self-care (01) ==
LOC: MED 19:41
DX: J40 Bronchitis, not specified as acute or chronic (principal); F20.9 Schizophrenia, unspecified; Z88.8 Allergy status to other drugs, medicaments and biological substances; Z91.013 Allergy to seafood
CPT/HCPCS: 71045; 99283

== ENCOUNTER 2019-03-05 15:51 | Emergency (ER) | payer OTHER, MEDICAID ==
[~2019-03-05] VITALS: Ht 172.7 cm; Wt 90.3 kg
[2019-03-05 15:59] VITALS: BP 131/67
[2019-03-05] MEDS ORDERED: DICYCLOMINE HCL LIQUID 20 MG, ALUMINUM HYD/MAG/SIMETHICONE 30 ML, LIDOCAINE VISCOUS 2% ... PO ONE ×3 (16:15)
[2019-03-05] MEDS ORDERED: ACETAMINOPHEN 325 MG TAB PO ONE (16:15)
[2019-03-05] MEDS ORDERED: ALUMINUM HYD/MAG/SIMETHICONE 30 ML UDC ONE (16:22)
[2019-03-05] MEDS ORDERED: DICYCLOMINE HCL LIQUID 10 MG/5 ML UDC ONE (16:22)
[2019-03-05] MEDS ORDERED: LIDOCAINE VISCOUS 2% 20 ML UDC ONE (16:22)
--- NOTE | 2019-03-05 16:35 | NUR ---
DR LANDA AT BEDSIDE EXPLAINED MEDS TO PT REFUSE MEDS STILL.
--- NOTE | 2019-03-05 16:39 | NUR ---
C/O MID ABDOMINAL PAIN RADIATING TO MID CHEST X TODAY 09/12. DRAK 2 CANS OF BEER TODAY.PT AWAKE ,ALERT ,AFEBRILE, AMBULATORY WITH STEADY GAIT. MED HX:DENIES
--- NOTE | 2019-03-05 17:20 | NUR ---
labs at bedside.
[2019-03-05 17:35] LABS: BASOPHILS % (AUTO) 0.6 % (0.0-2.0); EOSINOPHILS # (AUTO) 0.1 K/uL (0-0.4); EOSINOPHILS % (AUTO) 1.7 % (0.0-4.0); HEMATOCRIT 43.8 % (36-52); HEMOGLOBIN 14.4 g/dL (12.0-18.0); LYMPHOCYTES # (AUTO) 2.1 K/uL (2.0-11.5); LYMPHOCYTES % (AUTO) 37.8 % (20.5-51.1); MEAN CORPUSCULAR HEMOGLOBIN 31 pg (27-31); MEAN CORPUSCULAR HGB CONC 33 g/dL (33-37); MEAN CORPUSCULAR VOLUME 94.5 fL (80-94); MONOCYTES # (AUTO) 0.4 K/uL (0.8-1.0); MONOCYTES % (AUTO) 8.2 % (1.7-9.3); NEUTROPHILS # (AUTO) 2.8 K/uL (1.8-7.7); NEUTROPHILS % (AUTO) 51.7 % (42.2-75.2); PLATELET COUNT (AUTO) 226 K/uL (140-450); RED BLOOD CELL COUNT(AUTO) 4.64 MIL/uL (4.20-6.10); RED CELL DISTRIBUTION WIDTH 13.8 % (11.6-13.7); WHITE BLOOD COUNT (AUTO) 5.5 K/uL (4.8-10.8)
[2019-03-05 17:55] LABS: ALBUMIN 3.9 g/dL (3.4-5.0); ANION GAP 15.8 (8-16); CARBON DIOXIDE 26.2 mmol/L (21-32); CREATININE 1.1 mg/dL (0.7-1.3); TOTAL BILIRUBIN 0.3 mg/dL (0.0-1.0)
--- NOTE | 2019-03-05 18:33 | NUR ---
Patient discharged with v/s stable. Written and verbal after care instructions given and explained. Patient alert, oriented and verbalized understanding of instructions. Ambulatory with steady gait. All questions addressed prior to discharge. ID band removed. Patient advised to follow up with PMD. Rx of Mylanta given. Patient educated on indication of medication including possible reaction and side effects. Opportunity to ask questions provided and answered. Pt provided with a sandwich and a bus pass.
[2019-03-05 18:35] VITALS: BP 116/66
== END 2019-03-05 18:33 | disposition home or self-care (01) ==
LOC: MED 15:51
DX: K29.20 Alcoholic gastritis without bleeding (principal); Z91.013 Allergy to seafood; Z88.8 Allergy status to other drugs, medicaments and biological substances
CPT/HCPCS: 36415; 71045; 80053; 84484; 85025; 93005; 99284; Q0092

== ENCOUNTER 2019-03-08 23:37 | Emergency (ER) | payer OTHER, MEDICAID ==
[~2019-03-08] VITALS: Ht 175.3 cm; Wt 90.7 kg
[2019-03-08 23:47] VITALS: BP 159/90
--- NOTE | 2019-03-08 23:50 | NUR ---
TO LOBBY A/W BED AMBULATORY
--- NOTE | 2019-03-09 07:26 | NUR ---
PATIENT LEFT WITHOUT BEING SEEN BY DR. WARREN. NO FURTHER CARE PROVIDED FOR PATIENT.
== END 2019-03-09 07:26 | disposition left against medical advice (07) ==
LOC: MED 23:38
DX: R00.0 Tachycardia, unspecified (principal); Z53.21 Procedure and treatment not carried out due to patient leaving prior to being seen by health care provider

== ENCOUNTER 2019-03-29 03:23 | Emergency (ER) | payer OTHER, MEDICAID ==
[~2019-03-29] VITALS: Ht 175.3 cm; Wt 90.3 kg
[2019-03-29 03:24] VITALS: BP 137/61
--- NOTE | 2019-03-29 03:26 | NUR ---
TO LOBBY A/W BED AMBULATORY
--- NOTE | 2019-03-29 04:25 | NUR ---
TO ER BED 9
--- NOTE | 2019-03-29 04:40 | NUR ---
PATIENT LAYING IN BED. BED LOW AND LOCKED. ASSESSMENT COMPLETED. BIB SELF REPORTING A QUATER SIZED PROTUSION FOR THE LAST 2 MONTHS. DENIES PAIN. NO DISCOLORTION OR TENDERNESS. PATIENT STATES REGULAR BM YESTERDAY. PATIENT DENIES ANY OTHER SYMPTOMS AT THIS TIME.
[2019-03-29] MEDS ORDERED: DICYCLOMINE 20 MG/2 ML VIAL IM ONE (06:45)
[2019-03-29 06:55] VITALS: BP 137/61
== END 2019-03-29 06:56 | disposition home or self-care (01) ==
LOC: MED 03:23
DX: R10.13 Epigastric pain (principal); Z88.8 Allergy status to other drugs, medicaments and biological substances; Z91.013 Allergy to seafood
CPT/HCPCS: 99283; J0500

== ENCOUNTER 2019-05-05 22:08 | Emergency (ER) | payer OTHER, MEDICAID ==
[~2019-05-05] VITALS: Ht 175.3 cm; Wt 91.2 kg
[2019-05-05 22:15] VITALS: BP 115/65
--- NOTE | 2019-05-05 22:25 | NUR ---
Pt triaged, sent back to lobby awaiting for bed
--- NOTE | 2019-05-05 22:33 | NUR ---
Dr Palomo made aware of pt status, cancel standard order for L wrist XR.
--- NOTE | 2019-05-05 22:34 | NUR ---
33/M presents ambulatory to ED, c/o L wrist pain x6 months. Denies trauma/injury. Pt with full ROM, +CMS. Pt reports pain when extending wrist, denies pain when wrist is flexed. Pt awake and alert, skin normal color warm and dry, rr even and unlabored. Denies med hx or rx.
--- NOTE | 2019-05-05 22:46 | NUR ---
DR. SCOTT EVALUTING PT
[2019-05-05] MEDS: IBUPROFEN 600 MG TAB PO ONE ×2 (22:59→23:08)
--- NOTE | 2019-05-05 23:00 | NUR ---
Pt refused motrin PO, pt stated he does not need the pain med anymore. Pt is homeless, refused bus pass/meal, refused homeless resource packet, stated that he will go back to his prior living arrangement.
[2019-05-05 23:06] VITALS: BP 115/65
--- NOTE | 2019-05-05 23:06 | NUR ---
L wrist removable velcro splint placed by EMT, +CMS distally from wrist
== END 2019-05-05 23:06 | disposition home or self-care (01) ==
LOC: MED 22:08
DX: M25.532 Pain in left wrist (principal); Z88.8 Allergy status to other drugs, medicaments and biological substances; Z91.013 Allergy to seafood
CPT/HCPCS: 99283

== ENCOUNTER 2019-05-22 18:38 | Emergency (ER) | payer OTHER, MEDICAID ==
[~2019-05-22] VITALS: Ht 172.7 cm; Wt 88.9 kg
[2019-05-22 18:46] VITALS: BP 153/117
--- NOTE | 2019-05-22 19:51 | NUR ---
PT TREATED ASSESSED AND DC BY VIJAYA LANIER. Patient discharged with v/s stable. Written and verbal after care instructions given and explained. Patient alert, oriented and verbalized understanding of instructions. Ambulatory with steady gait. All questions addressed prior to discharge. ID band removed. Patient advised to follow up with PMD. Rx of ALBUTEROL AND PROMETHAZINE given. Patient educated on indication of medication including possible reaction and side effects. Opportunity to ask questions provided and answered.
[2019-05-22 19:53] VITALS: BP 130/98
== END 2019-05-22 19:53 | disposition home or self-care (01) ==
LOC: MED 18:38
DX: J06.9 Acute upper respiratory infection, unspecified (principal); Z91.09 Other allergy status, other than to drugs and biological substances
CPT/HCPCS: 99283

== ENCOUNTER 2019-06-08 04:55 | Emergency (ER) | payer OTHER, MEDICAID ==
[~2019-06-08] VITALS: Ht 177.8 cm; Wt 86.2 kg
[2019-06-08 05:06] VITALS: BP 107/52
--- NOTE | 2019-06-08 05:06 | NUR ---
AMBULATORY WITH STEADY GAIT TO CHAIR C
--- NOTE | 2019-06-08 05:14 | NUR ---
33 Y/O MALE PRESENTS TO ED, C/O JOINT PAIN ON ALL EXTREMITIES; 12/13. PT STATES PAIN STARTED 2 DAYS AGO. PT DENIES ANY TRAUMA OR SEVERE EXERTION. AMBULATORY WITH STEADY GAIT. GOOD ORAL SURGERY TECHNICIAN STRENGTH. DENIES ANY MEDICATIONS FOR PAIN. PT VSS. ERMD AWARE. WILL CONTINUE TO MONITOR.
[2019-06-08 05:19] VITALS: BP 107/52
--- NOTE | 2019-06-08 05:19 | NUR ---
PT DISCHARGED WITH PAPERWORK. EDUCATED REGARDING MEDICATIONS AND D/C INSTRUCTIONS. PT VERBALIZED UNDERSTANDING OF TEACHING. TOLD PT TO FOLLOW UP WITH PCP AND WHEN TO RETURN TO ED. PT STABLE CONDITION, AMBULATORY WITH STEADY GAIT. ALL QUESTIONS ANSWERED.
== END 2019-06-08 05:19 | disposition home or self-care (01) ==
LOC: MED 04:55
DX: M25.521 Pain in right elbow (principal); M25.522 Pain in left elbow; M25.561 Pain in right knee; M25.562 Pain in left knee; Z88.8 Allergy status to other drugs, medicaments and biological substances; Z91.013 Allergy to seafood
CPT/HCPCS: 99282; 99283

== ENCOUNTER 2019-06-11 16:28 | Emergency (ER) | payer OTHER, MEDICAID ==
[~2019-06-11] VITALS: Ht 177.8 cm; Wt 90.7 kg
[2019-06-11 16:37] VITALS: BP 145/101
[2019-06-11 17:02] VITALS: BP 145/101
== END 2019-06-11 17:03 | disposition home or self-care (01) ==
LOC: MED 16:28
DX: R07.89 Other chest pain (principal); Z88.8 Allergy status to other drugs, medicaments and biological substances; Z91.013 Allergy to seafood
CPT/HCPCS: 93005; 99283

== ENCOUNTER 2019-06-14 18:34 | Emergency (ER) | payer OTHER, MEDICAID ==
[~2019-06-14] VITALS: Ht 177.8 cm; Wt 90.7 kg
[2019-06-14 18:42] VITALS: BP 114/76
--- NOTE | 2019-06-14 18:48 | NUR ---
Negative screening for covid-19. Pt wearing mask. Pt triaged, sent back to lobby awaiting for bed.
--- NOTE | 2019-06-14 19:20 | NUR ---
PT TAKEN TO RAD VIA WHEELCHAIR
--- NOTE | 2019-06-14 20:30 | NUR ---
PT EVALUATED AND DISHCARGE BY DR. FINCH. NO NURSING CARE PROVIDED FOR PT.
== END 2019-06-14 20:40 | disposition home or self-care (01) ==
LOC: MED 18:34
DX: M25.531 Pain in right wrist (principal); M25.532 Pain in left wrist; Z88.8 Allergy status to other drugs, medicaments and biological substances; Z91.013 Allergy to seafood
CPT/HCPCS: 73110; 99283; Q0092

== ENCOUNTER 2019-06-14 23:17 | Emergency (ER) | payer OTHER, MEDICAID ==
[~2019-06-14] VITALS: Ht 172.7 cm; Wt 86.2 kg
[2019-06-14 23:25] VITALS: BP 121/81
--- NOTE | 2019-06-14 23:31 | NUR ---
PT EVALUATED BY DR. FINCH, NO NURSING CARE PROVIDED FOR PT.
--- NOTE | 2019-06-14 23:41 | NUR ---
PT UP FOR DISCHARGE. PT LEFT WITHOUT DISCHARGE PAPERWORK.
== END 2019-06-14 23:41 | disposition home or self-care (01) ==
LOC: MED 23:17
DX: Z76.0 Encounter for issue of repeat prescription (principal); Z88.8 Allergy status to other drugs, medicaments and biological substances; Z91.013 Allergy to seafood
CPT/HCPCS: 99281

== ENCOUNTER 2019-06-18 22:35 | Emergency (ER) | payer OTHER, MEDICAID ==
[~2019-06-18] VITALS: Ht 175.3 cm; Wt 91.6 kg
[2019-06-18 22:40] VITALS: BP 130/80
--- NOTE | 2019-06-18 22:45 | NUR ---
PT TAKEN TO CHAIR C
--- NOTE | 2019-06-18 22:49 | NUR ---
Dr. Hicks examining patient.
--- NOTE | 2019-06-18 22:53 | NUR ---
PT TAKEN TO XRAY
--- NOTE | 2019-06-18 22:56 | NUR ---
33 Y/O MALE PRESENTS WITH SOB STARTING TODAY. RESP EVEN AND UNLABORED. LUNG SOUNDS CLEAR IN ALL HOPE. SKIN COOL/DRY/ INTACT. DENIES ANY CONTACTS WITH COVID PATIENTS. DENIES FEVER/CHILLS/N/V/D. ABD SOFT/NON TENDER. PMH: BRONCHITIS
--- NOTE | 2019-06-18 22:57 | NUR ---
PT RETURN FROM XRAY
[2019-06-18 23:11] VITALS: BP 130/80
--- NOTE | 2019-06-18 23:11 | NUR ---
Patient discharged with v/s stable. Written and verbal after care instructions given and explained. Patient alert, oriented and verbalized understanding of instructions. Ambulatory with steady gait. All questions addressed prior to discharge. ID band removed. Patient advised to follow up with PMD. Rx of PROMETHAZINE/DEXTROMETHORPHAN given. Patient educated on indication of medication including possible reaction and side effects. Opportunity to ask questions provided and answered.
== END 2019-06-18 23:11 | disposition home or self-care (01) ==
LOC: MED 22:35
DX: R05 Cough (principal); R06.02 Shortness of breath; Z91.013 Allergy to seafood; Z59.0 Homelessness; Z88.8 Allergy status to other drugs, medicaments and biological substances
CPT/HCPCS: 71045; 99283; Q0092

== ENCOUNTER 2019-06-20 22:33 | Emergency (ER) | payer OTHER, MEDICAID ==
[~2019-06-20] VITALS: Ht 175.3 cm; Wt 90.7 kg
[2019-06-20 22:49] VITALS: BP 112/73
--- NOTE | 2019-06-20 22:55 | NUR ---
pt ambulated to bed 5, steady gait.
--- NOTE | 2019-06-20 23:14 | NUR ---
33 Y/O M PRESENTS TO ED C/O COUGH AND SOB X 3 DAYS AGO. PER PT, PT HASN'T BEEN ABLE TO GET HIS PRESCRIBED MEDICATIONS: IBUPROFEN AND TYLENOL SINCE 2 DAYS AGO. PT ALSO C/O OF CHEST PAIN 7/10 X 4 DAYS AGO. AIRWAY INTACT, NO RESPIRATORY DISTRESS NOTED. SYMMETRICAL CHEST RISE. LUNG SOUNDS CLEAR. PT PRESENTS WITH NON-PRODUCTIVE COUGH, PROVIDED MASK FOR PT. O2 SAT 98% RA. PT DENIES PAIN TO RADIATE ANYWHERE ELSE. PMH: DENIES ALLERGIES: IODINE
[2019-06-21 00:05] VITALS: BP 106/64
--- NOTE | 2019-06-21 00:05 | NUR ---
Patient discharged with v/s stable. He states relief. Provided with bus pass and food. Written and verbal after care instructions given and explained. Patient verbalized understanding. Ambulatory with steady gait. All questions addressed prior to discharge. Advised to follow up with PMD.
== END 2019-06-21 00:05 | disposition home or self-care (01) ==
LOC: MED 22:33
DX: J06.9 Acute upper respiratory infection, unspecified (principal); Z59.0 Homelessness
CPT/HCPCS: 99281

== ENCOUNTER 2019-06-24 21:49 | Emergency (ER) | payer OTHER, MEDICAID ==
[~2019-06-24] VITALS: Ht 177.8 cm; Wt 90.7 kg
[2019-06-24 21:55] VITALS: BP 119/101
--- NOTE | 2019-06-24 22:09 | NUR ---
PT AMBUALTED TO CHAIR C WITH STEADY GAIT
--- NOTE | 2019-06-24 22:14 | NUR ---
33M PT STATES HAD UNPROTECTED SEX AND SINCE HAS HAD BURNING UPON URINATION. PT STATES THEY HAD BEEN TAKING AN ANTIBIOTIC THAT IS FOR SYPHILLIS AND GONORRHEA BUT UNABLE TO RECALL NAME OF MEDICATION. DENIES N/V/D. MEDHX: DENIES RX: ABX( UNABLE TO RECALL NAME)
[2019-06-24] MEDS ORDERED: cefTRIAXone 250 MG in LIDOCAINE MPF 1% 0.9 ML IM ONE (22:50)
[2019-06-24 23:16] VITALS: BP 125/81
--- NOTE | 2019-06-24 23:17 | NUR ---
PT GOT AGITATED AND REFUSED ROCEPHIN ADMINSTRATION AND REFUSED DC PAPERWORK.
--- NOTE | 2019-06-24 23:17 | NUR ---
PT FOR D/C PER DR MARQUIS ORDER. Patient discharged with v/s stable. Written and verbal after care instructions given and explained. Patient alert, oriented and verbalized understanding of instructions. Ambulatory with steady gait. All questions addressed prior to discharge. ID band removed. Patient advised to follow up with PMD. Pt refuse his d/c paper including the prescription. Opportunity to ask questions provided and answered. Pt d/c aaox4, and talk in full sentences. Pt throw his stuff on the floor and left.
[2019-06-24] MEDS ORDERED: LIDOCAINE MPF 1% 0 ML ONE (23:20)
[2019-06-24] MEDS ORDERED: cefTRIAXone 250 MG VIAL ONE (23:20)
[2019-06-24 23:42] LABS: APPEARANCE,URINE CLEAR (CLEAR); BILIRUBIN,URINE NEGATIVE (NEGATIVE); BLOOD, URINE NEGATIVE (NEGATIVE); COLOR,URINE YELLOW (YELLOW); LEUKOCYTE ESTERASE ,URINE NEGATIVE (NEGATIVE); NITRITE, URINE NEGATIVE (NEGATIVE); PH,URINE 5.5 (5.0-9.0); UGLUCOSE NEGATIVE (NEGATIVE)
[2019-06-28 06:07] LABS: CHLAMYDIA TRACHOMATIS AMP DNA Negative (Negative)
== END 2019-06-24 23:16 | disposition home or self-care (01) ==
LOC: MED 21:49
DX: R30.0 Dysuria (principal); Z20.2 Contact with and (suspected) exposure to infections with a predominantly sexual mode of transmission; Z91.013 Allergy to seafood; Z91.09 Other allergy status, other than to drugs and biological substances
CPT/HCPCS: 36415; 81003; 99283; J0696; J2001

== ENCOUNTER 2019-07-09 08:54 | Emergency (ER) | payer OTHER, MEDICAID ==
[~2019-07-09] VITALS: Ht 177.8 cm; Wt 89.5 kg
[2019-07-09 08:57] VITALS: BP 146/90
--- NOTE | 2019-07-09 09:10 | NUR ---
33 Y/O MALE C/O FEELING ANXIOUS S/P METH USE 24 HRS AGO. PT STATES HE USED METH FOR THE FIRST TIME YESTERDAY. STATES FEELING OF "RACING HEART BEAT". STATES 5/10 SHARP CHEST PAIN. RR EVEN AND UNLABORED, PT APPEARS ANXIOUS PACING BACK AND FORTH IN TENT. MEDHX: DENIES ALLERGIES: IODINE, SHELLFISH
[2019-07-09 09:12] VITALS: BP 146/90
--- NOTE | 2019-07-09 09:12 | NUR ---
PATIENT LEFT WITHOUT BEING SEEN BY DR. MARQUIS. NO FURTHER CARE PROVIDED FOR PATIENT.
== END 2019-07-09 09:12 | disposition left against medical advice (07) ==
LOC: MED 08:54
DX: Z53.21 Procedure and treatment not carried out due to patient leaving prior to being seen by health care provider (principal)

== ENCOUNTER 2019-07-17 05:35 | Emergency (ER) | payer OTHER, MEDICAID ==
[~2019-07-17] VITALS: Ht 177.8 cm; Wt 89.4 kg
--- NOTE | 2019-07-17 05:35 | NUR ---
ZULLY PETERSON. TAKEN TO CHAIR C
--- NOTE | 2019-07-17 05:38 | NUR ---
Dr. Renteria examining patient.
[2019-07-17 05:41] VITALS: BP 152/56
--- NOTE | 2019-07-17 06:07 | NUR ---
NO NURSING INTERVENTIONS ORDERED BY ERMD. PT DISCHARGED WITH CARE INSTRUCTIONS FOR AMPHETAMINE ABUSE. WRISTBAND REMOVED. VSS.
== END 2019-07-17 06:07 | disposition home or self-care (01) ==
LOC: MED 05:35
DX: F15.10 Other stimulant abuse, uncomplicated (principal); I10 Essential (primary) hypertension; Z91.013 Allergy to seafood; Z88.8 Allergy status to other drugs, medicaments and biological substances
CPT/HCPCS: 99283

== ENCOUNTER 2019-07-17 07:04 | Emergency (ER) | payer OTHER, MEDICAID ==
[~2019-07-17] VITALS: Ht 177.8 cm; Wt 83.9 kg
[2019-07-17 07:15] VITALS: BP 153/104
--- NOTE | 2019-07-17 07:23 | NUR ---
PT AMBULATED TO ER BED 4
--- NOTE | 2019-07-17 07:24 | NUR ---
33/M PRESENTS FOR MED REFILL: ALBUTEROL INHALER. PATIENT STATED HE HAS BROCHITIS ON/OFF & NEEDS ALBUTEROL. DENIES FEVER, COUGH, SOB. APPEARS NAD. NO RESPIRATORY DISTRESS OR COUGH NOTED. ALERT, ORIENTED, COOPERATIVE. ONLY ENDORSES HX OF BRONCHITIS. DENIES ANY OTHER PMH.
--- NOTE | 2019-07-17 07:26 | NUR ---
ERMD BEDSIDE EVALUATING PT
--- NOTE | 2019-07-17 07:36 | NUR ---
PT IN BATHROOM
[2019-07-17 07:42] VITALS: BP 158/92
== END 2019-07-17 07:38 | disposition home or self-care (01) ==
LOC: MED 07:04
DX: R03.0 Elevated blood-pressure reading, without diagnosis of hypertension (principal); J45.909 Unspecified asthma, uncomplicated; Z76.0 Encounter for issue of repeat prescription; Z91.013 Allergy to seafood; Z88.8 Allergy status to other drugs, medicaments and biological substances
CPT/HCPCS: 99281

== ENCOUNTER 2019-08-10 14:53 | Emergency (ER) | payer OTHER, MEDICAID ==
[~2019-08-10] VITALS: Ht 170.2 cm; Wt 83.9 kg
[2019-08-10 15:09] VITALS: BP 145/97
--- NOTE | 2019-08-10 15:14 | NUR ---
PT STATES, POSSIBLY ATE SOMETHING BAD 2 DAYS AGO---INTERMITTENT CRAMPING PAIN SINCE DENIES N/V/D---
[2019-08-10] MEDS ORDERED: ONDANSETRON 4 MG ODT PO ONE (15:15)
[2019-08-10 15:26] VITALS: BP 145/97
== END 2019-08-10 15:26 | disposition home or self-care (01) ==
LOC: MED 14:53
DX: R11.0 Nausea (principal); R19.7 Diarrhea, unspecified; J45.909 Unspecified asthma, uncomplicated; F15.90 Other stimulant use, unspecified, uncomplicated; Z88.8 Allergy status to other drugs, medicaments and biological substances; Z91.013 Allergy to seafood
CPT/HCPCS: 99283; Q0162

== ENCOUNTER 2019-08-20 03:45 | Emergency (ER) | payer OTHER, MEDICAID ==
[~2019-08-20] VITALS: Ht 175.3 cm; Wt 90.7 kg
--- NOTE | 2019-08-20 04:00 | NUR ---
PT WANTED GONZALO CRAKERS AND CRANBERRY JUICE/GIVEN.
[2019-08-20 04:18] VITALS: BP 139/90
--- NOTE | 2019-08-20 04:32 | NUR ---
PT AMBULATED TO CHAIR A WITH STEADY GAIT.
--- NOTE | 2019-08-20 04:39 | NUR ---
PT GOING TO X-RAY VIA WHEELCHAIR
--- NOTE | 2019-08-20 04:45 | NUR ---
PT C/O OF ABD PAIN AND NAUSEA X 4 HRS. DENIES ANY VOMITING OR DIARRHEA. ABD PAIN IS IN THE LOWER QUADRANTS, CRAMPING TYPE PAIN. PT CAN NOT RECALL WHAT HE ATE FOR LUNCH OR DINNER. RATES PAIN 4/10. PT ALSO STAES HE'S DEHYDRATED. NKA NO MED HX
--- NOTE | 2019-08-20 04:45 | NUR ---
PT RETURNED FROM X-RAY
[2019-08-20] MEDS ORDERED: ONDANSETRON 4 MG ODT PO ONE (04:55)
--- NOTE | 2019-08-20 05:09 | NUR ---
REPORT RECEIVED FROM JAIMIE FARIA, TRANSFER OF CARE AT THIS TIME
--- NOTE | 2019-08-20 05:25 | NUR ---
PT HAS NOT VOMITTED FROM 2 WATER CUPS
[2019-08-20 05:30] VITALS: BP 146/107
--- NOTE | 2019-08-20 05:30 | NUR ---
Patient discharged with v/s stable. Written and verbal after care instructions about nausea given and explained. Patient alert, oriented and verbalized understanding of instructions. Ambulatory with steady gait. All questions addressed prior to discharge. ID band removed. Patient advised to follow up with PMD. Rx of mineral oil and zofran given. Patient educated on indication of medication including possible reaction and side effects. Opportunity to ask questions provided and answered.
== END 2019-08-20 05:32 | disposition home or self-care (01) ==
LOC: MED 03:45
DX: K59.00 Constipation, unspecified (principal); R03.0 Elevated blood-pressure reading, without diagnosis of hypertension; R11.2 Nausea with vomiting, unspecified; J45.909 Unspecified asthma, uncomplicated; Z88.8 Allergy status to other drugs, medicaments and biological substances; Z91.013 Allergy to seafood
CPT/HCPCS: 74018; 99283; Q0162

== ENCOUNTER 2019-09-30 20:19 | Emergency (ER) | payer OTHER, MEDICAID ==
[~2019-09-30] VITALS: Ht 175.3 cm; Wt 95.3 kg
[2019-09-30 20:30] VITALS: BP 133/82
[2019-09-30 20:55] VITALS: BP 133/82
== END 2019-09-30 20:55 | disposition home or self-care (01) ==
LOC: MED 20:19
DX: K59.00 Constipation, unspecified (principal); K42.9 Umbilical hernia without obstruction or gangrene; J45.909 Unspecified asthma, uncomplicated; Z91.041 Radiographic dye allergy status; Z91.013 Allergy to seafood
CPT/HCPCS: 99282

== ENCOUNTER 2019-11-01 18:50 | Emergency (ER) | payer OTHER, MEDICAID ==
[~2019-11-01] VITALS: Ht 172.7 cm; Wt 94.3 kg
[2019-11-01 18:54] VITALS: BP 156/113
--- NOTE | 2019-11-01 18:57 | NUR ---
PT AMBULATED TO BED 2.
[2019-11-01] MEDS ORDERED: NACL 0.9% 1,000 ML IV ONE (19:10)
--- NOTE | 2019-11-01 19:20 | NUR ---
33 y/o male c/o abd pain, body aches, and insomnia x 4 days. 5/10 pain. +nausea, diarrhea. -vomiting. medhx: denies allergies: iodine, shellfish
[2019-11-01 19:27] LABS: BASOPHILS % (AUTO) 0.7 % (0.0-2.0); EOSINOPHILS # (AUTO) 0.1 K/uL (0-0.4); HEMATOCRIT 43.8 % (36-52); HEMOGLOBIN 14.8 g/dL (12.0-18.0); LYMPHOCYTES # (AUTO) 0.8 K/uL (2.0-11.5); LYMPHOCYTES % (AUTO) 20.1 % (20.5-51.1); MEAN CORPUSCULAR HEMOGLOBIN 32 pg (27-31); MEAN CORPUSCULAR HGB CONC 34 g/dL (33-37); MEAN CORPUSCULAR VOLUME 94.4 fL (80-94); MONOCYTES # (AUTO) 0.5 K/uL (0.8-1.0); MONOCYTES % (AUTO) 12.8 % (1.7-9.3); NEUTROPHILS # (AUTO) 2.5 K/uL (1.8-7.7); NEUTROPHILS % (AUTO) 64.4 % (42.2-75.2); PLATELET COUNT (AUTO) 170 K/uL (140-450); RED BLOOD CELL COUNT(AUTO) 4.64 MIL/uL (4.20-6.10); RED CELL DISTRIBUTION WIDTH 13.9 % (11.6-13.7); WHITE BLOOD COUNT (AUTO) 3.9 K/uL (4.8-10.8)
[2019-11-01 19:41] LABS: ALBUMIN 3.3 g/dL (3.4-5.0); ANION GAP 13.7 (8-16); CARBON DIOXIDE 25.8 mmol/L (21-32); POTASSIUM 3.5 mmol/L (3.5-5.1); TOTAL BILIRUBIN 0.2 mg/dL (0.0-1.0)
[2019-11-01 20:03] LABS: APPEARANCE,URINE CLEAR (CLEAR); BILIRUBIN,URINE NEGATIVE (NEGATIVE); BLOOD, URINE NEGATIVE (NEGATIVE); COLOR,URINE YELLOW (YELLOW); LEUKOCYTE ESTERASE ,URINE NEGATIVE (NEGATIVE); NITRITE, URINE NEGATIVE (NEGATIVE); UGLUCOSE NEGATIVE (NEGATIVE)
[2019-11-01 20:12] LABS: BARBITURATE, URINE NEGATIVE ng/ml (NEG <=200); BENZODIAZEPINE, URINE NEGATIVE ng/mL (NEG <=200); CANNABINOID, URINE NEGATIVE ng/mL (NEG <=50); COCAINE, URINE NEGATIVE ng/mL (NEG <=300); OPIATE, URINE NEGATIVE ng/mL (NEG <=2000); PHENCYCLIDINE SCREEN,URINE NEGATIVE ng/mL (NEG <=25)
[2019-11-01 20:56] VITALS: BP 156/113
--- NOTE | 2019-11-01 20:56 | NUR ---
Patient discharged with v/s stable. Written and verbal after care instructions given and explained. Patient alert, oriented and verbalized understanding of instructions. Ambulatory with steady gait. All questions addressed prior to discharge. ID band removed. IV Discontinued. Patient advised to follow up with PMD. Rx of MOTRIN given. Patient educated on indication of medication including possible reaction and side effects. Opportunity to ask questions provided and answered.
== END 2019-11-01 20:56 | disposition home or self-care (01) ==
LOC: MED 18:50
DX: E86.0 Dehydration (principal); B34.9 Viral infection, unspecified; J45.909 Unspecified asthma, uncomplicated; Z88.6 Allergy status to analgesic agent; Z91.013 Allergy to seafood
CPT/HCPCS: 36415; 80053; 80305; 81003; 83690; 85025; 96360; 99283; J7030

== ENCOUNTER 2019-11-11 21:36 | Emergency (ER) | payer OTHER, MEDICAID ==
[~2019-11-11] VITALS: Ht 175.3 cm; Wt 95.3 kg
[2019-11-11 22:03] VITALS: BP 122/74
--- NOTE | 2019-11-11 22:07 | NUR ---
PT AMBULATED TO CHAIR A WITH STEADY GAIT
[2019-11-11 22:48] VITALS: BP 122/74
--- NOTE | 2019-11-11 22:48 | NUR ---
Patient discharged with v/s stable. Written and verbal after care instructions given and explained. Patient verbalized understanding. Ambulatory with steady gait. All questions addressed prior to discharge. Advised to follow up with PMD. PT GIVEN BUS PASS AND sandwich
--- NOTE | 2019-11-11 22:48 | NUR ---
PT SEEN, EVALUATED, AND DISCHARGED BY ERMD, NO NURSING INTERVENTIONS PROVIDED
== END 2019-11-11 22:48 | disposition home or self-care (01) ==
LOC: MED 21:36
DX: B34.9 Viral infection, unspecified (principal); J45.909 Unspecified asthma, uncomplicated; Z88.8 Allergy status to other drugs, medicaments and biological substances; Z91.013 Allergy to seafood
CPT/HCPCS: 99282

== ENCOUNTER 2019-11-21 14:17 | Emergency (ER) | payer OTHER, MEDICAID ==
[~2019-11-21] VITALS: Ht 175.3 cm; Wt 89.8 kg
[2019-11-21 14:20] VITALS: BP 148/86
--- NOTE | 2019-11-21 14:20 | NUR ---
PT PRESENTS TO ED WITH C/O TOOTHACHE THAT RADIATES THROUGH HIS JAWLINE OF 09/12 FOR 1 DAY. PT IS AAOX4 DENIES NAUSEA, VOMITING AND FEVER. NO SWELLING NOTED. PT STATES HE HAD HIS PHONE AND NORCO STOLEN AND NEEDS A NEW PRESCRIPTION.
--- NOTE | 2019-11-21 14:31 | NUR ---
PATIENT AMBULATED TO ER BED 07
--- NOTE | 2019-11-21 15:05 | NUR ---
Patient discharged with v/s stable. Written and verbal after care instructions given and explained. Patient alert, oriented and verbalized understanding of instructions. Ambulatory with steady gait. All questions addressed prior to discharge. ID band removed. Patient advised to follow up with PMD. Rx of MOTRIN AND NORCO given. Patient educated on indication of medication including possible reaction and side effects. Opportunity to ask questions provided and answered. PT INSTRUCTED TO AVOID DRIVING AFTER TAKING NORCO, PT VERBALIZED UNDERSTANDING. PT ESCORTED OF UNIT ON FOOT.
== END 2019-11-21 15:05 | disposition home or self-care (01) ==
LOC: MED 14:17
DX: K08.89 Other specified disorders of teeth and supporting structures (principal); J45.909 Unspecified asthma, uncomplicated; Z76.0 Encounter for issue of repeat prescription; Z88.8 Allergy status to other drugs, medicaments and biological substances
CPT/HCPCS: 99281; 99283

== ENCOUNTER 2019-11-25 23:35 | Emergency (ER) | payer OTHER, MEDICAID ==
[~2019-11-25] VITALS: Ht 175.3 cm; Wt 90.3 kg
[2019-11-25 23:39] VITALS: BP 125/78
[2019-11-26] MEDS ORDERED: KETOROLAC 30 MG/ML VIAL IM ONE (02:00)
[2019-11-26 02:20] VITALS: BP 110/60
== END 2019-11-26 02:20 | disposition home or self-care (01) ==
LOC: MED 23:35
DX: R51 Headache (principal); J45.909 Unspecified asthma, uncomplicated; Z88.8 Allergy status to other drugs, medicaments and biological substances; Z91.013 Allergy to seafood
CPT/HCPCS: 70450; 70480; 96372; 99285; J1885

== ENCOUNTER 2019-11-28 19:26 | Emergency (ER) | payer OTHER, MEDICAID ==
[~2019-11-28] VITALS: Ht 175.3 cm; Wt 90.7 kg
--- NOTE | 2019-11-28 19:30 | NUR ---
ATTEMPTED TO CALL PT TO TRIAGE AND HE STATED HE COULD NOT COME IN UNTIL HE WENT TO RR. URINE CUP PROVIDED.
--- NOTE | 2019-11-28 19:45 | NUR ---
ATTEMPTED TO CALL PT BACK TO TRIAGE FOR A SECOND TIME AND HE STATED HE HAS NOT USED THE RR YET AND WOULD LIKE TO COME BACK AFTER HE USES RR.
--- NOTE | 2019-11-28 19:52 | NUR ---
CALLED PT BACK TO TRIAGE FOR A THIRD TIME AND HE WAS NOT IN LOBBY. PT BELONGINGS SITTING IN LOBBY.
[2019-11-28 20:01] VITALS: BP 130/80
--- NOTE | 2019-11-28 20:06 | NUR ---
PT TAKEN TO BED 7
--- NOTE | 2019-11-28 20:09 | NUR ---
Dr. Hicks examining patient.
--- NOTE | 2019-11-28 20:14 | NUR ---
34 Y/O MALE C/O PALPITATIONS WITH 7/10 MID EPIGASTRIC PAIN X2 HOURS. PT DENIES OTC MEDS. PT STATES "I FEEL PAIN WHEN BREATHE." O2 SATURATION 97%. SKIN IS WARM/DRY; AAOX4 WITH EVEN AND STEADY GAIT; LUNGS CLEAR BL; HR EVEN AND REGULAR; PT DENIES ANY FEVER, CP, SOB, OR COUGH AT THIS TIME; PATIENT VSS; PATIENT POSITIONED FOR COMFORT; HOB ELEVATED; BEDRAILS UP X2; BED DOWN. ER MD MADE AWARE OF PT STATUS. MED HX: DENIES NO RX NKA
[2019-11-28 20:16] VITALS: BP 113/88
[2019-11-28] MEDS: DICYCLOMINE HCL LIQUID 10 MG/5 ML UDC PO ONE (20:22)
[2019-11-28] MEDS: PANTOPRAZOLE 40 MG TABEC PO ONE (20:22)
[2019-11-28] MEDS: ALUMINUM HYD/MAG/SIMETHICONE 30 ML UDC PO ONE (20:24)
[2019-11-28] MEDS: LIDOCAINE VISCOUS 2% 20 ML UDC PO ONE (20:25)
--- NOTE | 2019-11-28 20:33 | NUR ---
Patient discharged with v/s stable. Written and verbal after care instructions given and explained. Patient alert, oriented and verbalized understanding of instructions. Ambulatory with steady gait. All questions addressed prior to discharge. ID band removed. Patient advised to follow up with PMD. Rx of PROTONIX given. Patient educated on indication of medication including possible reaction and side effects. Opportunity to ask questions provided and answered.
== END 2019-11-28 20:33 | disposition home or self-care (01) ==
LOC: MED 19:26
DX: K21.9 Gastro-esophageal reflux disease without esophagitis (principal); R03.0 Elevated blood-pressure reading, without diagnosis of hypertension; J45.909 Unspecified asthma, uncomplicated; Z88.8 Allergy status to other drugs, medicaments and biological substances; Z91.013 Allergy to seafood
CPT/HCPCS: 93005; 99283

== ENCOUNTER 2019-11-30 20:49 | Emergency (ER) | payer OTHER, MEDICAID ==
[~2019-11-30] VITALS: Ht 172.7 cm; Wt 93.0 kg
[2019-11-30 20:54] VITALS: BP 118/77
[2019-11-30 21:33] VITALS: BP 118/77
== END 2019-11-30 21:33 | disposition home or self-care (01) ==
LOC: MED 20:49
DX: R07.9 Chest pain, unspecified (principal); J45.909 Unspecified asthma, uncomplicated; Z88.6 Allergy status to analgesic agent; Z91.013 Allergy to seafood
CPT/HCPCS: 93005; 99283

== ENCOUNTER 2019-12-10 19:37 | Emergency (ER) | payer OTHER, MEDICAID ==
[~2019-12-10] VITALS: Ht 177.8 cm; Wt 86.2 kg
[2019-12-10 20:00] VITALS: BP 161/99
[2019-12-10 20:03] VITALS: BP 161/99
--- NOTE | 2019-12-10 20:03 | NUR ---
triaged and sent to chair kym
--- NOTE | 2019-12-10 20:03 | NUR ---
see complete assessment.
--- NOTE | 2019-12-10 20:23 | NUR ---
PT UP FOR DISCHARGE. PT LEFT WITHOUT DISCHARGE INSTRUCTIONS AND RX.
== END 2019-12-10 20:23 | disposition home or self-care (01) ==
LOC: MED 19:37
DX: R19.7 Diarrhea, unspecified (principal); J45.909 Unspecified asthma, uncomplicated; F15.10 Other stimulant abuse, uncomplicated; Z88.1 Allergy status to other antibiotic agents; Z91.013 Allergy to seafood; Z76.0 Encounter for issue of repeat prescription
CPT/HCPCS: 99281

== ENCOUNTER 2019-12-11 06:55 | Emergency (ER) | payer OTHER, MEDICAID ==
[~2019-12-11] VITALS: Ht 172.7 cm; Wt 88.0 kg
[2019-12-11 07:08] VITALS: BP 138/78
--- NOTE | 2019-12-11 07:27 | NUR ---
PATIENT LEFT WITHOUT BEING SEEN AT THIS TIME, LY MADE AWARE
[2019-12-11 07:28] VITALS: BP 138/78
== END 2019-12-11 07:27 | disposition left against medical advice (07) ==
LOC: MED 06:55
DX: R30.0 Dysuria (principal); Z53.21 Procedure and treatment not carried out due to patient leaving prior to being seen by health care provider

== ENCOUNTER 2020-01-01 22:00 | Emergency (ER) | payer OTHER, MEDICAID ==
[~2020-01-01] VITALS: Ht 175.3 cm; Wt 90.3 kg
[2020-01-01 22:09] VITALS: BP 106/61
[2020-01-02 00:01] VITALS: BP 108/69
[2020-01-02] MEDS: ALUMINUM HYD/MAG/SIMETHICONE 30 ML UDC PO ONE (00:10)
== END 2020-01-02 00:09 | disposition home or self-care (01) ==
LOC: MED 22:00
DX: K29.20 Alcoholic gastritis without bleeding (principal); F10.120 Alcohol abuse with intoxication, uncomplicated; J45.909 Unspecified asthma, uncomplicated; Z59.0 Homelessness; Z88.8 Allergy status to other drugs, medicaments and biological substances; Z91.013 Allergy to seafood
CPT/HCPCS: 99282

== ENCOUNTER 2020-01-04 04:49 | Emergency (ER) | payer OTHER, MEDICAID ==
[~2020-01-04] VITALS: Ht 175.3 cm; Wt 93.0 kg
[2020-01-04 04:56] VITALS: BP 130/89
--- NOTE | 2020-01-04 05:00 | NUR ---
PT AMBULATTED TO [facility] WITH STEADY GAIT.
--- NOTE | 2020-01-04 05:05 | NUR ---
cut cleaned and dermabond applied. band aid applied.
[2020-01-04 05:09] VITALS: BP 130/89
== END 2020-01-04 05:09 | disposition home or self-care (01) ==
LOC: MED 04:49
DX: S61.412A Laceration without foreign body of left hand, initial encounter (principal); J45.909 Unspecified asthma, uncomplicated; Z91.013 Allergy to seafood; Z88.1 Allergy status to other antibiotic agents; W26.9XXA Contact with unspecified sharp object(s), initial encounter; Y93.89 Activity, other specified; Y92.89 Other specified places as the place of occurrence of the external cause; Y99.8 Other external cause status
CPT/HCPCS: 12001; 99282

== ENCOUNTER 2020-01-06 02:05 | Emergency (ER) | payer OTHER, MEDICAID ==
[~2020-01-06] VITALS: Ht 175.3 cm; Wt 93.9 kg
[2020-01-06 02:32] VITALS: BP 107/71
--- NOTE | 2020-01-06 02:37 | NUR ---
PT AMBULATED TO ER BED 3 W/ STEADY GAIT.
--- NOTE | 2020-01-06 02:42 | NUR ---
C/O "NOT FEELING WELL" X 10 HRS PMH: DENIES ALLERGIES: IODINE, SHELLFISH
[2020-01-06 03:15] VITALS: BP 107/71
== END 2020-01-06 03:15 | disposition home or self-care (01) ==
LOC: MED 02:05
DX: R11.2 Nausea with vomiting, unspecified (principal); R19.7 Diarrhea, unspecified
CPT/HCPCS: 99283

== ENCOUNTER 2020-01-11 05:13 | Emergency (ER) | payer OTHER, MEDICAID ==
--- NOTE | 2020-01-11 05:28 | NUR ---
PATIENT LEFT WITHOUT BEING SEEN BY DR. Maria. NO FURTHER CARE PROVIDED FOR PATIENT.
== END 2020-01-11 05:33 | disposition left against medical advice (07) ==
LOC: MED 05:13
DX: J45.909 Unspecified asthma, uncomplicated (principal); Z88.8 Allergy status to other drugs, medicaments and biological substances; Z91.013 Allergy to seafood; Z53.21 Procedure and treatment not carried out due to patient leaving prior to being seen by health care provider

== ENCOUNTER 2020-01-13 20:41 | Emergency (ER) | payer OTHER, MEDICAID ==
[~2020-01-13] VITALS: Ht 177.8 cm; Wt 95.3 kg
[2020-01-13 21:34] VITALS: BP 142/75
--- NOTE | 2020-01-13 21:38 | NUR ---
triaged and Dr. Jones at triage for MSE.
--- NOTE | 2020-01-13 21:44 | NUR ---
Patient discharged with v/s stable. Written and verbal after care instructions given and explained. Patient alert, oriented and verbalized understanding of instructions. Ambulatory with steady gait. All questions addressed prior to discharge. ID band removed. Patient advised to follow up with PMD. Rx of robaxin given. Patient educated on indication of medication including possible reaction and side effects. Opportunity to ask questions provided and answered.
== END 2020-01-13 21:44 | disposition home or self-care (01) ==
LOC: MED 20:41
DX: T14.8XXA Other injury of unspecified body region, initial encounter (principal); R07.81 Pleurodynia; R51.9 Headache, unspecified; R55 Syncope and collapse; J45.909 Unspecified asthma, uncomplicated; W17.89XA Other fall from one level to another, initial encounter; Y93.89 Activity, other specified; Y92.89 Other specified places as the place of occurrence of the external cause; Y99.8 Other external cause status
CPT/HCPCS: 99283

== ENCOUNTER 2020-01-23 20:07 | Emergency (ER) | payer OTHER, MEDICAID ==
[~2020-01-23] VITALS: Ht 175.3 cm; Wt 90.7 kg
[2020-01-23 20:15] VITALS: BP 110/65
--- NOTE | 2020-01-23 20:23 | NUR ---
PT TAKEN TO CHAIR A
--- NOTE | 2020-01-23 20:59 | NUR ---
Dr. Suresh examining patient.
--- NOTE | 2020-01-23 21:00 | NUR ---
Dr. Suresh at bedside.
--- NOTE | 2020-01-23 21:12 | NUR ---
see complete assessment.
--- NOTE | 2020-01-23 21:12 | NUR ---
pt taken to xr via w/c
[2020-01-23 22:18] LABS: BASOPHILS # (AUTO) 0.1 K/uL (0.00-0.22); BASOPHILS % (AUTO) 1.9 % (0.0-2.0); EOSINOPHILS # (AUTO) 0.1 K/uL (0-0.4); EOSINOPHILS % (AUTO) 1.7 % (0.0-4.0); HEMATOCRIT 42.6 % (36-52); HEMOGLOBIN 14.2 g/dL (12.0-18.0); LYMPHOCYTES # (AUTO) 1.6 K/uL (2.0-11.5); LYMPHOCYTES % (AUTO) 29.8 % (20.5-51.1); MEAN CORPUSCULAR HEMOGLOBIN 31 pg (27-31); MEAN CORPUSCULAR HGB CONC 33 g/dL (33-37); MEAN CORPUSCULAR VOLUME 94.1 fL (80-94); MONOCYTES # (AUTO) 0.4 K/uL (0.8-1.0); MONOCYTES % (AUTO) 7.3 % (1.7-9.3); NEUTROPHILS # (AUTO) 3.2 K/uL (1.8-7.7); NEUTROPHILS % (AUTO) 59.3 % (42.2-75.2); PLATELET COUNT (AUTO) 219 K/uL (140-450); RED BLOOD CELL COUNT(AUTO) 4.53 MIL/uL (4.20-6.10); RED CELL DISTRIBUTION WIDTH 14.1 % (11.6-13.7); WHITE BLOOD COUNT (AUTO) 5.5 K/uL (4.8-10.8)
[2020-01-23 22:20] VITALS: BP 125/70
--- NOTE | 2020-01-23 22:23 | NUR ---
Pt sitting in chair A. no further needs at this time.
[2020-01-23 22:31] LABS: ALBUMIN 3.3 g/dL (3.4-5.0); ANION GAP 14.1 (8-16); CARBON DIOXIDE 25.6 mmol/L (21-32); CREATININE 1.1 mg/dL (0.6-1.3); POTASSIUM 3.7 mmol/L (3.5-5.1); TOTAL BILIRUBIN 0.2 mg/dL (0.0-1.0)
[2020-01-23] MEDS ORDERED: ACETAMINOPHEN EXTRA STRENGTH 500 MG TAB PO ONE (22:35)
[2020-01-23] MEDS ORDERED: ASPIRIN 81 MG TAB.CHEW PO ONE (22:35)
--- NOTE | 2020-01-23 22:55 | NUR ---
meds given per Dr. Suresh orders.
== END 2020-01-23 23:36 | disposition home or self-care (01) ==
LOC: MED 20:07
DX: R07.9 Chest pain, unspecified (principal)
CPT/HCPCS: 36415; 71045; 80053; 84484; 85025; 93005; 99285

== ENCOUNTER 2020-01-28 18:30 | Emergency (ER) | payer OTHER, MEDICAID ==
[~2020-01-28] VITALS: Ht 175.3 cm; Wt 93.0 kg
[2020-01-28 18:51] VITALS: BP 120/90
--- NOTE | 2020-01-28 20:10 | NUR ---
PT SEEN AND EVALUATED BY VIJAYA HURTADO. NO NURSING CARE PROVIDED FOR THIS PATIENT.
--- NOTE | 2020-01-28 20:22 | NUR ---
Patient discharged with v/s stable. Written and verbal after care instructions given and explained. Patient alert, oriented and verbalized understanding of instructions. Ambulatory with steady gait. All questions addressed prior to discharge. ID band removed. Patient advised to follow up with PMD. Rx of LORATADINE, PROMETHEZINE, AND CORTIZONE given. Patient educated on indication of medication including possible reaction and side effects. Opportunity to ask questions provided and answered.
== END 2020-01-28 20:22 | disposition home or self-care (01) ==
LOC: MED 18:30
DX: R05 Cough (principal); L98.9 Disorder of the skin and subcutaneous tissue, unspecified; J45.909 Unspecified asthma, uncomplicated; Z88.8 Allergy status to other drugs, medicaments and biological substances; Z91.013 Allergy to seafood
CPT/HCPCS: 99283

== ENCOUNTER 2020-01-29 03:10 | Emergency (ER) | payer OTHER, MEDICAID ==
[~2020-01-29] VITALS: Ht 175.3 cm; Wt 90.7 kg
[2020-01-29 03:15] VITALS: BP 132/90
--- NOTE | 2020-01-29 03:24 | NUR ---
Dr. Hicks examining patient.
--- NOTE | 2020-01-29 03:28 | NUR ---
PT TAKEN TO BED 6
[2020-01-29] MEDS ORDERED: ONDANSETRON 4 MG/2 ML VIAL IVP ONE (03:30)
[2020-01-29] MEDS ORDERED: NACL 0.9% 1,000 ML IV ONE (03:30)
[2020-01-29] MEDS ORDERED: KETOROLAC 30 MG/ML VIAL IVP ONE (03:30)
--- NOTE | 2020-01-29 03:30 | NUR ---
COVERING PRIMARY RN FOR LUNCH RELIEF--SEE COMPLETE ASSESSMENT FOR ADDITIONAL INFORMATION
--- NOTE | 2020-01-29 03:33 | NUR ---
20G IV TO RT AC STARTED. BLOOD COLLECTED VIA IV START. IV FLUSHED AND PATENT
[2020-01-29 03:44] LABS: BASOPHILS # (AUTO) 0.1 K/uL (0.00-0.22); BASOPHILS % (AUTO) 0.9 % (0.0-2.0); EOSINOPHILS % (AUTO) 0.3 % (0.0-4.0); HEMATOCRIT 45.8 % (36-52); HEMOGLOBIN 15.2 g/dL (12.0-18.0); LYMPHOCYTES # (AUTO) 1.1 K/uL (2.0-11.5); LYMPHOCYTES % (AUTO) 11.9 % (20.5-51.1); MEAN CORPUSCULAR HEMOGLOBIN 31 pg (27-31); MEAN CORPUSCULAR HGB CONC 33 g/dL (33-37); MEAN CORPUSCULAR VOLUME 93.7 fL (80-94); MONOCYTES # (AUTO) 0.4 K/uL (0.8-1.0); MONOCYTES % (AUTO) 4.3 % (1.7-9.3); NEUTROPHILS # (AUTO) 7.5 K/uL (1.8-7.7); NEUTROPHILS % (AUTO) 82.6 % (42.2-75.2); PLATELET COUNT (AUTO) 246 K/uL (140-450); RED BLOOD CELL COUNT(AUTO) 4.89 MIL/uL (4.20-6.10); RED CELL DISTRIBUTION WIDTH 14.5 % (11.6-13.7); WHITE BLOOD COUNT (AUTO) 9.1 K/uL (4.8-10.8)
--- NOTE | 2020-01-29 03:49 | NUR ---
Pt recieved resting in bed with no acute distress noted. VSS, NSR noted to monitor. IVF infusing with no S/Sx infiltration. Will continue to monitor.
[2020-01-29 03:55] LABS: ALBUMIN 4.2 g/dL (3.4-5.0); CARBON DIOXIDE 23.6 mmol/L (21-32); CREATININE 1.1 mg/dL (0.6-1.3); POTASSIUM 3.6 mmol/L (3.5-5.1); TOTAL BILIRUBIN 0.4 mg/dL (0.0-1.0)
--- NOTE | 2020-01-29 04:48 | NUR ---
No acute change to pt condition, no nausea or vomiting noted to this time.
[2020-01-29 05:02] VITALS: BP 128/88
--- NOTE | 2020-01-29 05:03 | NUR ---
ACI given to pt with verbal understanding. IV lock D/C'd withcath intact and bleeding controlled. Pt ambulated off unit with all belongings and steady gait.
== END 2020-01-29 05:03 | disposition home or self-care (01) ==
LOC: MED 03:10
DX: K52.9 Noninfective gastroenteritis and colitis, unspecified (principal); R03.0 Elevated blood-pressure reading, without diagnosis of hypertension; J45.909 Unspecified asthma, uncomplicated; Z88.8 Allergy status to other drugs, medicaments and biological substances; Z91.013 Allergy to seafood
CPT/HCPCS: 36415; 80053; 83690; 85025; 96361; 96374; 96375; 99284; J1885; J2405; J7030

== ENCOUNTER 2020-02-07 20:20 | Emergency (ER) | payer OTHER, MEDICAID ==
[~2020-02-07] VITALS: Ht 175.3 cm; Wt 90.3 kg
--- NOTE | 2020-02-07 20:32 | NUR ---
PT AMBULATED TO LOBBY WITH STEADY GAIT. NO RESPIRATORY DISTRESS NOTED. RESPIRATIONS ARE EVEN AND UNLABORED.
[2020-02-07 20:35] VITALS: BP 136/87
--- NOTE | 2020-02-07 22:23 | NUR ---
PT AMBULATED TO CHAIR A
[2020-02-07 22:25] VITALS: BP 107/63
--- NOTE | 2020-02-07 22:25 | NUR ---
SEE COMPLETE ASSESSMENT
[2020-02-07] MEDS ORDERED: predniSONE 20 MG TAB PO ONE (22:35)
== END 2020-02-07 23:38 | disposition home or self-care (01) ==
LOC: MED 20:20
DX: T78.40XA Allergy, unspecified, initial encounter (principal); J45.909 Unspecified asthma, uncomplicated; Z88.1 Allergy status to other antibiotic agents; Z91.013 Allergy to seafood; X58.XXXA Exposure to other specified factors, initial encounter
CPT/HCPCS: 99283; J7512; Q0163

== ENCOUNTER 2020-02-16 23:11 | Emergency (ER) | payer OTHER, MEDICAID ==
[~2020-02-16] VITALS: Ht 175.3 cm; Wt 90.3 kg
[2020-02-16 23:15] VITALS: BP 134/90
--- NOTE | 2020-02-16 23:15 | NUR ---
TO CHAIR B AMBULATORY
--- NOTE | 2020-02-16 23:25 | NUR ---
PATIENT PRESENTS TO ED WITH INSOMNIA. PT STATES HE HASNT SLEPT IN 4 DAYS. DENIES N/V/D; SKIN IS PINK/WARM/DRY; AAOX4 WITH EVEN AND STEADY GAIT; LUNGS CLEAR BL; HR EVEN AND REGULAR; PT DENIES ANY FEVER, CP, SOB, OR COUGH AT THIS TIME; PATIENT STATES PAIN OF 0/10 AT THIS TIME; VSS; PATIENT POSITIONED FOR COMFORT; HOB ELEVATED; BEDRAILS UP X2; BED DOWN. ER MD MADE AWARE OF PT STATUS.
[2020-02-16] MEDS ORDERED: IBUPROFEN 400 MG TAB PO ONE (23:55)
[2020-02-17 01:32] VITALS: BP 134/90
== END 2020-02-17 01:32 | disposition home or self-care (01) ==
LOC: MED 23:11
DX: G47.00 Insomnia, unspecified (principal); R51.9 Headache, unspecified
CPT/HCPCS: 99282

== ENCOUNTER 2020-02-29 18:27 | Emergency (ER) | payer OTHER, MEDICAID ==
[~2020-02-29] VITALS: Ht 175.3 cm; Wt 90.7 kg
[2020-02-29 23:00] VITALS: BP 135/73
--- NOTE | 2020-02-29 23:03 | NUR ---
TO LOBBY A/W BED AMBULATORY
[2020-02-29 23:05] VITALS: BP 135/73
--- NOTE | 2020-02-29 23:13 | NUR ---
Dr. Reilly examining patient.
== END 2020-02-29 23:36 | disposition home or self-care (01) ==
LOC: MED 18:27
DX: R19.7 Diarrhea, unspecified (principal); J45.909 Unspecified asthma, uncomplicated; Z88.8 Allergy status to other drugs, medicaments and biological substances; Z91.013 Allergy to seafood
CPT/HCPCS: 99281

== ENCOUNTER 2020-04-12 03:48 | Emergency (ER) | payer OTHER, MEDICAID ==
[~2020-04-12] VITALS: Ht 175.3 cm; Wt 81.2 kg
[2020-04-12 04:14] VITALS: BP 129/98
[2020-04-12 04:50] VITALS: BP 129/98
== END 2020-04-12 04:50 | disposition home or self-care (01) ==
LOC: MED 03:48
DX: J06.9 Acute upper respiratory infection, unspecified (principal); J45.909 Unspecified asthma, uncomplicated; Z91.013 Allergy to seafood; Z88.8 Allergy status to other drugs, medicaments and biological substances
CPT/HCPCS: 71045; 99283

== ENCOUNTER 2020-04-22 20:10 | Emergency (ER) | payer OTHER, MEDICAID ==
[~2020-04-22] VITALS: Ht 175.3 cm; Wt 90.3 kg
[2020-04-22 20:10] VITALS: BP 153/96
--- NOTE | 2020-04-22 20:15 | NUR ---
PATIENT BIBA FOR C/O ANXIETY S/P INGESTING UNKNOWN DRUG. PATIENT PRESENTS ALERT AND ORIENTED. PATEITN IS CALM AND COOPERATIVE WITH ASSESSMENT. PER PATIENT, "I'VE BEEN HAVING A REALLY HARD TIME LATELY, BEING HOMELESS AND HAVING NO SUPPORT IS STRESSFUL AND I JUST TOOK DRUGS TO TRY AND FEEL BETTER." PATIENT DENIES SI/HI IDEATIONS. PATIENT DENIES VISUAL OR AUDITORY HALLUCINATIONS. MEDHX: SCHIZOPHRNIA, ASTHMA ALLERGIES: IODINE, SHELLFISH
--- NOTE | 2020-04-22 20:15 | NUR ---
PATIENT TAKEN TO BED 12 WITH STEADY GAIT.
--- NOTE | 2020-04-22 20:26 | NUR ---
ERMD AT BEDSIDE EVALUATING PATIENT.
[2020-04-22] MEDS ORDERED: NACL 0.9% 500 ML IV ONE (20:30)
[2020-04-22] MEDS ORDERED: LORazepam 2 MG/ML VIAL IVP ONE (20:30)
--- NOTE | 2020-04-22 22:41 | NUR ---
PATIENT RESPONSIVE TO VERBAL STIMULI. PATIENT CALM WITH FLAT AFFECT. PATIENT REFUSED SANDWHICH AT THIS TIME. IV REMAINS PATIENT.
--- NOTE | 2020-04-22 23:16 | NUR ---
Patient appears to be resting comfortably in bed. Vital Signs within normal limits. Respirations even and unlabored.
--- NOTE | 2020-04-23 00:05 | NUR ---
IV removed, catheter intact and site benign. Applied folded 4x4 gauze and tape to stop bleeding.
--- NOTE | 2020-04-23 00:55 | NUR ---
PATIENT GIVEN HOMELESS RESOURCES AND FOOD PACKAGE. PATIENT REFUSED TRANSPORTATION RESOURCES.
--- NOTE | 2020-04-23 00:59 | NUR ---
Patient presented to facility under the influence of Unknown Substance. Patient is currently ambulatory with steady gait, able to walk unassisted. Positive gag reflex. Alert and oriented.
[2020-04-23 01:00] VITALS: BP 148/88
== END 2020-04-23 01:00 | disposition home or self-care (01) ==
LOC: MED 20:10
DX: F19.10 Other psychoactive substance abuse, uncomplicated (principal); F20.9 Schizophrenia, unspecified; J45.909 Unspecified asthma, uncomplicated; Z88.8 Allergy status to other drugs, medicaments and biological substances; Z91.013 Allergy to seafood
CPT/HCPCS: 96361; 96374; 99283; J2060; J7030

== ENCOUNTER 2020-06-06 20:52 | Emergency (ER) | payer OTHER, MEDICAID ==
[~2020-06-06] VITALS: Ht 175.3 cm; Wt 90.7 kg
[2020-06-06 21:00] VITALS: BP 130/90
--- NOTE | 2020-06-06 21:00 | NUR ---
TO BED AMBULATORY
--- NOTE | 2020-06-06 21:15 | NUR ---
Said examining patient.
--- NOTE | 2020-06-06 21:15 | NUR ---
C/O COUGH X 6 MONTHS. DENIES ANY CP, SOB, FEVER, PADILLA. LUBNG SOUNDS ARE RONCHI, CRACKLY BILAT LOWER BASES. 100& RA. VSS. A&OX4 PER PT BASELINE. ALLERGIES: IODINE, SHELLFISH.PMH: BRONCHITIS.
[2020-06-06] MEDS ORDERED: BENZONATATE 100 MG CAPLF PO PRN (21:25)
[2020-06-06] MEDS ORDERED: ALBUTEROL HFA MDI 90 MCG/ACTUATION 8 GM INH ONE (21:25)
--- NOTE | 2020-06-06 21:39 | NUR ---
X-Ray at bedside.
--- NOTE | 2020-06-06 21:46 | NUR ---
Respiratory Therapist at bedside for respiratory intervention.
[2020-06-06] MEDS ORDERED: PROM118S5 PO (22:34)
[2020-06-06 22:41] VITALS: BP 130/90
== END 2020-06-06 22:41 | disposition home or self-care (01) ==
LOC: MED 20:52
DX: R05 Cough (principal); R11.10 Vomiting, unspecified; J45.909 Unspecified asthma, uncomplicated; Z91.013 Allergy to seafood; Z88.8 Allergy status to other drugs, medicaments and biological substances
CPT/HCPCS: 71045; 94664; 99283

== ENCOUNTER 2020-06-10 23:13 | Emergency (ER) | payer OTHER, MEDICAID ==
[~2020-06-10] VITALS: Ht 175.3 cm; Wt 90.7 kg
[~2020-06-10 23:13] MED LIST: PROM118S5 PO
--- NOTE | 2020-06-10 23:19 | NUR ---
BIBA, AMBULATORY TO LOBBY TO A/W BED
[2020-06-10 23:24] VITALS: BP 140/90
--- NOTE | 2020-06-11 00:26 | NUR ---
Sim husain in [facility] - 06/11/[address] at [address] Ashford examining patient.
--- NOTE | 2020-06-11 00:27 | NUR ---
PT CALLED IN LOBBY AND OUTSIDE BY ERMD FOR SCREENING WITH NO ANSWER.
--- NOTE | 2020-06-11 00:45 | NUR ---
PT CALLED IN LOBBY AND OUTSIDE WITH NO ANSWER.
--- NOTE | 2020-06-11 00:50 | NUR ---
PT CALLED IN LOBBY AND OUTSIDE WITH NO ANSWER. PATIENT LEFT WITHOUT BEING SEEN BY DR. CALDERA. NO FURTHER CARE PROVIDED FOR PATIENT.
== END 2020-06-11 00:27 | disposition left against medical advice (07) ==
LOC: MED 23:13
DX: M79.10 Myalgia, unspecified site (principal); R11.2 Nausea with vomiting, unspecified; R05 Cough; Z53.21 Procedure and treatment not carried out due to patient leaving prior to being seen by health care provider

== ENCOUNTER 2020-07-07 23:52 | Emergency (ER) | payer OTHER, MEDICAID ==
[~2020-07-07] VITALS: Ht 175.3 cm; Wt 90.3 kg
--- NOTE | 2020-07-07 23:57 | NUR ---
PT AMBULATORY TO LOBBY.
[2020-07-07 23:58] VITALS: BP 143/102
[2020-07-08] MEDS ORDERED: NACL 0.9% 1,000 ML IV ONE ×2 (00:25)
[2020-07-08 01:19] VITALS: BP 143/102
--- NOTE | 2020-07-08 01:19 | NUR ---
PT REFUSED TO SIGN DISCHARGE PAPERWROK. HOMELESS MEAL PACKET GIVEN.
== END 2020-07-08 01:19 | disposition home or self-care (01) ==
LOC: MED 23:52
DX: F10.129 Alcohol abuse with intoxication, unspecified (principal); J45.909 Unspecified asthma, uncomplicated; Z91.013 Allergy to seafood; Z88.8 Allergy status to other drugs, medicaments and biological substances; Z79.899 Other long term (current) drug therapy
CPT/HCPCS: 81025; 99281; 99282

== ENCOUNTER 2020-08-02 22:06 | Emergency (ER) | payer OTHER, MEDICAID ==
[~2020-08-02] VITALS: Ht 167.6 cm; Wt 90.7 kg
[2020-08-02 22:10] VITALS: BP 144/99
--- NOTE | 2020-08-02 22:18 | NUR ---
pT ASKING AGGRESSIVE TOWARDS STAFF , STATING "WHY THEY FUCK ARE YOU ASKING ME QUESTIONS. YOU DON'T KNOW WHAT YOU'RE FUCKING TALKING ABOUT" PT ASKED TO WAIT IN ER LOBBY AT THIS TIME. NO ACUTE DISTRESS NOTED. VSS.
--- NOTE | 2020-08-03 | NUR ---
pt sleeping in lobby , rr even and unlabored, rise and fall of chest noted. VSS. No acute distress noted.
--- NOTE | 2020-08-03 02:42 | NUR ---
AUDIBLE SNORING HEARD, VISIBLE RISE AND FALL OF CHEST. VSS. NO ACUTE DISTRESS NOTED.
[2020-08-03] MEDS ORDERED: ACETAMINOPHEN EXTRA STRENGTH 500 MG TAB ONE (03:15)
--- NOTE | 2020-08-03 04:17 | NUR ---
pt d/c without signing paperwork. Dr. Ashford made aware.
== END 2020-08-03 04:17 | disposition home or self-care (01) ==
LOC: MED 22:06
DX: R06.02 Shortness of breath (principal); J45.909 Unspecified asthma, uncomplicated; Z79.899 Other long term (current) drug therapy; Z88.8 Allergy status to other drugs, medicaments and biological substances; Z91.013 Allergy to seafood
CPT/HCPCS: 99282

== ENCOUNTER 2020-09-02 09:16 | Inpatient (IN) | payer OTHER, MEDICAID, SELFPAY ==
[~2020-09-02] VITALS: Ht 177.8 cm; Wt 95.7 kg
[2020-09-02 09:24] VITALS: BP 163/113
[2020-09-02] MEDS ORDERED: NACL 0.9% 2,000 ML IV ONE (09:55)
[2020-09-02 10:38] LABS: BASOPHILS % (AUTO) 0.5 % (0.0-2.0); EOSINOPHILS % (AUTO) 0.1 % (0.0-4.0); HEMATOCRIT 45.7 % (36-52); HEMOGLOBIN 15.2 g/dL (12.0-18.0); LYMPHOCYTES # (AUTO) 1.5 K/uL (2.0-11.5); LYMPHOCYTES % (AUTO) 15.2 % (20.5-51.1); MEAN CORPUSCULAR HEMOGLOBIN 32 pg (27-31); MEAN CORPUSCULAR HGB CONC 33 g/dL (33-37); MEAN CORPUSCULAR VOLUME 95.6 fL (80-94); NEUTROPHILS # (AUTO) 7.2 K/uL (1.8-7.7); NEUTROPHILS % (AUTO) 74.2 % (42.2-75.2); PLATELET COUNT (AUTO) 188 K/uL (140-450); RED BLOOD CELL COUNT(AUTO) 4.78 MIL/uL (4.20-6.10); RED CELL DISTRIBUTION WIDTH 13.8 % (11.6-13.7); WHITE BLOOD COUNT (AUTO) 9.7 K/uL (4.8-10.8)
[2020-09-02 11:01] LABS: ALBUMIN 4.4 g/dL (3.4-5.0); ANION GAP 15.8 (8-16); CARBON DIOXIDE 25.1 mmol/L (21-32); CREATININE 1.2 mg/dL (0.6-1.3); POTASSIUM 3.9 mmol/L (3.5-5.1); TOTAL BILIRUBIN 1.6 mg/dL (0.0-1.0)
[2020-09-02 11:23] LABS: CKMB RELATIVE INDEX 0.7 (0.0-2.5); CREATINE KINASE MB 7.7 ng/mL (0-3.6)
[2020-09-02] MEDS ORDERED: NACL 0.9% 1,000 ML IV ONE (13:20)
[2020-09-02] MEDS ORDERED: KETOROLAC 30 MG/ML VIAL IVP ONE (14:15)
[2020-09-02 17:56] LABS: APPEARANCE,URINE CLEAR (CLEAR); BILIRUBIN,URINE NEGATIVE (NEGATIVE); BLOOD, URINE NEGATIVE (NEGATIVE); COLOR,URINE YELLOW (YELLOW); LEUKOCYTE ESTERASE ,URINE NEGATIVE (NEGATIVE); NITRITE, URINE NEGATIVE (NEGATIVE); UGLUCOSE NEGATIVE (NEGATIVE)
[2020-09-02 18:14] LABS: BARBITURATE, URINE NEGATIVE ng/ml (NEG <=200); BENZODIAZEPINE, URINE NEGATIVE ng/mL (NEG <=200); CANNABINOID, URINE NEGATIVE ng/mL (NEG <=50); COCAINE, URINE NEGATIVE ng/mL (NEG <=300); OPIATE, URINE NEGATIVE ng/mL (NEG <=2000); PHENCYCLIDINE SCREEN,URINE NEGATIVE ng/mL (NEG <=25)
[2020-09-02] MEDS ORDERED: guaiFENesin DM 200/20 MG-10 ML 10 ML UDC PO PRN (19:35)
[2020-09-02] MEDS ORDERED: HYDROcodone/APAP 7.5/325 MG 1 TAB PO PRN (19:35)
[2020-09-02] MEDS ORDERED: ZOLPIDEM 5 MG TAB PO PRN (19:35)
[2020-09-02] MEDS ORDERED: ONDANSETRON 4 MG/2 ML VIAL IM/IVP PRN (19:35)
[2020-09-02] MEDS ORDERED: POTASSIUM CHLORIDE 10 MEQ TABER PO PRN (19:35)
[2020-09-02] MEDS ORDERED: ACETAMINOPHEN 325 MG TAB PO PRN (19:35)
[2020-09-02] MEDS ORDERED: DOCUSATE SODIUM 100 MG GELCAP PO PRN (19:35)
[2020-09-02] MEDS: NACL 0.9% 1,000 ML IV SCH (21:10)
[2020-09-02 21:11] LABS: FREE T4 (FREE THYROXINE) 1.04 ng/dL (0.76-1.46); MAGNESIUM 2.3 mg/dL (1.8-2.4); PHOSPHORUS 4.2 mg/dL (2.5-4.9); THYROID STIMULATING HORMONE 0.54 uIU/mL (0.34-3.74)
[2020-09-02 21:15] LABS: PROTHROMBIN TIME 10.3 secs (10.8-13.4)
[2020-09-03] VITALS: BP 129/92
[2020-09-03] MEDS: NACL 0.9% 1,000 ML IV SCH ×5 (00:35→20:55)
[2020-09-03 04:00] VITALS: BP 123/87
[2020-09-03 05:56] LABS: ANION GAP 10.6 (8-16); CARBON DIOXIDE 25.2 mmol/L (21-32); CREATININE 0.8 mg/dL (0.6-1.3); POTASSIUM 3.8 mmol/L (3.5-5.1)
[2020-09-03 05:58] LABS: BASOPHILS % (AUTO) 0.3 % (0.0-2.0); EOSINOPHILS # (AUTO) 0.1 K/uL (0-0.4); EOSINOPHILS % (AUTO) 1.3 % (0.0-4.0); HEMATOCRIT 40.1 % (36-52); HEMOGLOBIN 13.3 g/dL (12.0-18.0); LYMPHOCYTES % (AUTO) 19.8 % (20.5-51.1); MEAN CORPUSCULAR HEMOGLOBIN 32 pg (27-31); MEAN CORPUSCULAR HGB CONC 33 g/dL (33-37); MEAN CORPUSCULAR VOLUME 95.5 fL (80-94); MONOCYTES # (AUTO) 0.5 K/uL (0.8-1.0); MONOCYTES % (AUTO) 9.5 % (1.7-9.3); NEUTROPHILS # (AUTO) 3.6 K/uL (1.8-7.7); NEUTROPHILS % (AUTO) 69.1 % (42.2-75.2); PLATELET COUNT (AUTO) 136 K/uL (140-450); RED CELL DISTRIBUTION WIDTH 13.8 % (11.6-13.7); WHITE BLOOD COUNT (AUTO) 5.2 K/uL (4.8-10.8)
[2020-09-03 08:00] VITALS: BP 109/63
[2020-09-03] MEDS: PANTOPRAZOLE 40 MG TABEC PO SCH (08:12)
[2020-09-03 16:00] VITALS: BP 126/65
[2020-09-04] VITALS: BP 123/90
[2020-09-04] MEDS: NACL 0.9% 1,000 ML IV SCH ×2 (01:59→07:35)
[2020-09-04 04:59] LABS: ANION GAP 14.8 (8-16); CREATININE 0.8 mg/dL (0.6-1.3); POTASSIUM 3.8 mmol/L (3.5-5.1)
[2020-09-04 05:09] LABS: BASOPHILS % (AUTO) 0.4 % (0.0-2.0); EOSINOPHILS # (AUTO) 0.1 K/uL (0-0.4); EOSINOPHILS % (AUTO) 1.5 % (0.0-4.0); HEMOGLOBIN 13.2 g/dL (12.0-18.0); LYMPHOCYTES % (AUTO) 18.9 % (20.5-51.1); MEAN CORPUSCULAR HEMOGLOBIN 32 pg (27-31); MEAN CORPUSCULAR HGB CONC 33 g/dL (33-37); MEAN CORPUSCULAR VOLUME 96.5 fL (80-94); MONOCYTES # (AUTO) 0.4 K/uL (0.8-1.0); MONOCYTES % (AUTO) 7.9 % (1.7-9.3); NEUTROPHILS # (AUTO) 3.9 K/uL (1.8-7.7); NEUTROPHILS % (AUTO) 71.3 % (42.2-75.2); PLATELET COUNT (AUTO) 147 K/uL (140-450); RED BLOOD CELL COUNT(AUTO) 4.14 MIL/uL (4.20-6.10); RED CELL DISTRIBUTION WIDTH 13.7 % (11.6-13.7); WHITE BLOOD COUNT (AUTO) 5.4 K/uL (4.8-10.8)
[2020-09-04 07:08] LABS: T4 (THYROXINE) 6.6 ug/dL (4.5-12.0)
[2020-09-04 08:00] VITALS: BP 118/87
[2020-09-04] MEDS: PANTOPRAZOLE 40 MG TABEC PO SCH (08:48)
[2020-09-04 10:33] VITALS: BP 118/87
== END 2020-09-04 11:30 | disposition home or self-care (01) | DRG 557 ==
LOC: MED 09:16 → MTU 14:50 → MMU 19:40
PROVIDERS: ADMIT Family Medicine; ATTEND Family Medicine
DX: M62.82 Rhabdomyolysis (principal); G92 Toxic encephalopathy; E86.0 Dehydration; E78.2 Mixed hyperlipidemia; F15.10 Other stimulant abuse, uncomplicated; F17.210 Nicotine dependence, cigarettes, uncomplicated; Z20.822 Contact with and (suspected) exposure to COVID-19; J45.909 Unspecified asthma, uncomplicated; K70.9 Alcoholic liver disease, unspecified; Y90.9 Presence of alcohol in blood, level not specified; F10.10 Alcohol abuse, uncomplicated; Z59.0 Homelessness; Z91.041 Radiographic dye allergy status; Z91.013 Allergy to seafood
CPT/HCPCS: 36415; 71045; 80048; 80053; 80305; 81003; 82150; 82550; 82553; 83036; 83690; 83735; 83880; 84100; 84436; 84439; 84443; 84479; 84484; 85025; 85610; 85730; 87081; 93005; 96361; 96374; 99285; J1885; J7030

== ENCOUNTER 2020-09-19 17:23 | Emergency (ER) | payer OTHER, MEDICAID ==
[~2020-09-19] VITALS: Ht 175.3 cm; Wt 94.3 kg
[2020-09-19] MEDS ORDERED: SUCRALFATE 1 GM TAB PO STA (17:36)
[2020-09-19 17:37] VITALS: BP 145/102
[2020-09-19] MEDS ORDERED: FAMOTIDINE 20 MG TAB PO ONE (17:40)
[2020-09-19] MEDS ORDERED: ONDANSETRON 4 MG ODT PO ONE (17:40)
[2020-09-19] MEDS ORDERED: FAMO40TA12 PO (17:46)
--- NOTE | 2020-09-19 17:59 | NUR ---
34 Y/O M BIB SELF FROM HOME, C/O HERNIA RECHECK STATES HE FEELS THAT THE BUMP IS GETTING BIGGER. DENIES PAIN, N/V/D. SKIN IS PINK/WARM/DRY; AAOX4 WITH EVEN AND STEADY GAIT; LUNGS CLEAR BL; HR EVEN AND REGULAR; PT DENIES ANY FEVER, CP, SOB, OR COUGH AT THIS TIME; PATIENT STATES PAIN OF 0/10 AT THIS TIME; VSS; PATIENT POSITIONED FOR COMFORT; HOB ELEVATED; BEDRAILS UP X2; BED DOWN. ER MD MADE AWARE OF PT STATUS. PMH: ASTHMA, BRONCHITIS, GERD ALLERGY: SHELLFISH, IODINE
[2020-09-19 18:04] LABS: EOSINOPHILS # (AUTO) 0.2 K/uL (0-0.4); EOSINOPHILS % (AUTO) 2.9 % (0.0-4.0); HEMATOCRIT 43.1 % (36-52); HEMOGLOBIN 14.2 g/dL (12.0-18.0); LYMPHOCYTES # (AUTO) 1.2 K/uL (2.0-11.5); LYMPHOCYTES % (AUTO) 18.6 % (20.5-51.1); MEAN CORPUSCULAR HEMOGLOBIN 31 pg (27-31); MEAN CORPUSCULAR HGB CONC 33 g/dL (33-37); MEAN CORPUSCULAR VOLUME 94.4 fL (80-94); MONOCYTES # (AUTO) 0.4 K/uL (0.8-1.0); MONOCYTES % (AUTO) 5.5 % (1.7-9.3); NEUTROPHILS # (AUTO) 4.7 K/uL (1.8-7.7); PLATELET COUNT (AUTO) 215 K/uL (140-450); RED BLOOD CELL COUNT(AUTO) 4.57 MIL/uL (4.20-6.10); RED CELL DISTRIBUTION WIDTH 13.9 % (11.6-13.7); WHITE BLOOD COUNT (AUTO) 6.4 K/uL (4.8-10.8)
[2020-09-19 18:17] LABS: ALBUMIN 4.2 g/dL (3.4-5.0); ANION GAP 12.3 (8-16); CARBON DIOXIDE 28.7 mmol/L (21-32); CREATININE 1.1 mg/dL (0.6-1.3); TOTAL BILIRUBIN 0.4 mg/dL (0.0-1.0)
[2020-09-19 18:42] VITALS: BP 145/102
--- NOTE | 2020-09-19 18:43 | NUR ---
Patient discharged with v/s stable. Written and verbal after care instructions given and explained. Patient alert, oriented and verbalized understanding of instructions. Ambulatory with steady gait. All questions addressed prior to discharge. ID band removed. Patient advised to follow up with PMD. Rx of FAMOTIDINE given. Patient educated on indication of medication including possible reaction and side effects. Opportunity to ask questions provided and answered.
== END 2020-09-19 18:43 | disposition home or self-care (01) ==
LOC: MED 17:23
DX: K21.9 Gastro-esophageal reflux disease without esophagitis (principal); K42.9 Umbilical hernia without obstruction or gangrene; J45.909 Unspecified asthma, uncomplicated; Z88.8 Allergy status to other drugs, medicaments and biological substances; Z91.013 Allergy to seafood
CPT/HCPCS: 36415; 80053; 83690; 85025; 99284; Q0162

== ENCOUNTER 2020-09-23 18:11 | Emergency (ER) | payer OTHER, MEDICAID ==
[~2020-09-23] VITALS: Ht 175.3 cm; Wt 93.6 kg
[~2020-09-23 18:11] MED LIST changes: +FAMO40TA12 PO; -PROM118S5 PO
[2020-09-23 18:41] VITALS: BP 156/90
--- NOTE | 2020-09-23 18:58 | NUR ---
SEEN AND EXAMINED BY LY WITH ORDERS AND CARRIED OUT
[2020-09-23] MEDS ORDERED: ONDANSETRON 4 MG ODT PO ONE (19:00)
[2020-09-23] MEDS ORDERED: ACETAMINOPHEN EXTRA STRENGTH 500 MG TAB PO ONE (19:00)
--- NOTE | 2020-09-23 19:30 | NUR ---
MEDICATED PER ERMDS ORDER, TOLERATED WELL
[2020-09-23] MEDS ORDERED: DIPH25TA53 PO (20:14)
[2020-09-23] MEDS ORDERED: ACET-10509 PO (20:14)
[2020-09-23] MEDS ORDERED: ONDA-24 SL (20:14)
[2020-09-23 21:30] VITALS: BP 140/78
--- NOTE | 2020-09-23 21:30 | NUR ---
Patient discharged with v/s stable. Written and verbal after care instructions given and explained. Patient alert, oriented and verbalized understanding of instructions. Ambulatory with steady gait. All questions addressed prior to discharge. ID band removed. Patient advised to follow up with PMD. Rx of TYLENOL 500MG, BENADRY, ZOFRAN ODT given. Patient educated on indication of medication including possible reaction and side effects. Opportunity to ask questions provided and answered.
== END 2020-09-23 21:30 | disposition home or self-care (01) ==
LOC: MED 18:11
DX: R51.9 Headache, unspecified (principal); G47.00 Insomnia, unspecified; R11.0 Nausea; J45.909 Unspecified asthma, uncomplicated; Z88.8 Allergy status to other drugs, medicaments and biological substances; Z91.013 Allergy to seafood; Z79.899 Other long term (current) drug therapy
CPT/HCPCS: 99283; Q0162

== ENCOUNTER 2020-10-12 00:10 | Emergency (ER) | payer OTHER, MEDICAID ==
[~2020-10-12] VITALS: Ht 175.3 cm; Wt 90.3 kg
[~2020-10-12 00:10] MED LIST changes: +ACET-10509 PO; +DIPH25TA53 PO; +ONDA-24 SL
[2020-10-12 00:30] VITALS: BP 150/90
--- NOTE | 2020-10-12 00:33 | NUR ---
TO LOBBY A/W BED AMBULATORY
[2020-10-12] MEDS ORDERED: ONDA-24 SL (00:35)
[2020-10-12] MEDS ORDERED: PANTOPRAZOLE 40 MG TABEC PO ONE (00:40)
[2020-10-12] MEDS ORDERED: ONDANSETRON 4 MG ODT PO ONE (00:40)
--- NOTE | 2020-10-12 00:40 | NUR ---
MEDICATED PER ERMDS ORDER, TOLERATED WELL
[2020-10-12 01:10] VITALS: BP 150/90
--- NOTE | 2020-10-12 01:10 | NUR ---
Patient discharged with v/s stable. Written and verbal after care instructions given and explained. Patient alert, oriented and verbalized understanding of instructions. Ambulatory with steady gait. All questions addressed prior to discharge. ID band removed. Patient advised to follow up with PMD. Rx of ZOFRAN ODT given. Patient educated on indication of medication including possible reaction and side effects. Opportunity to ask questions provided and answered.
== END 2020-10-12 01:10 | disposition home or self-care (01) ==
LOC: MED 00:10
DX: R11.0 Nausea (principal); R10.9 Unspecified abdominal pain; J45.909 Unspecified asthma, uncomplicated; Z91.013 Allergy to seafood; Z88.8 Allergy status to other drugs, medicaments and biological substances; Z79.899 Other long term (current) drug therapy
CPT/HCPCS: 99283; Q0162

== ENCOUNTER 2020-10-12 04:40 | Emergency (ER) | payer OTHER, MEDICAID ==
[~2020-10-12] VITALS: Ht 175.3 cm; Wt 90.3 kg
[2020-10-12 05:00] VITALS: BP 158/90
[2020-10-12] MEDS ORDERED: ONDANSETRON 4 MG/2 ML VIAL IM ONE (05:00)
[2020-10-12] MEDS ORDERED: PROCHLORPERAZINE 10 MG/2 ML VIAL IM ONE (05:00)
--- NOTE | 2020-10-12 05:00 | NUR ---
TO CHAIR B AMBULATORY
[2020-10-12 05:10] VITALS: BP 158/90
--- NOTE | 2020-10-12 05:10 | NUR ---
SEEN AND EXAMINED BY ERMD, WITH ORDERS.
--- NOTE | 2020-10-12 05:15 | NUR ---
PATIENT REFUSED IM MEDICATIONS, ERMD NOTED.
--- NOTE | 2020-10-12 05:30 | NUR ---
HE REFUSED BLOOD DRAW , ERMD NOTED
--- NOTE | 2020-10-12 05:50 | NUR ---
DR Humphrey HESTER TALKED TO HIM AND WANTS TO LEAVE NOW. HES ASKING FOR A BUS PASS.
--- NOTE | 2020-10-12 06:03 | NUR ---
PATIENT ELOPED FROM FACILITY. DISCHARGE INSTRUCTIONS NOT GIVEN TO PATIENT. DR. HESTER NOTIFIED.
== END 2020-10-12 06:03 | disposition left against medical advice (07) ==
LOC: MED 04:40
DX: R11.2 Nausea with vomiting, unspecified (principal); R10.9 Unspecified abdominal pain; J45.909 Unspecified asthma, uncomplicated; Z79.899 Other long term (current) drug therapy; Z91.018 Allergy to other foods; Z88.8 Allergy status to other drugs, medicaments and biological substances
CPT/HCPCS: 99281; J2405; J0780

== ENCOUNTER → 2020-12-26 05:13 | Emergency (ER) | payer OTHER, MEDICAID ==
[~2020-12-26 05:13] MED LIST changes: +METH-1681 PO
--- NOTE | 2020-12-26 05:30 | NUR ---
patient call to triage, no response PATIENT LEFT WITHOUT BEING SEEN BY DR. morales. NO FURTHER CARE PROVIDED FOR PATIENT.
--- NOTE | 2020-12-26 05:40 | NUR ---
called for the second time , no response
--- NOTE | 2020-12-26 05:45 | NUR ---
called for the third time , no response
== END | disposition left against medical advice (07) ==
LOC: MED 05:13
DX: Z53.21 Procedure and treatment not carried out due to patient leaving prior to being seen by health care provider (principal)

== ENCOUNTER 2020-12-26 12:54 | Emergency (ER) | payer OTHER, MEDICAID ==
[~2020-12-26] VITALS: Ht 175.3 cm; Wt 91.2 kg
[~2020-12-26 12:54] MED LIST changes: -METH-1681 PO
[2020-12-26 13:11] VITALS: BP 168/104
--- NOTE | 2020-12-26 13:18 | NUR ---
PT SENT TO LOBBY
[2020-12-26] MEDS ORDERED: diazePAM 5 MG TAB PO ONE (13:40)
[2020-12-26] MEDS ORDERED: KETOROLAC 30 MG/ML VIAL IM ONE (13:40)
--- NOTE | 2020-12-26 14:00 | NUR ---
35/M BIB SELF WITH C/O HIP PAIN AND DIZZINESS. PATIENT STATES HE HAS BEEN HAVING BILATERAL HIP PAIN, DENIES INJURY OR TRAUMA. STATES HE HAS BEEN EXPERIENCING INTERMITTENT EPISODES OF DIZZINESS AFTER EATING. DENIES CP, SOB, FEVER OR CHILLS.
[2020-12-26] MEDS ORDERED: METH-1681 PO (14:22)
[2020-12-26] MEDS ORDERED: ACET-10509 PO (14:22)
--- NOTE | 2020-12-26 14:49 | NUR ---
Patient discharged with v/s stable. Written and verbal after care instructions LUMBAR STRAIN given and explained. Patient alert, oriented and verbalized understanding of instructions. Ambulatory with steady gait. All questions addressed prior to discharge. ID band removed. Patient advised to follow up with PMD. Rx of TYLENOL EXTRA STRENGHT AND ROBAXIN given. Patient educated on indication of medication including possible reaction and side effects. Opportunity to ask questions provided and answered.
--- NOTE | 2020-12-26 14:50 | NUR ---
Patient given written and verbal discharge instructions and verbalizes understanding. Given copies of tests performed during visit. Patient is awake, alert and oriented. Ambulatory with steady gait. Refuses offer of snf placement. Given list of available shelters in surrounding areas.
== END 2020-12-26 14:50 | disposition home or self-care (01) ==
LOC: MED 12:54
DX: S39.012A Strain of muscle, fascia and tendon of lower back, initial encounter (principal); R03.0 Elevated blood-pressure reading, without diagnosis of hypertension; J45.909 Unspecified asthma, uncomplicated; Z79.899 Other long term (current) drug therapy; Z88.8 Allergy status to other drugs, medicaments and biological substances; Z91.013 Allergy to seafood; X58.XXXA Exposure to other specified factors, initial encounter; Y92.89 Other specified places as the place of occurrence of the external cause; Y93.01 Activity, walking, marching and hiking; Y99.8 Other external cause status
CPT/HCPCS: 96372; 99283; J1885

== ENCOUNTER 2021-01-29 03:00 | Emergency (ER) | payer OTHER, MEDICAID ==
[~2021-01-29] VITALS: Ht 175.3 cm; Wt 102.1 kg
[2021-01-29 03:00] VITALS: BP 153/113
[~2021-01-29 03:00] MED LIST changes: +METH-1681 PO; +ONDA-188 SL; -ONDA-24 SL
--- NOTE | 2021-01-29 03:08 | NUR ---
PT AMBULATED TO BED 09.
--- NOTE | 2021-01-29 03:10 | NUR ---
DR COLBY AT BEDSIDE FOR EXAM
--- NOTE | 2021-01-29 03:15 | NUR ---
RECEIVED PT IN BED 9 WITH C/O L FOOT PAIN X 2 DAY. PATIENT STATES NOTED L FOOT AND ANKLE SWELLING TODAY. PATIENT STATES PAIN 8/10 WHEN AMBULATING. LEFT FOOT NOTED WITH SWELLING AND DECREASED ROM. DENIES TRAUMA
--- NOTE | 2021-01-29 03:45 | NUR ---
XRAY AT BEDSIDE.
[2021-01-29] MEDS ORDERED: CEPH-588 PO (04:00)
[2021-01-29] MEDS ORDERED: NAPR-54 PO (04:00)
[2021-01-29] MEDS ORDERED: cephALEXin 500 MG CAP PO ONE (04:00)
[2021-01-29] MEDS ORDERED: IBUPROFEN 600 MG TAB PO ONE (04:00)
[2021-01-29 04:20] VITALS: BP 153/113
--- NOTE | 2021-01-29 04:20 | NUR ---
Patient discharged with v/s stable. Written and verbal after care instructions given and explained. Patient alert, oriented and verbalized understanding of instructions. Ambulatory with steady gait. All questions addressed prior to discharge. ID band removed. Patient advised to follow up with PMD. Rx of KEFLEX AND NAPROSYN given. Patient educated on indication of medication including possible reaction and side effects. Opportunity to ask questions provided and answered.
== END 2021-01-29 04:20 | disposition home or self-care (01) ==
LOC: MED 03:00
DX: M79.672 Pain in left foot (principal); J45.909 Unspecified asthma, uncomplicated; Z79.899 Other long term (current) drug therapy; Z91.013 Allergy to seafood; Z88.8 Allergy status to other drugs, medicaments and biological substances
CPT/HCPCS: 73630; 99283

== ENCOUNTER 2021-02-07 13:33 | Emergency (ER) | payer OTHER, MEDICAID ==
[~2021-02-07] VITALS: Ht 175.3 cm; Wt 111.1 kg
[~2021-02-07 13:33] MED LIST changes: +CEPH-588 PO; +NAPR-54 PO
[2021-02-07 13:46] VITALS: BP 160/114
--- NOTE | 2021-02-07 13:53 | NUR ---
Patient ambulated to bed 11 with steady/even gait.
--- NOTE | 2021-02-07 13:55 | NUR ---
35 y/o M BIB self from home c/o bilateral lower leg extremity pain x 2 weeks. Pt A&Ox4, ambulatory, states seen here 2 weeks ago for L leg pain, reports symptoms progressively worsen to bilateral lower extremities. Pt states 7/10 pain, throbbing/pressure/intermittent, non-radiating with palpation. Swelling and redness noted to RLE. States taking prescribed Keflex for 4 days only. +Pedal pulses in tact. Pt denies injury, trauma, SOB, chest pain. Bed locked in lowest position, side rails x1 PMH/Sx/Meds: bronchitis, albuterol NKDA
--- NOTE | 2021-02-07 14:00 | NUR ---
DR LANDA AT BEDSIDE EVALUATING PT
[2021-02-07] MEDS ORDERED: ACETAMINOPHEN 325 MG TAB PO ONE (14:05)
[2021-02-07] MEDS ORDERED: CLINDAMYCIN 150 MG CAP PO ONE (14:05)
[2021-02-07] MEDS ORDERED: hydroCHLOROthiazide 25 MG TAB PO ONE (14:10)
[2021-02-07] MEDS ORDERED: CLINDAMYCIN 150 MG CAP ONE (14:20)
[2021-02-07] MEDS ORDERED: CRUSHER, PILL MC ONE (14:26)
--- NOTE | 2021-02-07 14:30 | NUR ---
Lab at bedside
[2021-02-07 14:43] LABS: ANION GAP 13.5 (8-16); CARBON DIOXIDE 26.3 mmol/L (21-32); CREATININE 1.2 mg/dL (0.6-1.3); POTASSIUM 3.8 mmol/L (3.5-5.1)
[2021-02-07] MEDS ORDERED: HYDR12.51 PO (15:19)
[2021-02-07] MEDS ORDERED: CLIN300C52 PO (15:19)
[2021-02-07 15:29] VITALS: BP 149/99
--- NOTE | 2021-02-07 15:36 | NUR ---
Patient discharged with v/s stable. Written and verbal after care instructions given and explained. Patient alert, oriented and verbalized understanding of instructions. Ambulatory with steady gait. All questions addressed prior to discharge. ID band removed. Patient advised to follow up with PMD. Rx of Clindamycin, Hydrochlorothiazide given. Patient educated on indication of medication including possible reaction and side effects. Opportunity to ask questions provided and answered.
== END 2021-02-07 15:36 | disposition home or self-care (01) ==
LOC: MED 13:33
DX: L03.115 Cellulitis of right lower limb (principal); R60.0 Localized edema; J45.909 Unspecified asthma, uncomplicated; Z79.899 Other long term (current) drug therapy; Z88.8 Allergy status to other drugs, medicaments and biological substances; Z91.013 Allergy to seafood; Z59.00 Homelessness unspecified
CPT/HCPCS: 36415; 80048; 83036; 99284

== ENCOUNTER 2021-03-15 18:04 | Emergency (ER) | payer OTHER, MEDICAID ==
[~2021-03-15] VITALS: Ht 175.3 cm; Wt 62.6 kg
[~2021-03-15 18:04] MED LIST changes: -ACET-10509 PO; +CLIN300C52 PO; -DIPH25TA53 PO; +HYDR12.51 PO; -NAPR-54 PO; -ONDA-188 SL
[2021-03-15 19:01] VITALS: BP 201/129
--- NOTE | 2021-03-15 21:34 | NUR ---
WENT TO FIND PT . CALLED PT NAME THREE TIMES . SEARCHED LOBBY TENT AND OUTSIDE
== END 2021-03-15 21:57 | disposition left against medical advice (07) ==
LOC: MED 18:04
DX: B34.9 Viral infection, unspecified (principal); Z20.822 Contact with and (suspected) exposure to COVID-19; I10 Essential (primary) hypertension; J45.909 Unspecified asthma, uncomplicated; Z79.899 Other long term (current) drug therapy; Z88.8 Allergy status to other drugs, medicaments and biological substances; Z91.013 Allergy to seafood
CPT/HCPCS: 99283; U0003

== ENCOUNTER 2021-04-20 18:46 | Emergency (ER) | payer OTHER, MEDICAID ==
[~2021-04-20] VITALS: Ht 175.3 cm; Wt 90.7 kg
[2021-04-20 18:50] VITALS: BP 155/93
--- NOTE | 2021-04-20 18:57 | NUR ---
BIB SELF C/O ABD PAIN, COUGH, PADILLA, SOB X 2 MONTHS. PMH: ASTHMA.
--- NOTE | 2021-04-20 18:58 | NUR ---
Patient being evaluated by DR CAN at [facility].
[2021-04-20] MEDS ORDERED: KETOROLAC 60 MG/2 ML VIAL IM ONE (19:05)
[2021-04-20] MEDS ORDERED: ONDA8TAB87 PO (19:23)
[2021-04-20] MEDS ORDERED: IBUP-2213 PO (19:23)
[2021-04-20] MEDS ORDERED: PRED20TA5 PO (19:24)
[2021-04-20] MEDS ORDERED: ALBU0.0912 IH (19:24)
[2021-04-20 19:38] VITALS: BP 130/90
--- NOTE | 2021-04-20 19:38 | NUR ---
Patient discharged with v/s stable. Written and verbal after care instructions given and explained. Patient alert, oriented and verbalized understanding of instructions. Ambulatory with steady gait. All questions addressed prior to discharge. ID band removed. Patient advised to follow up with PMD. Rx of PROVENTIL, IBUPROFEN, ZOFRAN, DELTASONE given. Patient educated on indication of medication including possible reaction and side effects. Opportunity to ask questions provided and answered.
== END 2021-04-20 19:38 | disposition home or self-care (01) ==
LOC: MED 18:46
DX: R06.02 Shortness of breath (principal); R51.9 Headache, unspecified; R10.33 Periumbilical pain; J45.909 Unspecified asthma, uncomplicated; Z79.899 Other long term (current) drug therapy; Z79.2 Long term (current) use of antibiotics; Z88.8 Allergy status to other drugs, medicaments and biological substances; Z91.013 Allergy to seafood
CPT/HCPCS: 96372; 99283; J1885

== ENCOUNTER 2022-09-18 17:29 | Emergency (ER) | payer OTHER ==
[~2022-09-18] VITALS: Ht 175.3 cm; Wt 113.4 kg
[~2022-09-18 17:29] MED LIST changes: +ALBU0.0912 IH; +IBUP-2213 PO; +ONDA8TAB87 PO; +PRED20TA5 PO
[2022-09-18 17:32] VITALS: BP 132/83; PULSE 109; RESP 16; TEMP 97.7; O2SAT 95
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
[2022-09-18] MEDS ORDERED: IBUPROFEN 600 MG TAB PO ONE (17:55)
[2022-09-18 17:57] VITALS: O2SAT 95
--- NOTE | 2022-09-18 18:15 | NUR ---
xray at bedside
--- NOTE | 2022-09-18 19:00 | NUR ---
volar velcro splint applied to r wrist
[2022-09-18] MEDS ORDERED: IBUP-2213 PO (19:20)
--- NOTE | 2022-09-18 19:22 | NUR ---
REPORT GIVEN TO JOANNE DE LEON. TRANSFER OF CARE AT THIS TIME
== END 2022-09-18 19:22 | disposition home or self-care (01) ==
LOC: MED 17:29
DX: S63.8X1A Sprain of other part of right wrist and hand, initial encounter (principal); J44.9 Chronic obstructive pulmonary disease, unspecified; J45.909 Unspecified asthma, uncomplicated; Z91.013 Allergy to seafood; Z91.040 Latex allergy status; Z79.899 Other long term (current) drug therapy; X58.XXXA Exposure to other specified factors, initial encounter; Y93.89 Activity, other specified; Y92.89 Other specified places as the place of occurrence of the external cause; Y99.8 Other external cause status
CPT/HCPCS: 73130; 99283

== ENCOUNTER 2023-12-21 02:20 | Inpatient (IN) | payer OTHER ==
[~2023-12-21] VITALS: Ht 175.3 cm; Wt 113.4 kg
[2023-12-21 02:24] VITALS: BP 212/138; PULSE 96; RESP 20; TEMP 98; O2SAT 98
[2023-12-21] MEDS: ONDANSETRON 4 MG/2 ML VIAL IVP ONE (03:31)
[2023-12-21] MEDS: MORPHINE SULFATE 4 MG/ML SYR IVP ONE (03:32)
[2023-12-21 03:34] LABS: BASOPHILS % (AUTO) 0.3 % (0.0-2.0); EOSINOPHILS % (AUTO) 0.2 % (0.0-4.0); HEMATOCRIT 46.4 % (36-52); HEMOGLOBIN 15.5 g/dL (12.0-18.0); LYMPHOCYTES # (AUTO) 0.6 K/uL (2.0-11.5); LYMPHOCYTES % (AUTO) 6.3 % (20.5-51.1); MEAN CORPUSCULAR HEMOGLOBIN 31 pg (27-31); MEAN CORPUSCULAR HGB CONC 33 g/dL (33-37); MEAN CORPUSCULAR VOLUME 92.1 fL (80-94); MONOCYTES # (AUTO) 1.1 K/uL (0.8-1.0); MONOCYTES % (AUTO) 11.9 % (1.7-9.3); NEUTROPHILS # (AUTO) 7.7 K/uL (1.8-7.7); NEUTROPHILS % (AUTO) 81.3 % (42.2-75.2); PLATELET COUNT (AUTO) 181 K/uL (140-450); RED BLOOD CELL COUNT(AUTO) 5.04 MIL/uL (4.20-6.10); RED CELL DISTRIBUTION WIDTH 14.6 % (11.6-13.7); WHITE BLOOD COUNT (AUTO) 9.4 K/uL (4.8-10.8)
[2023-12-21 03:48] LABS: ALBUMIN 3.2 g/dL (3.4-5.0); BILIRUBIN,DIRECT 0.2 mg/dL (0.0-0.3); TOTAL BILIRUBIN 0.7 mg/dL (0.0-1.0); TOTAL PROTEIN, SERUM 7.6 g/dL (6.4-8.2)
[2023-12-21 03:55] LABS: ANION GAP 14.1 (8-16); CARBON DIOXIDE 26.4 mmol/L (21-32); CREATININE 1.9 mg/dL (0.6-1.3); POTASSIUM 3.5 mmol/L (3.5-5.1)
[2023-12-21] MEDS ORDERED: ceFAZolin 1,000 MG VIAL ONE (06:31)
[2023-12-21] MEDS: BUPIVACAINE-MPF 0.25% 30 ML VIAL INJ ONE (07:52)
[2023-12-21] MEDS ORDERED: PROPOFOL 200 MG/20 ML VIAL IV ONE (08:00)
[2023-12-21] MEDS ORDERED: ONDANSETRON 4 MG/2 ML VIAL ONE (08:00)
[2023-12-21] MEDS ORDERED: KETOROLAC 30 MG/ML VIAL ONE (08:00)
[2023-12-21] MEDS ORDERED: SEVOFLURANE 250 ML BTL INH ONE (08:00)
[2023-12-21] MEDS ORDERED: GLYCOPYRROLATE 0.2 MG/ML VIAL ONE (08:00)
[2023-12-21] MEDS ORDERED: ONDANSETRON 4 MG/2 ML VIAL IVP PRN (09:50)
[2023-12-21] MEDS ORDERED: MEPERIDINE 25 MG/ML SYR IVP PRN (09:50)
[2023-12-21] MEDS: POTASSIUM CHL 10 MEQ/D5-1/2NS 1,000 ML IV SCH (10:59)
[2023-12-21] MEDS: PIPERACILLIN/TAZOBACTAM 3.375 GM in DEXTROSE 5% 50 ML IV SCH (13:24)
[2023-12-21] MEDS: HYDROmorphone 1 MG/ML AMP IVP PRN (13:31)
[2023-12-21 13:46] VITALS: RESP 25; O2SAT 97
[2023-12-21] MEDS: NACL 0.45% 1,000 ML IV SCH (14:12)
[2023-12-21 16:00] VITALS: BP 170/120; RESP 25; TEMP 98; O2SAT 97
[2023-12-21 17:16] LABS: APPEARANCE,URINE CLEAR (CLEAR); BILIRUBIN,URINE 1+ (NEGATIVE); BLOOD, URINE NEGATIVE (NEGATIVE); COLOR,URINE BROWN (YELLOW); LEUKOCYTE ESTERASE ,URINE NEGATIVE (NEGATIVE); NITRITE, URINE NEGATIVE (NEGATIVE); PH,URINE 5.5 (5.0-9.0); PROTEIN,URINE 3+ (NEGATIVE); UGLUCOSE NEGATIVE (NEGATIVE); UROBILINOGEN,URINE 0.2 EU/dL (0.2 - 1)
[2023-12-21 17:20] LABS: ICTOTEST NEGATIVE (NEGATIVE)
[2023-12-21] MEDS: MORPHINE SULFATE 2 MG/ML SYR IVP PRN (17:34)
[2023-12-21] MEDS: hydrALAZINE 20 MG/ML VIAL IVP PRN (17:34)
[2023-12-21 20:00] VITALS: BP 169/114; PULSE 109; RESP 25; TEMP 98; O2SAT 97
[2023-12-22] MEDS: hydrALAZINE 20 MG/ML VIAL IVP PRN ×2 (00:19→16:50)
[2023-12-22 04:00] VITALS: BP 157/94; RESP 23; TEMP 99.9; O2SAT 92
[2023-12-22 06:53] LABS: BASOPHILS % (AUTO) 0.4 % (0.0-2.0); EOSINOPHILS % (AUTO) 0.3 % (0.0-4.0); HEMATOCRIT 41.5 % (36-52); HEMOGLOBIN 13.6 g/dL (12.0-18.0); LYMPHOCYTES # (AUTO) 0.5 K/uL (2.0-11.5); LYMPHOCYTES % (AUTO) 8.3 % (20.5-51.1); MEAN CORPUSCULAR HEMOGLOBIN 30 pg (27-31); MEAN CORPUSCULAR HGB CONC 33 g/dL (33-37); MEAN CORPUSCULAR VOLUME 93.2 fL (80-94); MONOCYTES % (AUTO) 15.9 % (1.7-9.3); NEUTROPHILS # (AUTO) 4.7 K/uL (1.8-7.7); NEUTROPHILS % (AUTO) 75.1 % (42.2-75.2); PLATELET COUNT (AUTO) 183 K/uL (140-450); RED BLOOD CELL COUNT(AUTO) 4.45 MIL/uL (4.20-6.10); RED CELL DISTRIBUTION WIDTH 14.6 % (11.6-13.7); WHITE BLOOD COUNT (AUTO) 6.3 K/uL (4.8-10.8)
[2023-12-22 07:16] LABS: ALBUMIN 2.7 g/dL (3.4-5.0); ANION GAP 11.9 (8-16); CALCIUM 8.4 mg/dL (8.5-10.1); CARBON DIOXIDE 28.7 mmol/L (21-32); CREATININE 2.4 mg/dL (0.6-1.3); POTASSIUM 3.6 mmol/L (3.5-5.1); TOTAL BILIRUBIN 1.1 mg/dL (0.0-1.0); TOTAL PROTEIN, SERUM 6.9 g/dL (6.4-8.2)
[2023-12-22 08:00] VITALS: BP 172/108; PULSE 111; RESP 20; TEMP 98.1; O2SAT 96
[2023-12-22 12:00] VITALS: BP 172/108; PULSE 111; RESP 20; TEMP 98.1; O2SAT 96
[2023-12-22 16:00] VITALS: BP 187/95; PULSE 112; RESP 20; TEMP 102.1; O2SAT 93
[2023-12-22] MEDS: ACETAMINOPHEN 325 MG TAB PO PRN (16:50)
[2023-12-22] MEDS: DEXT 5% / NACL 0.45% 1,000 ML IV SCH (16:52)
[2023-12-22] MEDS: ACETAMINOPHEN 100 ML IV PRN (17:21)
[2023-12-22 20:00] VITALS: BP 132/75; PULSE 110; RESP 19; TEMP 98.1; O2SAT 94; O2SAT 95
[2023-12-22 20:12] LABS: URINE TOTAL PROTEIN 232.1 mg/dL (0-12); URINE TPRO CREAT RATIO 1.1 (0-0.20)
[2023-12-22] MEDS: HYDROmorphone 1 MG/ML AMP IVP PRN (20:21)
[2023-12-22] MEDS: METOPROLOL 25 MG TAB PO SCH (20:53)
[2023-12-22] MEDS ORDERED: ACETAMINOPHEN 650 MG SUPP RC PRN (22:40)
[2023-12-23] VITALS (8 sets, daily range): BP systolic 132–179; BP diastolic 75–107; PULSE 80–115; RESP 19–22; TEMP 98–99.3; O2SAT 93–98
[2023-12-23 06:09] LABS: ALBUMIN 2.3 g/dL (3.4-5.0); ANION GAP 11.6 (8-16); CALCIUM 8.1 mg/dL (8.5-10.1); CARBON DIOXIDE 25.9 mmol/L (21-32); CREATININE 1.9 mg/dL (0.6-1.3); POTASSIUM 3.5 mmol/L (3.5-5.1); TOTAL BILIRUBIN 1.2 mg/dL (0.0-1.0); TOTAL PROTEIN, SERUM 6.6 g/dL (6.4-8.2)
[2023-12-23] MEDS: MORPHINE SULFATE 2 MG/ML SYR IVP SCH (12:02)
[2023-12-23] MEDS: ACETAMINOPHEN 100 ML IV PRN (16:11)
[2023-12-23] MEDS ORDERED: cloNIDine-TTS1 0.1 MG/24 HR 1 EA PATCH TD SCH (19:30)
[2023-12-23] MEDS: LABETALOL 20 MG/4 ML VIAL IVP SCH (20:27)
[2023-12-24 01:22] VITALS: O2SAT 97
[2023-12-24 04:00] VITALS: BP 164/95; PULSE 94; RESP 20; TEMP 98.1; O2SAT 95
[2023-12-24 08:00] VITALS: BP_SYST 144; BP_SYST 181; BP_DIAS 104; BP_DIAS 85; PULSE 105; PULSE 94; RESP 18; RESP 19; TEMP 97.9; TEMP 98.8; O2SAT 97; O2SAT 98
[2023-12-24 08:10] LABS: CHLORIDE,URINE RANDOM 24 mmol/L (110-250); CREATININE,URINE RANDOM 206 mg/dL (30-125); URINE SODIUM, RANDOM 39 mmol/l (40-220)
[2023-12-24 09:29] LABS: BASOPHILS % (AUTO) 0.5 % (0.0-2.0); EOSINOPHILS # (AUTO) 0.2 K/uL (0-0.4); EOSINOPHILS % (AUTO) 2.4 % (0.0-4.0); HEMATOCRIT 40.1 % (36-52); HEMOGLOBIN 13.1 g/dL (12.0-18.0); LYMPHOCYTES # (AUTO) 0.7 K/uL (2.0-11.5); LYMPHOCYTES % (AUTO) 7.4 % (20.5-51.1); MEAN CORPUSCULAR HEMOGLOBIN 30 pg (27-31); MEAN CORPUSCULAR HGB CONC 33 g/dL (33-37); MEAN CORPUSCULAR VOLUME 93.3 fL (80-94); MONOCYTES # (AUTO) 0.9 K/uL (0.8-1.0); MONOCYTES % (AUTO) 10.1 % (1.7-9.3); NEUTROPHILS # (AUTO) 7.5 K/uL (1.8-7.7); NEUTROPHILS % (AUTO) 79.6 % (42.2-75.2); PLATELET COUNT (AUTO) 233 K/uL (140-450); RED CELL DISTRIBUTION WIDTH 14.5 % (11.6-13.7); WHITE BLOOD COUNT (AUTO) 9.4 K/uL (4.8-10.8)
[2023-12-24 09:37] LABS: ALBUMIN 2.3 g/dL (3.4-5.0); ANION GAP 8.3 (8-16); CALCIUM 8.4 mg/dL (8.5-10.1); CARBON DIOXIDE 29.3 mmol/L (21-32); CREATININE 1.8 mg/dL (0.6-1.3); POTASSIUM 3.6 mmol/L (3.5-5.1); TOTAL BILIRUBIN 1.2 mg/dL (0.0-1.0); TOTAL PROTEIN, SERUM 6.8 g/dL (6.4-8.2)
[2023-12-24] MEDS: FUROSEMIDE 40 MG/4 ML VIAL IVP SCH (09:39)
[2023-12-24] MEDS ORDERED: CLINICAL MONITORING MC PRN (09:55)
[2023-12-24] MEDS: cloNIDine-TTS1 0.1 MG/24 HR 1 EA PATCH TD SCH (15:17)
[2023-12-24 16:00] VITALS: BP 181/104; PULSE 94; RESP 18; TEMP 98.8; O2SAT 98
[2023-12-24 20:00] VITALS: BP 140/74; PULSE 92; RESP 18; TEMP 97.4; O2SAT 98
[2023-12-24 20:15] VITALS: PULSE 92; RESP 20; O2SAT 97
[2023-12-25 05:10] VITALS: BP 180/116; PULSE 86; RESP 16; TEMP 97.2; O2SAT 98
[2023-12-25] MEDS: hydrALAZINE 20 MG/ML VIAL IVP PRN (05:22)
[2023-12-25 08:00] VITALS: PULSE 92; RESP 18; TEMP 96.9; O2SAT 96
[2023-12-25 09:55] LABS: BASOPHILS # (AUTO) 0.1 K/uL (0.00-0.22); BASOPHILS % (AUTO) 0.9 % (0.0-2.0); EOSINOPHILS # (AUTO) 0.3 K/uL (0-0.4); EOSINOPHILS % (AUTO) 2.7 % (0.0-4.0); HEMATOCRIT 44.8 % (36-52); HEMOGLOBIN 14.6 g/dL (12.0-18.0); LYMPHOCYTES # (AUTO) 0.9 K/uL (2.0-11.5); MEAN CORPUSCULAR HEMOGLOBIN 30 pg (27-31); MEAN CORPUSCULAR HGB CONC 33 g/dL (33-37); MEAN CORPUSCULAR VOLUME 92.9 fL (80-94); MONOCYTES # (AUTO) 0.9 K/uL (0.8-1.0); MONOCYTES % (AUTO) 9.2 % (1.7-9.3); NEUTROPHILS # (AUTO) 7.2 K/uL (1.8-7.7); NEUTROPHILS % (AUTO) 77.2 % (42.2-75.2); PLATELET COUNT (AUTO) 299 K/uL (140-450); RED BLOOD CELL COUNT(AUTO) 4.82 MIL/uL (4.20-6.10); RED CELL DISTRIBUTION WIDTH 14.7 % (11.6-13.7); WHITE BLOOD COUNT (AUTO) 9.3 K/uL (4.8-10.8)
[2023-12-25 10:16] LABS: ANION GAP 10.5 (8-16); CALCIUM 9.6 mg/dL (8.5-10.1); CARBON DIOXIDE 28.1 mmol/L (21-32); CREATININE 1.9 mg/dL (0.6-1.3); POTASSIUM 3.6 mmol/L (3.5-5.1)
[2023-12-25 16:00] VITALS: BP 168/110; PULSE 95; RESP 18; TEMP 98.4; O2SAT 96
[2023-12-25] MEDS: NIFEdipine 90 MG TABER PO SCH (17:14)
[2023-12-25 20:00] VITALS: PULSE 96; RESP 18; TEMP 98.1; O2SAT 96
[2023-12-26] VITALS: BP 158/103; PULSE 96; RESP 18; TEMP 98.1; O2SAT 96
[2023-12-26 06:55] LABS: BASOPHILS # (AUTO) 0.1 K/uL (0.00-0.22); BASOPHILS % (AUTO) 0.8 % (0.0-2.0); EOSINOPHILS # (AUTO) 0.3 K/uL (0-0.4); EOSINOPHILS % (AUTO) 3.3 % (0.0-4.0); HEMATOCRIT 41.7 % (36-52); HEMOGLOBIN 13.7 g/dL (12.0-18.0); LYMPHOCYTES # (AUTO) 0.9 K/uL (2.0-11.5); LYMPHOCYTES % (AUTO) 11.2 % (20.5-51.1); MEAN CORPUSCULAR HEMOGLOBIN 30 pg (27-31); MEAN CORPUSCULAR HGB CONC 33 g/dL (33-37); MEAN CORPUSCULAR VOLUME 92.7 fL (80-94); MONOCYTES # (AUTO) 0.9 K/uL (0.8-1.0); MONOCYTES % (AUTO) 10.1 % (1.7-9.3); NEUTROPHILS # (AUTO) 6.3 K/uL (1.8-7.7); NEUTROPHILS % (AUTO) 74.6 % (42.2-75.2); PLATELET COUNT (AUTO) 304 K/uL (140-450); RED BLOOD CELL COUNT(AUTO) 4.49 MIL/uL (4.20-6.10); RED CELL DISTRIBUTION WIDTH 14.6 % (11.6-13.7); WHITE BLOOD COUNT (AUTO) 8.5 K/uL (4.8-10.8)
[2023-12-26 07:07] LABS: ANION GAP 13.1 (8-16); CALCIUM 9.1 mg/dL (8.5-10.1); CARBON DIOXIDE 25.3 mmol/L (21-32); CREATININE 1.9 mg/dL (0.6-1.3); POTASSIUM 3.4 mmol/L (3.5-5.1)
[2023-12-26 08:00] VITALS: BP 137/94; PULSE 80; RESP 20; TEMP 97.9; O2SAT 100
[2023-12-26] MEDS: KCL 20 MEQ IN 100 mL PREMIX 200 ML IV SCH (09:41)
[2023-12-26] MEDS: POTASSIUM CHLORIDE 10 MEQ TABER PO SCH (11:18)
[2023-12-26 16:00] VITALS: BP 157/105; PULSE 76; RESP 20; TEMP 98.6; O2SAT 100
[2023-12-26 20:00] VITALS: PULSE 98; RESP 19; TEMP 97.1; O2SAT 98
[2023-12-26] MEDS: METOPROLOL 25 MG TAB PO SCH (20:40)
[2023-12-27] VITALS: BP 164/105; PULSE 98; RESP 19; TEMP 97.1; O2SAT 98
[2023-12-27 08:00] VITALS: BP 133/65; PULSE 91; PULSE 92; RESP 17; TEMP 97.1; TEMP 98; O2SAT 98
[2023-12-27 09:12] LABS: BASOPHILS # (AUTO) 0.1 K/uL (0.00-0.22); BASOPHILS % (AUTO) 0.7 % (0.0-2.0); EOSINOPHILS # (AUTO) 0.2 K/uL (0-0.4); EOSINOPHILS % (AUTO) 2.1 % (0.0-4.0); HEMATOCRIT 43.7 % (36-52); HEMOGLOBIN 14.4 g/dL (12.0-18.0); LYMPHOCYTES # (AUTO) 1.1 K/uL (2.0-11.5); LYMPHOCYTES % (AUTO) 9.9 % (20.5-51.1); MEAN CORPUSCULAR HEMOGLOBIN 31 pg (27-31); MEAN CORPUSCULAR HGB CONC 33 g/dL (33-37); MEAN CORPUSCULAR VOLUME 92.6 fL (80-94); MONOCYTES # (AUTO) 0.8 K/uL (0.8-1.0); MONOCYTES % (AUTO) 7.5 % (1.7-9.3); NEUTROPHILS # (AUTO) 8.7 K/uL (1.8-7.7); NEUTROPHILS % (AUTO) 79.8 % (42.2-75.2); PLATELET COUNT (AUTO) 354 K/uL (140-450); RED BLOOD CELL COUNT(AUTO) 4.72 MIL/uL (4.20-6.10); RED CELL DISTRIBUTION WIDTH 14.5 % (11.6-13.7); WHITE BLOOD COUNT (AUTO) 10.9 K/uL (4.8-10.8)
[2023-12-27 09:26] LABS: ANION GAP 14.1 (8-16); CALCIUM 9.4 mg/dL (8.5-10.1); CARBON DIOXIDE 25.2 mmol/L (21-32); CREATININE 1.6 mg/dL (0.6-1.3); POTASSIUM 4.3 mmol/L (3.5-5.1)
[2023-12-27] MEDS: LOSARTAN 25 MG TAB PO SCH (10:30)
[2023-12-27] MEDS ORDERED: ACET500T99 PO (11:26)
[2023-12-27] MEDS ORDERED: LOSA-269 PO (11:26)
[2023-12-27 16:00] VITALS: BP 136/66; PULSE 84; RESP 17; TEMP 97.8; O2SAT 98
[2023-12-27 16:29] VITALS: BP 136/66; PULSE 84; RESP 17; TEMP 97.8
== END 2023-12-27 16:50 | disposition home or self-care (01) | DRG 329 ==
LOC: MED 02:20 → MTU 07:07
PROVIDERS: ADMIT Internal Medicine; ATTEND Internal Medicine
PROC: 0DB80ZZ Excision of Small Intestine, Open Approach (ICD-10-PCS; 2023-12-21)
PROC: 0WQF0ZZ Repair Abdominal Wall, Open Approach (ICD-10-PCS; principal; 2023-12-21 07:30)
DX: K42.0 Umbilical hernia with obstruction, without gangrene (principal); N17.0 Acute kidney failure with tubular necrosis; E44.0 Moderate protein-calorie malnutrition; K91.89 Other postprocedural complications and disorders of digestive system; K56.7 Ileus, unspecified; R65.10 Systemic inflammatory response syndrome (SIRS) of non-infectious origin without acute organ dysfunction; J44.9 Chronic obstructive pulmonary disease, unspecified; I12.9 Hypertensive chronic kidney disease with stage 1 through stage 4 chronic kidney disease, or unspecified chronic kidney disease; N18.9 Chronic kidney disease, unspecified; E66.01 Morbid (severe) obesity due to excess calories; E78.5 Hyperlipidemia, unspecified; Y83.8 Other surgical procedures as the cause of abnormal reaction of the patient, or of later complication, without mention of misadventure at the time of the procedure; Z88.8 Allergy status to other drugs, medicaments and biological substances; Z91.013 Allergy to seafood; Z68.36 Body mass index [BMI] 36.0-36.9, adult; Z79.899 Other long term (current) drug therapy
CPT/HCPCS: 36415; 74018; 76770; 80048; 80053; 80076; 81003; 82436; 82570; 83605; 83690; 84300; 85025; 87040; 87081; 87205; 88302; 88307; 96365; 96375; 99291; J0360; J0690; J1171; J1885; J1940; J2270; J2405; J2543; J2704; J3480; J3490; J7060; J7120; Q0092

== ENCOUNTER 2023-12-28 01:50 | Emergency (ER) | payer OTHER ==
[~2023-12-28] VITALS: Ht 177.8 cm; Wt 99.8 kg
[~2023-12-28 01:50] MED LIST changes: +ACET500T99 PO; -CEPH-588 PO; -CLIN300C52 PO; +LOSA-269 PO; -PRED20TA5 PO
[2023-12-28 01:53] VITALS: BP 160/102; PULSE 64; RESP 16; TEMP 97.7; O2SAT 98
[2023-12-28 03:15] VITALS: BP 160/102; PULSE 64; RESP 16; TEMP 97.7; O2SAT 98
== END 2023-12-28 03:15 | disposition home or self-care (01) ==
LOC: MED 01:50
DX: Z48.01 Encounter for change or removal of surgical wound dressing (principal); J44.9 Chronic obstructive pulmonary disease, unspecified; I10 Essential (primary) hypertension; Z79.899 Other long term (current) drug therapy; Z88.8 Allergy status to other drugs, medicaments and biological substances; Z91.013 Allergy to seafood
CPT/HCPCS: 99281